=== PATIENT | male | born 1980 | race Asian ===

== ENCOUNTER 2021-11-03 14:36 | Inpatient (IN) | payer BC, SELFPAY ==
[~2021-11-03] VITALS: Ht 180.3 cm; Wt 136.1 kg
[2021-11-03 14:36] VITALS: BP_SYST 103
--- NOTE | 2021-11-03 14:45 | NUR ---
PATIENT BIBA FROM HOME AFTER FAMILY UNABLE TO REACH PATIENT ON PHONE. PATIENT FOUND DOWN WITH CYANOTIC LIPS, PER REPORT FROM FIRE AND ENGINEERING PROJECT DESIGNER. PLACED ON NRB DURING TRANSPORT BY FIRE. NO SIGNIFICANT MEDICAL HX. NO PREVIOUS COVID VACCINATION, BUT PER PATIENT, POSITIVE FOR COVID 2 WEEKS AGO.
--- NOTE | 2021-11-03 14:45 | NUR ---
Patient to ER bed 8 to gown for evaluation. Side rails up. Report given to .
--- NOTE | 2021-11-03 15:00 | NUR ---
ER at bedside examining patient.
[2021-11-03 15:25] LABS: HEMATOCRIT 42.9 % (36-54); HEMOGLOBIN 14.7 g/dL (14.0-18.0); MEAN CORPUSCULAR HEMOGLOBIN 27 pg (27-31); MEAN CORPUSCULAR HGB CONC 34 % (32-36); MEAN CORPUSCULAR VOLUME 79 fL (79.0-98.0); PLATELET COUNT (AUTO) 281 K/uL (130-430); RED CELL DISTRIBUTION WIDTH 14.3 % (9.0-15.0); WHITE BLOOD COUNT (AUTO) 12.8 K/uL (4.8-10.8)
--- NOTE | 2021-11-03 15:30 | NUR ---
88% ON NRB 100%. NOTIFIED MD GRAMAJO. NO NEW ORDERS
[2021-11-03 15:36] LABS: CALCIUM 7.6 mg/dL (8.4-11.0); CREATININE 1.72 mg/dL (0.55-1.30); POTASSIUM 3.1 mmol/L (3.5-5.1)
[2021-11-03 15:41] LABS: ALBUMIN 2.2 g/dL (3.4-4.8); TOTAL BILIRUBIN 0.9 mg/dL (0.0-1.0)
--- NOTE | 2021-11-03 16:30 | NUR ---
REC'D CRITICAL FOR POSITIVE COVID. MD GRAMAJO AWARE.
[2021-11-03] MEDS ORDERED: IOHEXOL 350 mgI/mL, 150 ML INFUS..BTL IV ONE ×2 (17:00→17:53)
[2021-11-03] MEDS ORDERED: AZITHROMYCIN 1,000 MG in NS 250 ML IV ONE (17:15)
[2021-11-03 17:26] LABS: BAND % (MANUAL) 11 % (0-6); BASOPHILS % (MANUAL) 0 % (0-2); EOSINOPHILS % (MANUAL) 0 % (0-7); LYMPHOCYTES % (MANUAL) 9 % (20-46); MONOCYTES % (MANUAL) 2 % (0-11)
[2021-11-03] MEDS ORDERED: DEXAMETHASONE SOD PHOSPHATE 4 MG/ML VIAL IVP ONE (17:30)
[2021-11-03] MEDS ORDERED: cefTRIAXone 1 GM in D5W 50 ML IV ONE (17:45)
[2021-11-03] MEDS ORDERED: AZITHROMYCIN 500 MG in NS 250 ML IV ONE (17:45)
[2021-11-03] MEDS ORDERED: cefTRIAXone 1 GM VIAL ONE (17:48)
--- NOTE | 2021-11-03 18:02 | NUR ---
PATIENT AT CT
[2021-11-03] MEDS ORDERED: MORPHINE 4 MG INJ. 4 MG/ML VIAL ONE (18:09)
[2021-11-03] MEDS ORDERED: AZITHROMYCIN 500 MG/VIAL (ZITHROMAX) IV ONE (18:13)
[2021-11-03] MEDS: MORPHINE 4 MG INJ. 4 MG/ML VIAL IVP PRN (18:39)
--- NOTE | 2021-11-03 19:10 | NUR ---
received report from day shift RN. Pt sitting in bed, on NRB, NAD.
--- NOTE | 2021-11-03 22:50 | NUR ---
s/w Dr. Soliz regarding patient desaturating on NRB. VORB to initiate Hi flow O2 and if no improvment ok to use Hi flow with NRB.
[2021-11-03] MEDS: ENOXAPARIN SODIUM 40 MG/0.4 ML SYRINGE SUBCUT SCH (23:13)
[2021-11-03] MEDS: FAMOTIDINE PF 20 MG/2 ML VIAL IVP SCH (23:13)
--- NOTE | 2021-11-04 03:00 | NUR ---
NRB facemask applied in addition to HFNC, SPO2 increases to 93%.
[2021-11-04 08:01] LABS: BASOPHILS % (AUTO) 0.4 % (0.0-2.0); EOSINOPHILS % (AUTO) 0.2 % (0.0-4.0); HEMATOCRIT 43.2 % (36-54); HEMOGLOBIN 14.6 g/dL (14.0-18.0); LYMPHOCYTES # (AUTO) 0.6 K/uL (1.0-5.5); LYMPHOCYTES % (AUTO) 5.3 % (20.5-51.5); MEAN CORPUSCULAR HEMOGLOBIN 27 pg (27-31); MEAN CORPUSCULAR HGB CONC 34 % (32-36); MEAN CORPUSCULAR VOLUME 81 fL (79.0-98.0); MONOCYTES # (AUTO) 0.7 K/uL (0.0-1.0); MONOCYTES % (AUTO) 5.7 % (1.7-9.3); NEUTROPHILS # (AUTO) 10.6 K/uL (1.8-7.7); NEUTROPHILS % (AUTO) 88.4 % (40.0-70.0); PLATELET COUNT (AUTO) 221 K/uL (130-430); RED BLOOD CELL COUNT(AUTO) 5.32 MIL/uL (4.2-6.2); RED CELL DISTRIBUTION WIDTH 14.4 % (9.0-15.0); WHITE BLOOD COUNT (AUTO) 11.9 K/uL (4.8-10.8)
[2021-11-04 08:11] LABS: CALCIUM 7.9 mg/dL (8.4-11.0); CREATININE 1.24 mg/dL (0.55-1.30); POTASSIUM 3.8 mmol/L (3.5-5.1)
[2021-11-04 08:15] LABS: ALBUMIN 2.2 g/dL (3.4-4.8); TOTAL BILIRUBIN 0.8 mg/dL (0.0-1.0)
[2021-11-04] MEDS ORDERED: cefTRIAXone 1 GM VIAL ONE (08:41)
[2021-11-04] MEDS ORDERED: AZITHROMYCIN 500 MG/VIAL (ZITHROMAX) IV ONE (08:43)
[2021-11-04 08:58] LABS: C-REACTIVE PROTEIN QUANT 26.4 mg/dL (0-0.5)
[2021-11-04] MEDS ORDERED: cefTRIAXone 1 GM in D5W 50 ML IV SCH ×4 (09:00)
[2021-11-04] MEDS ORDERED: AZITHROMYCIN 500 MG in NS 250 ML IV SCH (09:00)
[2021-11-04] MEDS ORDERED: DEXAMETHASONE SOD PHOSPHATE 4 MG/ML VIAL IVP SCH (09:00)
--- NOTE | 2021-11-04 09:06 | NUR ---
REPORT GIVEN TO NIKOLAS RICHARD/ DANY RICHARD
--- NOTE | 2021-11-04 09:10 | NUR ---
POC reviewed, Pt. denies SOB on HIFLO O2 and non rebreather, O2 sat 94%, denies SOB, IV to left arm infiltrated and IV to right arm was out of place
[2021-11-04] MEDS: DEXAMETHASONE SOD PHOSPHATE 4 MG/ML VIAL IVP SCH (09:15)
[2021-11-04] MEDS: ENOXAPARIN SODIUM 40 MG/0.4 ML SYRINGE SUBCUT SCH (09:16)
[2021-11-04] MEDS: FAMOTIDINE PF 20 MG/2 ML VIAL IVP SCH (09:16)
[2021-11-04] MEDS: CHOLECALCIFEROL (VITAMIN D3) 5,000 UNIT TABLET PO SCH (09:26)
[2021-11-04] MEDS: ASCORBIC ACID 500 MG TABLET PO SCH ×2 (09:26→21:00)
--- NOTE | 2021-11-04 10:00 | NUR ---
3 attempts to restart IV unsuccessful at this time
[2021-11-04] MEDS: DOXYCYCLINE HYCLATE 100 MG in D5W 100 ML IV SCH ×3 (13:00)
[2021-11-04] MEDS ORDERED: TOCILIZUMAB 800 MG in NS 100 ML IV ONE (16:00)
--- NOTE | 2021-11-04 19:46 | NUR ---
Assumed care of patient at change of shift. Introduced self to patient, resting comfortably at this time in mild distress but is tolerable per patient. Patient noted to have pox of 80% on high flow o2 but when placed w/ nrb at 15l pox noted to increase to 92%. patient currently receiving iv abx w/o any adverse reaction. iv site to RAC patent and intact. Bed to low position sr up, continue to monitor.
--- NOTE | 2021-11-04 21:30 | NUR ---
patient resting comfortably at this time in no acute distress. delay in administrating medication 2nd to medication not available. patient still saturating at 92% on nrb and high flow oxygen. Continue to monitor. bed to low position sr up.
--- NOTE | 2021-11-04 23:30 | NUR ---
patient still saturating at 92% on nrb and high flow oxygen. to be medicated as ordered, iv site patent and intact. bed to low position sr up, continue to monitor.
[2021-11-05] VITALS (9 sets, daily range): BP systolic 109–146
[2021-11-05] MEDS: IVERMECTIN 3 MG TABLET PO SCH
--- NOTE | 2021-11-05 01:30 | NUR ---
patient resting comfortably at this time in no acute distress. bed to low position sr up.
--- NOTE | 2021-11-05 07:06 | NUR ---
patient resting comfortably at this time. Still in mild/mod distress. Bed to low position sr up, continue to monitor.
[2021-11-05] MEDS: DEXAMETHASONE SOD PHOSPHATE 4 MG/ML VIAL IVP SCH (08:49)
[2021-11-05] MEDS: DOXYCYCLINE HYCLATE 100 MG in D5W 100 ML IV SCH (08:49)
[2021-11-05] MEDS: FAMOTIDINE PF 20 MG/2 ML VIAL IVP SCH ×3 (08:50→21:00)
[2021-11-05] MEDS: ENOXAPARIN SODIUM 40 MG/0.4 ML SYRINGE SUBCUT SCH (08:52)
[2021-11-05] MEDS ORDERED: cefTRIAXone 1 GM in D5W 50 ML IV SCH (09:00)
--- NOTE | 2021-11-05 09:15 | NUR ---
IV IN RIGHT A/C NOT WORKING, SALINE LOCK DISCONTINUED, CATHETER KINKED. NEW IV INSERTED IN RIGHT A/C USING 22 GAUGE CATHETER, AFTER 3 ATTEMPTS.
--- NOTE | 2021-11-05 09:55 | NUR ---
pt's sister Jocy called, updated her on his status.
--- NOTE | 2021-11-05 10:33 | NUR ---
Dietitian Recommendations *Recommend: [facility]. Please see Nutritional Assessment for details. CHAPARRITA VELAZQUEZ
--- NOTE | 2021-11-05 11:20 | NUR ---
IV SITE IN RIGHT INFILTRATED, AND D/CD. DR COLLAZO ATTEMPTED TO INSERT IV INTO RIGHT JUGULAR AND RIGHT FEMORAL AREA WITH NO SUCCESS.
[2021-11-05] MEDS: CHOLECALCIFEROL (VITAMIN D3) 5,000 UNIT TABLET PO SCH (12:04)
[2021-11-05] MEDS: ASCORBIC ACID 500 MG TABLET PO SCH ×2 (12:04→21:00)
--- NOTE | 2021-11-05 15:05 | NUR ---
TRANSFERRED CARE TO JOSE MANUEL IABRRA. ALL PERSONAL BELONGINGS MOVED TO ASSIGNED ROOM.
--- NOTE | 2021-11-05 15:51 | NUR ---
CONSULT ID CONSULTING MD: DR. JOHNSON PERSON NOTIFIED: MINDY DIALED: [phone] ORDERED BY: DR. DIAZ FAXED FACE SHEET
--- NOTE | 2021-11-05 17:14 | NUR ---
Received Patient Received patient in ICU at 1510. Patient is alert and oriented x4 having shortness of breath. Oxygen saturation in the high 80's and low 90's on a combination high flow nasal cannula and facemask. Patient does not have an IV line, PICC line has been consented and ordered. Patient is able to turn and prone self. Addendum: 11/05/21 at 1717 by John Varela RN Received patient at 1510
[2021-11-05 19:26] LABS: INR 1.1 (0.80-1.20); PROTHROMBIN TIME 11.7 SECS (9.5-12.5)
[2021-11-05 19:35] LABS: BILIRUBIN,URINE NEGATIVE (NEGATIVE); BLOOD, URINE NEGATIVE (NEGATIVE); CLARITY/URINE CLEAR (CLEAR); COLOR,URINE YELLOW (YELLOW); GLUCOSE,URINE NEGATIVE (NEGATIVE); KETONES,URINE NEGATIVE (NEGATIVE); LEUKOCYTE ESTERASE ,URINE NEGATIVE (NEGATIVE); NITRITE, URINE NEGATIVE (NEGATIVE); PH,URINE 6.5 (5.0-8.0); PROTEIN URINE TRACE (NEGATIVE)
[2021-11-05 21:01] LABS: BACTERIA,URINE MODERATE /HPF (None Seen)
--- NOTE | 2021-11-05 23:29 | NUR ---
PAGED FOR ORDERS SPOKE TO: ROBYN
--- NOTE | 2021-11-05 23:55 | NUR ---
PAGED FOR ORDERS SECOND ATTEMPT SPOKE TO: AUTOMATED EXCHANGE
[2021-11-06] VITALS (26 sets, daily range): BP systolic 74–164
[2021-11-06] MEDS: DOXYCYCLINE HYCLATE 100 MG in D5W 100 ML IV SCH ×3 (00:21→08:32)
[2021-11-06] MEDS: D5/0.45 NS 1,000 ML IV SCH ×2 (02:00→15:20)
[2021-11-06] MEDS: PIPERACILLIN/TAZO 4.5GM/DEX-IS 100 ML IV SCH ×3 (06:00→23:30)
--- NOTE | 2021-11-06 07:40 | NUR ---
RCV'D PT ON HIGH FLOW AND NRB 15 LITERS. SPO2 88-93% NO DISTRESS NOTED. ABG DONE AND RESULTS GIVEN TO JOSE MANUEL GOOD. WILL CONTINUE TO MONITOR PATIENT.
[2021-11-06 08:37] LABS: BASOPHILS % (AUTO) 0.2 % (0.0-2.0); EOSINOPHILS # (AUTO) 0.1 K/uL (0.0-0.4); EOSINOPHILS % (AUTO) 1.1 % (0.0-4.0); HEMATOCRIT 48.5 % (36-54); HEMOGLOBIN 16.1 g/dL (14.0-18.0); LYMPHOCYTES # (AUTO) 0.5 K/uL (1.0-5.5); LYMPHOCYTES % (AUTO) 4.2 % (20.5-51.5); MEAN CORPUSCULAR HEMOGLOBIN 27 pg (27-31); MEAN CORPUSCULAR HGB CONC 33 % (32-36); MEAN CORPUSCULAR VOLUME 82 fL (79.0-98.0); MONOCYTES # (AUTO) 0.6 K/uL (0.0-1.0); MONOCYTES % (AUTO) 4.8 % (1.7-9.3); NEUTROPHILS # (AUTO) 10.9 K/uL (1.8-7.7); NEUTROPHILS % (AUTO) 89.7 % (40.0-70.0); PLATELET COUNT (AUTO) 126 K/uL (130-430); RED BLOOD CELL COUNT(AUTO) 5.91 MIL/uL (4.2-6.2); RED CELL DISTRIBUTION WIDTH 14.1 % (9.0-15.0)
[2021-11-06] MEDS: CHOLECALCIFEROL (VITAMIN D3) 5,000 UNIT TABLET PO SCH (08:38)
[2021-11-06] MEDS: FAMOTIDINE PF 20 MG/2 ML VIAL IVP SCH ×2 (08:43→21:00)
[2021-11-06] MEDS: ASCORBIC ACID 500 MG TABLET PO SCH ×2 (08:43→21:00)
[2021-11-06] MEDS: ENOXAPARIN SODIUM 40 MG/0.4 ML SYRINGE SUBCUT SCH (08:45)
[2021-11-06 08:46] LABS: ALBUMIN 2.4 g/dL (3.4-4.8); CALCIUM 8.3 mg/dL (8.4-11.0); CREATININE 0.97 mg/dL (0.55-1.30); POTASSIUM 3.3 mmol/L (3.5-5.1)
[2021-11-06] MEDS ORDERED: DEXAMETHASONE SOD PHOSPHATE 4 MG/ML VIAL IVP SCH (09:00)
[2021-11-06 09:54] LABS: WHITE BLOOD COUNT (AUTO) 12.1 K/uL (4.8-10.8)
--- NOTE | 2021-11-06 11:30 | NUR ---
patient keeps taking out his Oxygen non rebreather and hihg flow nasal cannula, jessenia told patient if he keeps taking it out, we wont have a choice but to intubate him...
--- NOTE | 2021-11-06 11:47 | NUR ---
Spoke with jessenia Mari given him abg results for the patient, and also patient is borderline, remaining with hi flow or intubaion.
--- NOTE | 2021-11-06 11:53 | NUR ---
Spoke with Sanket from the nursing office about the PICC line nurse, he said he will follow up.
[2021-11-06] MEDS: DEXAMETHASONE SOD PHOSPHATE 10 MG/ML VIAL IVP SCH (12:15)
[2021-11-06] MEDS ORDERED: DEXAMETHASONE SOD PHOSPHATE 4 MG/ML VIAL ONE (13:39)
[2021-11-06] MEDS ORDERED: DEXAMETHASONE SOD PHOSPHATE 10 MG/ML VIAL ONE (13:42)
--- NOTE | 2021-11-06 14:23 | NUR ---
Spoke with mom isael, she said she will be the decision maker, and if he needs intubateion (patient) , intubate the patient.
[2021-11-06] MEDS ORDERED: MORPHINE 2 MG/ML INJ. SYRINGE IVP PRN ×2 (16:45→20:45)
[2021-11-06] MEDS ORDERED: DEXMEDETOMIDINE HCL 400 MCG in NS 96 ML IV PRN (16:45)
[2021-11-06] MEDS ORDERED: NALOXONE HCL 0.4 MG/ML AMP (NARCAN) IVP PRN (16:45)
--- NOTE | 2021-11-06 17:30 | NUR ---
GOT CALL FROM MD MOISE ABOUT ABG CHANGES. PER MD MOISE TO CHANGE RR TO 22 VT 550 PEEP 12 FIO2 100% WILL FOLLOW WITH ORDERS.
--- NOTE | 2021-11-06 17:40 | NUR ---
VENT CHANGES MADE. PT'S SPO2 REMAINS LOW 80s HR 150. MD MOISE AWARE. WILL CONTINUE TO MONITOR PATIENT.
[2021-11-06] MEDS: LORazepam 2 MG/ML VIAL IVP PRN ×3 (18:09→23:00)
[2021-11-06] MEDS ORDERED: NOREPINEPHRINE BITARTRATE 4 MG in D5W 246 ML IV PRN (19:15)
[2021-11-06] MEDS ORDERED: MIDAZOLAM IN NACL,ISO-OSMOT/PF 100 ML IV PRN (19:15)
[2021-11-06] MEDS ORDERED: NOREPINEPHRINE BITARTRATE 8 MG in D5W 246 ML IV PRN (19:45)
[2021-11-06] MEDS ORDERED: NOREPINEPHRINE 4 MG/4 ML VIAL IV ONE (19:51)
[2021-11-06] MEDS: IVERMECTIN 3 MG TABLET PO SCH (21:00)
[2021-11-06] MEDS: PROPOFOL DRIP 100 ML IV PRN (21:15)
[2021-11-06] MEDS ORDERED: KCL 40 mEq in 100 mL (PREMIX) 100 ML IV ONE (22:00)
[2021-11-07] VITALS (26 sets, daily range): BP systolic 81–155
[2021-11-07] MEDS: PROPOFOL DRIP 100 ML IV PRN ×8 (00:15→23:00)
--- NOTE | 2021-11-07 05:00 | NUR ---
PAGED FOR CONSULT ORDERING PHYSICIAN: REASON FOR CONSULT: ARRYTHMIA DIALED: [phone] SPOKE TO: JIMENA
[2021-11-07] MEDS: D5/0.45 NS 1,000 ML IV SCH ×2 (05:54→09:40)
[2021-11-07] MEDS: PIPERACILLIN/TAZO 4.5GM/DEX-IS 100 ML IV SCH ×3 (06:17→22:00)
--- NOTE | 2021-11-07 06:58 | NUR ---
PT IN BED IN PRONE POSITION, DEPENDENT EAR, EYES, NOSE, FACE FREE FROM PRESSURE. PICC LINE OBTAINED AT START OF SHIFT, POSITION VERIFIED AND OK TO USE BY PICC NURSE. PT SEDATED WITH PROPOFOL AND VERSED THROUGHOUT SHIT. PT RECEIVED TWO DOSES OF 2 MG LORAZEPAM DURING SHIFT. PT IS ADEQUATELY SEDATED, WITH INCREASED WORK OF BREATHING AND DESATURATION WITH ACTIVITY. PT ON LEVOPHED FOR 4 HOURS THROUGHOUT SHIT, CURRENTLY ON HOLD. POTASSIUM REPLACEMENT WITH 40 MEQ. ABX ADMINISTERED ORDERED. PT REMAINS AFEBRILE.
--- NOTE | 2021-11-07 07:15 | NUR ---
RECEIVED REPORT FROM ENDORSING HOSPICE EDUCATOR RN FOR CONTINUITY OF CARE, PATIENT LYING ON BED WITH IVF OF 1/2 NS @ 75, ON DIPRIVAN @ 50 MCG/KG/MIN,VERSED @ 10 ML/HR, ON AC RATE OF 22, TIDAL VOLUME OF 550, FIO2 100% AND pEEP OF 12. PEREZ CATHETER IN PLACE HARESH URINE IN COLOR DRAINING TO GRAVITY, BED LOCKED AT LOWEST POSITION, FALL AND SAFETY PRECAUTION IN PLACE. WILL CONTINUE TO MONITOR.
[2021-11-07 08:15] LABS: BASOPHILS % (AUTO) 0.3 % (0.0-2.0); EOSINOPHILS % (AUTO) 0.2 % (0.0-4.0); HEMATOCRIT 47.6 % (36-54); HEMOGLOBIN 15.8 g/dL (14.0-18.0); LYMPHOCYTES # (AUTO) 0.3 K/uL (1.0-5.5); LYMPHOCYTES % (AUTO) 2.1 % (20.5-51.5); MEAN CORPUSCULAR HEMOGLOBIN 28 pg (27-31); MEAN CORPUSCULAR HGB CONC 33 % (32-36); MEAN CORPUSCULAR VOLUME 84 fL (79.0-98.0); MONOCYTES # (AUTO) 0.4 K/uL (0.0-1.0); MONOCYTES % (AUTO) 2.9 % (1.7-9.3); NEUTROPHILS # (AUTO) 13.2 K/uL (1.8-7.7); NEUTROPHILS % (AUTO) 94.5 % (40.0-70.0); PLATELET COUNT (AUTO) 154 K/uL (130-430); RED BLOOD CELL COUNT(AUTO) 5.66 MIL/uL (4.2-6.2); RED CELL DISTRIBUTION WIDTH 14.8 % (9.0-15.0); WHITE BLOOD COUNT (AUTO) 13.9 K/uL (4.8-10.8)
[2021-11-07 08:55] LABS: ALBUMIN 2.5 g/dL (3.4-4.8); CALCIUM 7.8 mg/dL (8.4-11.0); CREATININE 1.11 mg/dL (0.55-1.30); PHOSPHORUS 7.9 mg/dL (2.7-4.5); POTASSIUM 4.1 mmol/L (3.5-5.1); TOTAL BILIRUBIN 1.2 mg/dL (0.0-1.0)
[2021-11-07] MEDS: ASCORBIC ACID 500 MG TABLET PO SCH ×2 (09:25→22:20)
[2021-11-07] MEDS: CHOLECALCIFEROL (VITAMIN D3) 5,000 UNIT TABLET PO SCH (09:25)
[2021-11-07] MEDS: ENOXAPARIN SODIUM 40 MG/0.4 ML SYRINGE SUBCUT SCH (09:26)
[2021-11-07] MEDS: DEXAMETHASONE SOD PHOSPHATE 10 MG/ML VIAL IVP SCH (09:27)
[2021-11-07] MEDS: FAMOTIDINE PF 20 MG/2 ML VIAL IVP SCH ×2 (09:27→22:20)
[2021-11-07] MEDS: DOXYCYCLINE HYCLATE 100 MG in D5W 100 ML IV SCH ×2 (09:30→22:19)
[2021-11-07] MEDS ORDERED: ETOMIDATE 20 MG/ 10 ML VIAL (AMIDATE) ONE (11:37)
[2021-11-07] MEDS ORDERED: ROCURONIUM BROMIDE 10 MG/ML (ZEMURON) ONE (11:37)
[2021-11-07] MEDS: MIDAZOLAM IN NACL,ISO-OSMOT/PF 100 ML IV PRN (14:21)
[2021-11-07 14:34] LABS: CREATININE 1.03 mg/dL (0.55-1.30); POTASSIUM 4.6 mmol/L (3.5-5.1)
[2021-11-07 14:51] LABS: CALCIUM 6.8 mg/dL (8.4-11.0)
--- NOTE | 2021-11-07 15:15 | NUR ---
rt notes 1515 Unprone pt, assisted RN's from ICU. ETT at 24cm LL. sxn'd ett/oral prior/post unproning. Changed ett olmos. will continue to monitor pt.
--- NOTE | 2021-11-07 15:15 | NUR ---
CHANGED PATIENT TO SUPINE POSITION, OXYGEN SATURATION IS 94%.
[2021-11-07] MEDS ORDERED: CALCIUM GLUCONATE 1 GM/10 ML VIAL IVP ONE (15:30)
[2021-11-08] VITALS (29 sets, daily range): BP systolic 94–138
[2021-11-08] MEDS: PROPOFOL DRIP 100 ML IV PRN ×10 (02:00→21:25)
[2021-11-08 05:59] LABS: BASOPHILS % (AUTO) 0.2 % (0.0-2.0); EOSINOPHILS # (AUTO) 0.1 K/uL (0.0-0.4); EOSINOPHILS % (AUTO) 0.8 % (0.0-4.0); HEMATOCRIT 46.2 % (36-54); HEMOGLOBIN 15.4 g/dL (14.0-18.0); LYMPHOCYTES # (AUTO) 0.7 K/uL (1.0-5.5); LYMPHOCYTES % (AUTO) 4.3 % (20.5-51.5); MEAN CORPUSCULAR HEMOGLOBIN 28 pg (27-31); MEAN CORPUSCULAR HGB CONC 33 % (32-36); MEAN CORPUSCULAR VOLUME 82 fL (79.0-98.0); MONOCYTES # (AUTO) 0.6 K/uL (0.0-1.0); MONOCYTES % (AUTO) 3.6 % (1.7-9.3); NEUTROPHILS % (AUTO) 91.1 % (40.0-70.0); PLATELET COUNT (AUTO) 146 K/uL (130-430); RED BLOOD CELL COUNT(AUTO) 5.61 MIL/uL (4.2-6.2); RED CELL DISTRIBUTION WIDTH 14.4 % (9.0-15.0); WHITE BLOOD COUNT (AUTO) 15.4 K/uL (4.8-10.8)
[2021-11-08] MEDS: PIPERACILLIN/TAZO 4.5GM/DEX-IS 100 ML IV SCH ×3 (07:04→21:38)
[2021-11-08 07:05] LABS: ALBUMIN 2.4 g/dL (3.4-4.8); C-REACTIVE PROTEIN QUANT 0.9 mg/dL (0-0.5); CREATININE 0.95 mg/dL (0.55-1.30); PHOSPHORUS 4.7 mg/dL (2.7-4.5); POTASSIUM 4.1 mmol/L (3.5-5.1); TOTAL BILIRUBIN 1.1 mg/dL (0.0-1.0)
--- NOTE | 2021-11-08 07:20 | NUR ---
Opening notes Received report from endorsing fast food shift supervisor RN for continuity of care. Patient lying in bed in prone position. IVF of D5 1/2 NS @60, Diprivan @ 50 mcg/kg/min, versed @ 10 mL/hr. Vent AC of 22, tidal volume 550, FIO2 100, and peep of 12. Navarrete catheter is in place draining to gravity kaylan in color. Bed locked at lowest position, fall and safety precautions is in place. Will continue to monitor.
--- NOTE | 2021-11-08 07:44 | NUR ---
Dr. Alvarado at bedside, assessed the patient. No new order given.
--- NOTE | 2021-11-08 09:12 | NUR ---
Called Dr. Soliz about the ABG critical value. pCO2 62.9 . No new orders given.
[2021-11-08] MEDS: DOXYCYCLINE HYCLATE 100 MG in D5W 100 ML IV SCH ×2 (09:27→21:38)
[2021-11-08] MEDS: D5/0.45 NS 1,000 ML IV SCH (09:30)
[2021-11-08] MEDS: FAMOTIDINE PF 20 MG/2 ML VIAL IVP SCH ×2 (09:31→21:39)
[2021-11-08] MEDS: DEXAMETHASONE SOD PHOSPHATE 10 MG/ML VIAL IVP SCH (09:31)
[2021-11-08] MEDS: ENOXAPARIN SODIUM 40 MG/0.4 ML SYRINGE SUBCUT SCH (09:32)
[2021-11-08] MEDS: ASCORBIC ACID 500 MG TABLET PO SCH ×2 (09:33→21:39)
[2021-11-08] MEDS: CHOLECALCIFEROL (VITAMIN D3) 5,000 UNIT TABLET PO SCH (09:34)
--- NOTE | 2021-11-08 10:40 | NUR ---
Family Patient family (Jocy) called for updates.
--- NOTE | 2021-11-08 11:25 | NUR ---
RT NOTES Per RN Mayco, per Dr arriaga, leave vent settings as is.
[2021-11-08] MEDS: MIDAZOLAM IN NACL,ISO-OSMOT/PF 100 ML IV PRN ×2 (12:11→21:24)
[2021-11-08 12:12] LABS: ERYTHROCYTE SEDIMENTATION RATE 5 MM/HR (0-15)
--- NOTE | 2021-11-08 16:00 | NUR ---
Reposition the patient to supine position.
--- NOTE | 2021-11-08 16:00 | NUR ---
rt notes 1600 Assisted unproning pt. Found pt ETT to be at 22cm LL. Changed ETT olmos and made sure ETT at 24cm LL. pt saturation on supine 100%. Sxn'd ett/oral prior and post unproning pt. pressure ulcer on forehead/nose noted. will continue to monitor pt.
[2021-11-09] VITALS (30 sets, daily range): BP systolic 98–133
[2021-11-09] MEDS: PROPOFOL DRIP 100 ML IV PRN ×7 (00:31→23:18)
[2021-11-09] MEDS: D5/0.45 NS 1,000 ML IV SCH ×2 (00:45→17:25)
[2021-11-09] MEDS: PIPERACILLIN/TAZO 4.5GM/DEX-IS 100 ML IV SCH ×3 (05:44→21:13)
[2021-11-09] MEDS: LORazepam 2 MG/ML VIAL IVP PRN (05:45)
[2021-11-09 07:22] LABS: HEMATOCRIT 44.5 % (36-54); HEMOGLOBIN 14.8 g/dL (14.0-18.0); MEAN CORPUSCULAR HEMOGLOBIN 28 pg (27-31); MEAN CORPUSCULAR HGB CONC 33 % (32-36); MEAN CORPUSCULAR VOLUME 83 fL (79.0-98.0); PLATELET COUNT (AUTO) 90 K/uL (130-430); RED BLOOD CELL COUNT(AUTO) 5.34 MIL/uL (4.2-6.2); RED CELL DISTRIBUTION WIDTH 14.1 % (9.0-15.0); WHITE BLOOD COUNT (AUTO) 14.9 K/uL (4.8-10.8)
[2021-11-09 08:11] LABS: ALBUMIN 2.6 g/dL (3.4-4.8); CALCIUM 7.9 mg/dL (8.4-11.0); CREATININE 0.75 mg/dL (0.55-1.30); PHOSPHORUS 4.2 mg/dL (2.7-4.5); POTASSIUM 4.3 mmol/L (3.5-5.1)
[2021-11-09] MEDS: MIDAZOLAM IN NACL,ISO-OSMOT/PF 100 ML IV PRN (08:24)
[2021-11-09] MEDS: FAMOTIDINE PF 20 MG/2 ML VIAL IVP SCH ×2 (09:00→21:13)
[2021-11-09] MEDS ORDERED: FAMOTIDINE PF 20 MG/2 ML VIAL ONE (09:15)
[2021-11-09] MEDS: DEXAMETHASONE SOD PHOSPHATE 10 MG/ML VIAL IVP SCH (09:28)
[2021-11-09] MEDS: DOXYCYCLINE HYCLATE 100 MG in D5W 100 ML IV SCH ×2 (09:29→21:08)
[2021-11-09] MEDS: ASCORBIC ACID 500 MG TABLET PO SCH ×2 (09:30→21:12)
[2021-11-09] MEDS: CHOLECALCIFEROL (VITAMIN D3) 5,000 UNIT TABLET PO SCH (09:30)
[2021-11-09] MEDS: ENOXAPARIN SODIUM 40 MG/0.4 ML SYRINGE SUBCUT SCH (09:32)
[2021-11-09 11:47] LABS: BAND % (MANUAL) 10 % (0-6); LYMPHOCYTES % (MANUAL) 6 % (20-46)
[2021-11-09 11:48] LABS: BASOPHILS % (MANUAL) 0 % (0-2); EOSINOPHILS % (MANUAL) 0 % (0-7); MONOCYTES % (MANUAL) 3 % (0-11)
--- NOTE | 2021-11-09 19:14 | NUR ---
PT REMAINS SEDATED WITH DIPRIVAN WHICH WAS DECREASED FROM 50 MCG TO 30 MCG AND ALSO REMAINS ON VERSED DRIP OVERALL APPEARANCES FAIR IS ON VENT SR-ST ON THE MONITOR NO ACUTE DISTRESS NOTED COMFORT AND SAFETY MAINTAINED REPORT GIVEN TO INCOMING NURSE FOR FURTHER EVAL CK NURSING FLOWSHEET
[2021-11-10] VITALS (27 sets, daily range): BP systolic 91–147
[2021-11-10] MEDS: PROPOFOL DRIP 100 ML IV PRN ×4 (02:57→22:42)
[2021-11-10] MEDS: MIDAZOLAM IN NACL,ISO-OSMOT/PF 100 ML IV PRN (04:05)
--- NOTE | 2021-11-10 06:00 | NUR ---
Pt. remains sedated on Propofol titrated to 45 mcg & Versed Drip @ 10 mg w/ RASS=4 & Arroyo=4. VSS. O2Sat 88 to 97% on 60% Fi02. SR to ST on the scope. No Feeding pump available and attempted 1 bolus of Vital 120 ml; pt. vomitted up secretions but not Tube Feeding. Will endorse to start feeding when machine available. COVID precautions enforced. Bloody secretions suctioned from ETT in small amounts. Will cont. to monitor.
[2021-11-10] MEDS: PIPERACILLIN/TAZO 4.5GM/DEX-IS 100 ML IV SCH ×4 (07:00→21:18)
[2021-11-10 07:01] LABS: BASOPHILS % (AUTO) 0.3 % (0.0-2.0); EOSINOPHILS # (AUTO) 0.1 K/uL (0.0-0.4); EOSINOPHILS % (AUTO) 0.5 % (0.0-4.0); HEMATOCRIT 41.8 % (36-54); HEMOGLOBIN 13.6 g/dL (14.0-18.0); LYMPHOCYTES # (AUTO) 0.8 K/uL (1.0-5.5); LYMPHOCYTES % (AUTO) 5.5 % (20.5-51.5); MEAN CORPUSCULAR HEMOGLOBIN 27 pg (27-31); MEAN CORPUSCULAR HGB CONC 33 % (32-36); MEAN CORPUSCULAR VOLUME 83 fL (79.0-98.0); MONOCYTES # (AUTO) 0.7 K/uL (0.0-1.0); MONOCYTES % (AUTO) 4.4 % (1.7-9.3); NEUTROPHILS # (AUTO) 13.7 K/uL (1.8-7.7); NEUTROPHILS % (AUTO) 89.3 % (40.0-70.0); PLATELET COUNT (AUTO) 135 K/uL (130-430); RED BLOOD CELL COUNT(AUTO) 5.02 MIL/uL (4.2-6.2); RED CELL DISTRIBUTION WIDTH 14.5 % (9.0-15.0); WHITE BLOOD COUNT (AUTO) 15.3 K/uL (4.8-10.8)
[2021-11-10 07:21] LABS: ALBUMIN 2.5 g/dL (3.4-4.8); CALCIUM 7.8 mg/dL (8.4-11.0); CREATININE 0.79 mg/dL (0.55-1.30); PHOSPHORUS 4.6 mg/dL (2.7-4.5); POTASSIUM 4.2 mmol/L (3.5-5.1); TOTAL BILIRUBIN 0.9 mg/dL (0.0-1.0)
--- NOTE | 2021-11-10 08:20 | NUR ---
RT NOTES Pt saturation improved after ET sxn. Will cont to monitor pt
[2021-11-10] MEDS: FAMOTIDINE PF 20 MG/2 ML VIAL IVP SCH ×2 (08:45→20:47)
[2021-11-10] MEDS: ENOXAPARIN SODIUM 40 MG/0.4 ML SYRINGE SUBCUT SCH (08:45)
[2021-11-10] MEDS: ASCORBIC ACID 500 MG TABLET PO SCH ×2 (08:46→20:48)
[2021-11-10] MEDS: DEXAMETHASONE SOD PHOSPHATE 10 MG/ML VIAL IVP SCH (08:46)
[2021-11-10] MEDS: CHOLECALCIFEROL (VITAMIN D3) 5,000 UNIT TABLET PO SCH (08:47)
[2021-11-10] MEDS: D5/0.45 NS 1,000 ML IV SCH (08:47)
[2021-11-10] MEDS: DOXYCYCLINE HYCLATE 100 MG in D5W 100 ML IV SCH ×2 (08:52→20:47)
--- NOTE | 2021-11-10 10:06 | NUR ---
rec'd report from offgoing nurse, stated she bolus tubefeeding to pt because she couldn't find tubefeeding pump and stated pt vomit afterward but did not call his physician, which this contract technical writer did inform physician and rec'd order for stat cxr also tubefeeding pump was rec'd also comfort and safety maintained, will continue to monitor pt condition
--- NOTE | 2021-11-10 16:44 | NUR ---
Nutrition F/U Admitting Diagnosis SOB Reviewed Pertinent Medical/Surgical Hx Medical Record Other Medical History Comment: COVID-19, Hypoxic Respiratory Failure, Obesity, unvaccinated status per MD notes. SARS-CoV-2 Ag (Rapid) 1/[address] bedside visit deferred d/t airborne isolation precautions a/w COVID. RD rounded to ICU and spoke w/ pt's primary RN who reported that pt was bolus fed last night d/t lack of TF pumps, and had an episode of emesis, but this morning, was placed on continuous TF via pump that was found later. She also reported that pt had lot of loose stools. RD relayed rec for including protein supplement for pt to better meet nutritional needs; RN acknowledged. Per EMR review, pt has been intubated/ sedated since 11/06; TF Intakes: 100 ml 11/09; abd is soft and non-distended w/ active bowel sounds; Kali scale: 9 w/ wound to upper face; last BM x2 11/09. Pt is not yet meeting nutritional needs. Current Diet Order/Nutrition Support Vital AF 1.2 at 30 ml/hr, Tacos BID, Free Water Flush: 150 q 6h via OGT x0 days Provides (w/ current propofol and D5% IVs): 2259 kcal/day, 59 gm protein/day, and 1184 ml free water/day Meets: 81% of estimated caloric needs and 50% of lower end of estimated protein needs Patient/Significant Other Unable To Verbalize Education Provided Not Indicated Pertinent Medications propofol at 36.741 ml/hr (970 kcal/day), piperacillin/tazobactam IV, decadron, zinc, VIT C, VIT D3, lovenox, D5%NS at 60 ml/hr (245 kcal/day) Pertinent Labs Na 141 WNL, K 4.2 WNL, BG 157 H, BUN 28 H, CRE 0.79 WNL, AST 103 H, ALT 79 H, WBC 15.3 H Height (Feet) 5 feet Height (Inches) 11.00 inches Weight (Pounds) 300 pounds -- stable since 11/05 Weight (Calculated Kilograms) 136.518808 kilograms Patient Weight 136.078 kg Body Mass Index 41.84 kg/m2 %IBW 174 [facility]/Adjusted Body Weight 172#/ 78kg; Adj IBW Obesity: 204#/ 93kg Recent Weight Change Unknown Weight Status Morbidly Obese NEW Estimated Energy Expenditure (kcals/day) 2780 (PSU d/t critical illness, intubated; Ve: 18.5; Tmax: 37.3'C) Estimated Protein Required (g/day) 117-156 (1.5-2 gm/kg IBW for acute illness/obesity) Estimated Fluid Required (l/day) 2.3-2.7 (1ml/calorie for maintenance) Problem/Etiology/Signs/Symptoms Altered nutrition related labs r/t medication interaction AEB elevated BG, on steroid therapy. *seemingly improving Suboptimal EN support R/T metabolic demands AEB current TF prescription meets 81% of estimated caloric needs and 50% of lower end of estimated protein needs. *new Expected Outcomes/Goals - Monitor tolerance to EN support w/ goal of pt meeting >80% of estimated nutritional needs, labs trending WNL, normal GI function, skin integrity/wt maintenance Dietitian Recommendations * Vital AF 1.2 at 30 ml/hr, Tacos BID, Prosource TID, Free Water Flush: 150 q 6h via OGT Provides (w/ current propofol and D5% IVs): 2439 kcal/day, 104 gm protein/day, and 1184 ml free water/day Meets: 88% of estimated caloric needs and 89% of lower end of estimated protein needs Follow Up High Risk: F/U in 2-3 days
--- NOTE | 2021-11-10 16:58 | NUR ---
Dietitian Recommendations * Vital AF 1.2 at 30 ml/hr, Tacos BID, Prosource TID, Free Water Flush: 150 q 6h via OGT Provides (w/ current propofol and D5% IVs): 2439 kcal/day, 104 gm protein/day, and 1184 ml free water/day Meets: 88% of estimated caloric needs and 89% of lower end of estimated protein needs LP, RD Please refer to Nutrition F/U for details.
[2021-11-11] VITALS (26 sets, daily range): BP systolic 111–194
[2021-11-11] MEDS: PROPOFOL DRIP 100 ML IV PRN ×8 (00:53→21:53)
[2021-11-11] MEDS: MIDAZOLAM IN NACL,ISO-OSMOT/PF 100 ML IV PRN ×3 (00:55→23:59)
[2021-11-11] MEDS: D5/0.45 NS 1,000 ML IV SCH ×2 (01:33→14:56)
[2021-11-11] MEDS: PIPERACILLIN/TAZO 4.5GM/DEX-IS 100 ML IV SCH ×3 (05:30→22:03)
[2021-11-11 06:32] LABS: BASOPHILS # (AUTO) 0.1 K/uL (0.0-0.2); BASOPHILS % (AUTO) 0.4 % (0.0-2.0); EOSINOPHILS # (AUTO) 0.1 K/uL (0.0-0.4); EOSINOPHILS % (AUTO) 0.5 % (0.0-4.0); HEMATOCRIT 39.6 % (36-54); HEMOGLOBIN 13.3 g/dL (14.0-18.0); LYMPHOCYTES # (AUTO) 0.9 K/uL (1.0-5.5); LYMPHOCYTES % (AUTO) 5.9 % (20.5-51.5); MEAN CORPUSCULAR HEMOGLOBIN 28 pg (27-31); MEAN CORPUSCULAR HGB CONC 34 % (32-36); MEAN CORPUSCULAR VOLUME 82 fL (79.0-98.0); MONOCYTES # (AUTO) 0.6 K/uL (0.0-1.0); MONOCYTES % (AUTO) 4.4 % (1.7-9.3); NEUTROPHILS # (AUTO) 13.2 K/uL (1.8-7.7); NEUTROPHILS % (AUTO) 88.8 % (40.0-70.0); PLATELET COUNT (AUTO) 147 K/uL (130-430); RED BLOOD CELL COUNT(AUTO) 4.81 MIL/uL (4.2-6.2); RED CELL DISTRIBUTION WIDTH 14.3 % (9.0-15.0); WHITE BLOOD COUNT (AUTO) 14.8 K/uL (4.8-10.8)
[2021-11-11 06:48] LABS: ALBUMIN 2.5 g/dL (3.4-4.8); CALCIUM 7.7 mg/dL (8.4-11.0); CREATININE 0.64 mg/dL (0.55-1.30); PHOSPHORUS 3.9 mg/dL (2.7-4.5); POTASSIUM 4.1 mmol/L (3.5-5.1); TOTAL BILIRUBIN 0.8 mg/dL (0.0-1.0)
[2021-11-11] MEDS: CHOLECALCIFEROL (VITAMIN D3) 5,000 UNIT TABLET PO SCH (08:55)
[2021-11-11] MEDS: ENOXAPARIN SODIUM 40 MG/0.4 ML SYRINGE SUBCUT SCH (09:04)
[2021-11-11] MEDS: ASCORBIC ACID 500 MG TABLET PO SCH ×2 (09:17→21:36)
[2021-11-11] MEDS: DOXYCYCLINE HYCLATE 100 MG in D5W 100 ML IV SCH ×2 (09:17→21:35)
[2021-11-11] MEDS: DEXAMETHASONE SOD PHOSPHATE 10 MG/ML VIAL IVP SCH (09:18)
[2021-11-11] MEDS: FAMOTIDINE PF 20 MG/2 ML VIAL IVP SCH ×2 (09:19→21:36)
[2021-11-11] MEDS: MORPHINE 4 MG INJ. 4 MG/ML VIAL IVP PRN ×2 (09:55→18:33)
--- NOTE | 2021-11-11 10:50 | NUR ---
Notified Dr Soliz about the critical value PH 7.428, PCO2 49, PO2 54.2 on vent settings A/C 22 TV550, FIO2 50% PEEP 8 order received to increase FIO2 80% to keep O2 sat >92% and repeat ABG in 2hrs Jyoti campbell.
--- NOTE | 2021-11-11 11:33 | NUR ---
Received call from Jocy Thompson pt's sister updates on pt's condition, vent settings, O2 sat education on care plan encouraged to ask questions and she verbalized understanding.
--- NOTE | 2021-11-11 16:32 | NUR ---
Notified Dr Soliz latest ABG results PH 7.338, PCO2 60, PO2 88 no new order received to change pt's vent settings still on A/C 22 FIO2 80% TV 550 PEEP 8 O2 sat improve up to 98% and updates MIKI CRUZ RCP no new order.
[2021-11-11] MEDS ORDERED: FUROSEMIDE 40 MG/4 ML VIAL IVP ONE (17:00)
--- NOTE | 2021-11-11 18:45 | NUR ---
Complete CHG bed bath given oral care pt tolerated with mild discomfort tachycardia, tachypnea Morphine 4 mg ivp given in addition to Propofol and Versed drip, will continue to monitor and treat as per care plan.
--- NOTE | 2021-11-11 19:40 | NUR ---
RECEIVED REPORT FROM DAY RN, ASSUMED CARE, AND STARTED ASSESSMENT. 2300- PARTIAL BED BATH AND PARTIAL LINEN CHANGE GIVEN. WILL CONTINUWE TOMONITOR AND ASSESS FOR SAFETY AND COMFORT.
--- NOTE | 2021-11-11 19:40 | NUR ---
Change of shift report to Ace RICHARD for pt's continuity of care updates on IV drips vent settings as at this time no changes in pt's condition and care plan
[2021-11-12] VITALS (26 sets, daily range): BP systolic 88–158
[2021-11-12] MEDS: PROPOFOL DRIP 100 ML IV PRN ×8 (01:01→18:12)
[2021-11-12 06:51] LABS: HEMATOCRIT 43.3 % (36-54); HEMOGLOBIN 14.4 g/dL (14.0-18.0); MEAN CORPUSCULAR HEMOGLOBIN 28 pg (27-31); MEAN CORPUSCULAR HGB CONC 33 % (32-36); MEAN CORPUSCULAR VOLUME 83 fL (79.0-98.0); PLATELET COUNT (AUTO) 196 K/uL (130-430); RED CELL DISTRIBUTION WIDTH 14.9 % (9.0-15.0); WHITE BLOOD COUNT (AUTO) 21.8 K/uL (4.8-10.8)
[2021-11-12] MEDS: PIPERACILLIN/TAZO 4.5GM/DEX-IS 100 ML IV SCH ×3 (07:00→22:49)
[2021-11-12 07:06] LABS: ALANINE AMINOTRANSFERASE 92 U/L (12-78); ALBUMIN 2.8 g/dL (3.4-4.8); ANION GAP 6 (5-15); ASPARTATE AMINOTRANSFERASE 81 U/L (10-37); CALCIUM 8.2 mg/dL (8.4-11.0); CHLORIDE 100 mmol/L (98-107); CREATININE 0.94 mg/dL (0.55-1.30); GLUCOSE 157 mg/dL (70-99); PHOSPHORUS 5.9 mg/dL (2.7-4.5); POTASSIUM 4.4 mmol/L (3.5-5.1); SODIUM SERUM 139 mmol/L (136-145); TOTAL BILIRUBIN 1.1 mg/dL (0.0-1.0); UREA NITROGEN, BLOOD 35 mg/dL (8-21)
[2021-11-12 07:15] LABS: GFR AFRICAN AMERICAN 113 mL/min (>90)
--- NOTE | 2021-11-12 07:15 | NUR ---
OPENING NOTE: REPORT RCVD FROM OUTGOING RN, ALL CARES ASSUMED.
--- NOTE | 2021-11-12 07:30 | NUR ---
PATIENT SINUS TACH ON MONITOR, TACHYPNEIC WITH NOTABLE IRREGULAR RESPIRATORY PATTERN. SEDATION INCREASED PER PROTOCOL.
[2021-11-12 07:46] LABS: C-REACTIVE PROTEIN QUANT < 0.2 mg/dL (0-0.5)
[2021-11-12] MEDS: DOXYCYCLINE HYCLATE 100 MG in D5W 100 ML IV SCH ×2 (08:37→21:21)
[2021-11-12] MEDS: MIDAZOLAM IN NACL,ISO-OSMOT/PF 100 ML IV PRN ×2 (08:37→18:12)
[2021-11-12] MEDS: MORPHINE 4 MG INJ. 4 MG/ML VIAL IVP PRN (08:38)
[2021-11-12 09:28] LABS: BAND % (MANUAL) 10 % (0-6); BASOPHILS % (MANUAL) 0 % (0-2); EOSINOPHILS % (MANUAL) 0 % (0-7); LYMPHOCYTES % (MANUAL) 4 % (20-46); MONOCYTES % (MANUAL) 5 % (0-11)
[2021-11-12] MEDS: DEXAMETHASONE SOD PHOSPHATE 10 MG/ML VIAL IVP SCH (10:25)
[2021-11-12] MEDS: ASCORBIC ACID 500 MG TABLET PO SCH ×2 (10:25→21:21)
[2021-11-12] MEDS: FAMOTIDINE PF 20 MG/2 ML VIAL IVP SCH ×2 (10:25→21:21)
[2021-11-12] MEDS: CHOLECALCIFEROL (VITAMIN D3) 5,000 UNIT TABLET PO SCH (10:25)
[2021-11-12] MEDS: ENOXAPARIN SODIUM 40 MG/0.4 ML SYRINGE SUBCUT SCH (10:27)
--- NOTE | 2021-11-12 10:30 | NUR ---
SPOKE WITH FAMILY OVER PHONE, UPDATES GIVEN AND ALL QUESTIONS ANSWERED AT THIS TIME. FAMILY EXPRESSES NO FURTHER NEEDS AT THIS TIME AND IS GRATEFUL FOR CARE BEING PROVIDED.
[2021-11-12] MEDS ORDERED: NALOXONE HCL 0.4 MG/ML AMP (NARCAN) IVP PRN (11:00)
[2021-11-12] MEDS ORDERED: MORPHINE SULFATE IN 0.9 % NACL 100 ML IV ONE (11:09)
--- NOTE | 2021-11-12 11:45 | NUR ---
Paged Dr. Soliz r/t ABG results, pending return call at this time.
--- NOTE | 2021-11-12 12:00 | NUR ---
SPOKE WITH MD MOISE, NEW ORDERS OBTAINED AND TRANSCRIBED.
[2021-11-12] MEDS: D5/0.45 NS 1,000 ML IV SCH (12:37)
--- NOTE | 2021-11-12 12:37 | NUR ---
Nutrition F/U Admitting Diagnosis SOB Medical History Comment: COVID-19, Hypoxic Respiratory Failure, Obesity, unvaccinated status per MD notes. SARS-CoV-2 Ag (Rapid) 11/03 Positive Subjective Information: RD bedside visit was deferred d/t COVID isolation. Pt was seen through glass door/window in ICU. No EN hanging at time of visit. RN was not available during rounds in ICU. Per EMR review, pt developed facial laceration from proning, remains sedated on vent support, and pt is unable to be weaned off the vent. BM 11/11 x1, Kali scale: 11, wound to upper face noted by RN as well as 2+ pitting edema. EN rate: 30ml (11/12); GRV: 15ml (11/12). W/ the propofol infusion rate adjustment, pt is now meeting <75% of estimated calorie needs. Increase in EN infusion rate is warranted. Current Diet Order/Nutrition Support: Vital AF 1.2 at 30 ml/hr, Tacos BID, Prosource TID, Free Water Flush: 150 q 6h via OGT x2 days Provides (w/ current propofol and D5% IVs): 2557 kcal/day, 104 gm protein/day, and 1273 ml free water/day Meets: 57% of estimated caloric needs and 89% of lower end of estimated protein needs Pertinent Medications propofol at 4.082 ml/hr (108 kcal/day), piperacillin/tazobactam IV, decadron, zinc, VIT C, VIT D3, lovenox, D5%NS at 60 ml/hr (245 kcal/day) Pertinent Labs: reviewed. Height (Feet) 5 feet Height (Inches) 11.00 inches Weight (Pounds) 300 pounds -- stable since 11/05 Weight (Calculated Kilograms) 136.455465 kilograms Patient Weight 136.078 kg Body Mass Index 41.84 kg/m2 %IBW 174 [place]/Adjusted Body Weight 172#/ 78kg; Adj IBW Obesity: 204#/ 93kg Recent Weight Change Unknown Weight Status Morbidly Obese NEW Estimated Energy Expenditure (kcals/day) 2746 (PSU d/t critical illness, intubated; Ve: 17.4; Tmax: 37.3'C) Estimated Protein Required (g/day) 117-156 (1.5-2 gm/kg IBW for acute illness/obesity) Estimated Fluid Required (l/day) 2.3-2.7 (1ml/calorie for maintenance) Problem/Etiology/Signs/Symptoms Altered nutrition related labs r/t medication interaction AEB elevated BG, on steroid therapy. *seemingly improving Suboptimal EN support R/T metabolic demands AEB current TF prescription meets 81% of estimated caloric needs and 50% of lower end of estimated protein needs. *ongoing Inadequate EN intake r/t EN infusion rate AEB current EN order provides <75% of calorie needs. (*new) Expected Outcomes/Goals - Monitor tolerance to EN support w/ goal of pt meeting >80% of estimated nutritional needs, labs trending WNL, normal GI function, skin integrity/wt maintenance Dietitian Recommendations * Recommend: Vital AF 1.2 at 60 ml/hr, Tacos BID, Prosource TID, Free Water Flush: 150 q 6h via OGT Provides (w/ current propofol and D5% IVs): 2421 kcal/day, 158 gm protein/day, and 1184 ml free water/day Meets: 88% of estimated caloric needs and 101% of lower end of estimated protein needs Follow Up High Risk: F/U in 2-3 days
--- NOTE | 2021-11-12 12:41 | NUR ---
Dietitian Recommendations * Recommend: Vital AF 1.2 at 60 ml/hr, Tacos BID, Prosource TID, Free Water Flush: 150 q 6h via OGT Provides (w/ current propofol and D5% IVs): 2421 kcal/day, 158 gm protein/day, and 1184 ml free water/day Meets: 88% of estimated caloric needs and 101% of lower end of estimated protein needs LONGTERM, RD
--- NOTE | 2021-11-12 14:30 | NUR ---
FOREST WORKER MAKING ROUNDS, VERBAL REPORT GIVEN AT BEDSIDE. FOREST WORKER TO PLACE NEW ORDERS.
--- NOTE | 2021-11-12 15:30 | NUR ---
RT AT BEDSIDE CHANGING ETT SECUREMENT DEVICE, SKIN PROTECTION FOAM PLACED UNDER DEVICE.
[2021-11-12] MEDS: MORPHINE SULFATE IN 0.9 % NACL 100 ML IV PRN (17:24)
--- NOTE | 2021-11-12 17:50 | NUR ---
DR. MOISE MAKING ROUNDS, BEDSIDE REPORT GIVEN, ALL UPDATES REVIEWED AND DISCUSSED.
--- NOTE | 2021-11-12 19:04 | NUR ---
CLOSING NOTE: REPORT GIVEN TO NOC RN, ALL CARES ENDORSED. PATIENT IN NO ACUTE DISTRESS AND OR DISCOMFORT.
--- NOTE | 2021-11-12 20:35 | NUR ---
Dayton Thompson, Elder's oldest brother called and was angry about "someone giving HIPPA information to someone who shouldn't get it". Undersigned informed him that the only two people listed for us to give inforation to are Vish and Jocy. Stated he will call in the morning to "find out who gave out health information to my brother".
[2021-11-13] VITALS (31 sets, daily range): BP systolic 83–125
[2021-11-13] MEDS: PIPERACILLIN/TAZO 4.5GM/DEX-IS 100 ML IV SCH ×3 (06:17→21:35)
[2021-11-13 07:14] LABS: CALCIUM 8.1 mg/dL (8.4-11.0); CREATININE 1.01 mg/dL (0.55-1.30); POTASSIUM 4.1 mmol/L (3.5-5.1)
[2021-11-13 07:22] LABS: BASOPHILS % (AUTO) 0.2 % (0.0-2.0); EOSINOPHILS # (AUTO) 0.1 K/uL (0.0-0.4); EOSINOPHILS % (AUTO) 0.6 % (0.0-4.0); HEMOGLOBIN 12.2 g/dL (14.0-18.0); LYMPHOCYTES # (AUTO) 0.8 K/uL (1.0-5.5); LYMPHOCYTES % (AUTO) 5.3 % (20.5-51.5); MEAN CORPUSCULAR HEMOGLOBIN 27 pg (27-31); MEAN CORPUSCULAR HGB CONC 32 % (32-36); MEAN CORPUSCULAR VOLUME 84 fL (79.0-98.0); MONOCYTES # (AUTO) 0.7 K/uL (0.0-1.0); MONOCYTES % (AUTO) 4.6 % (1.7-9.3); NEUTROPHILS % (AUTO) 89.3 % (40.0-70.0); PLATELET COUNT (AUTO) 123 K/uL (130-430); RED BLOOD CELL COUNT(AUTO) 4.55 MIL/uL (4.2-6.2); RED CELL DISTRIBUTION WIDTH 14.8 % (9.0-15.0); WHITE BLOOD COUNT (AUTO) 14.5 K/uL (4.8-10.8)
--- NOTE | 2021-11-13 07:30 | NUR ---
Opening Note Patient is sedated in bed on Propofol running at 50mcg/kg/minute, Versed @ 10, and Morphine @ 5. Patient is intubated and VSS. shift leader informed us that only Vish and Jocy are allowed to receive patient health information. Special password given.
[2021-11-13] MEDS: CHOLECALCIFEROL (VITAMIN D3) 5,000 UNIT TABLET PO SCH (08:50)
[2021-11-13] MEDS: DOXYCYCLINE HYCLATE 100 MG in D5W 100 ML IV SCH ×2 (08:50→21:34)
[2021-11-13] MEDS: ASCORBIC ACID 500 MG TABLET PO SCH ×2 (08:51→21:35)
[2021-11-13] MEDS: ENOXAPARIN SODIUM 40 MG/0.4 ML SYRINGE SUBCUT SCH (08:51)
[2021-11-13] MEDS: FAMOTIDINE PF 20 MG/2 ML VIAL IVP SCH ×2 (08:52→21:34)
[2021-11-13] MEDS: DEXAMETHASONE SOD PHOSPHATE 10 MG/ML VIAL IVP SCH (08:52)
--- NOTE | 2021-11-13 10:10 | NUR ---
Propofol Lowered propofol rate to 45mcg/kg/minute
--- NOTE | 2021-11-13 11:55 | NUR ---
Spoke with Dr. Soliz regarding abg results, he said that current ventilator setting is fine, and just increased vents fio2 to 75% with no titration for now. Notified Erika mckeon to change the vent settings.
--- NOTE | 2021-11-13 11:55 | NUR ---
RT NOTES FIO2 TO 0.[address] arriaga's order.
--- NOTE | 2021-11-13 12:15 | NUR ---
Propofol Lowered rate to 40mcg/kg/minute.
[2021-11-13] MEDS: DEXAMETHASONE SOD PHOSPHATE 4 MG/ML VIAL IVP SCH (12:44)
[2021-11-13] MEDS: PROPOFOL DRIP 100 ML IV PRN ×2 (13:56→17:44)
[2021-11-13] MEDS: MIDAZOLAM IN NACL,ISO-OSMOT/PF 100 ML IV PRN (14:54)
[2021-11-13] MEDS: MORPHINE SULFATE IN 0.9 % NACL 100 ML IV PRN (14:55)
[2021-11-13] MEDS ORDERED: METOCLOPRAMIDE HCL 10 MG/2 ML VIAL IVP ONE ×3 (15:30→21:00)
--- NOTE | 2021-11-13 16:40 | NUR ---
rt notes 1640 Switched pt to Bariatric bed, no incident happened. ETT still 26cm LL. will continue to monitor pt.
--- NOTE | 2021-11-13 16:45 | NUR ---
Patient has been transferred to bariatric bed. No complications in transfer.
[2021-11-13] MEDS ORDERED: METOCLOPRAMIDE HCL 10 MG/2 ML VIAL IVP SCH (18:00)
--- NOTE | 2021-11-13 18:46 | NUR ---
Closing Note Patient is resting in bed, VSS. All care will be endorsed to nightshift nurse. Patient drips:Versed - 10mg, Morphine 5, Propofol 35mcg/kg/minute.
[2021-11-14] VITALS (25 sets, daily range): BP systolic 109–129
[2021-11-14] MEDS: PIPERACILLIN/TAZO 4.5GM/DEX-IS 100 ML IV SCH ×3 (06:14→21:46)
--- NOTE | 2021-11-14 07:00 | NUR ---
Recv reprot fr Mercedes rn, patient is in bed heavily sedated, vitals sign stable, orally intubated, telemetry shows sr, ogtube with feeding at 30 ml/hr , goal 60, f/c to gravity, skin warm to touch, pulses palpable, i will continue nursing care and interventions.
[2021-11-14 07:36] LABS: BASOPHILS # (AUTO) 0.1 K/uL (0.0-0.2); BASOPHILS % (AUTO) 0.6 % (0.0-2.0); EOSINOPHILS # (AUTO) 0.1 K/uL (0.0-0.4); HEMATOCRIT 36.3 % (36-54); HEMOGLOBIN 11.9 g/dL (14.0-18.0); LYMPHOCYTES # (AUTO) 0.8 K/uL (1.0-5.5); LYMPHOCYTES % (AUTO) 5.4 % (20.5-51.5); MEAN CORPUSCULAR HEMOGLOBIN 28 pg (27-31); MEAN CORPUSCULAR HGB CONC 33 % (32-36); MEAN CORPUSCULAR VOLUME 84 fL (79.0-98.0); MONOCYTES # (AUTO) 0.8 K/uL (0.0-1.0); MONOCYTES % (AUTO) 5.3 % (1.7-9.3); NEUTROPHILS # (AUTO) 12.7 K/uL (1.8-7.7); NEUTROPHILS % (AUTO) 87.7 % (40.0-70.0); PLATELET COUNT (AUTO) 136 K/uL (130-430); RED BLOOD CELL COUNT(AUTO) 4.35 MIL/uL (4.2-6.2); RED CELL DISTRIBUTION WIDTH 14.8 % (9.0-15.0); WHITE BLOOD COUNT (AUTO) 14.4 K/uL (4.8-10.8)
[2021-11-14] MEDS: PROPOFOL DRIP 100 ML IV PRN ×3 (07:37→18:28)
[2021-11-14 08:02] LABS: CALCIUM 8.5 mg/dL (8.4-11.0); CREATININE 1.9 mg/dL (0.55-1.30); POTASSIUM 4.3 mmol/L (3.5-5.1)
[2021-11-14] MEDS: CHOLECALCIFEROL (VITAMIN D3) 5,000 UNIT TABLET PO SCH (09:13)
[2021-11-14] MEDS: ASCORBIC ACID 500 MG TABLET PO SCH ×2 (09:13→21:46)
[2021-11-14] MEDS: DEXAMETHASONE SOD PHOSPHATE 4 MG/ML VIAL IVP SCH (09:14)
[2021-11-14] MEDS: FAMOTIDINE PF 20 MG/2 ML VIAL IVP SCH ×2 (09:14→21:46)
[2021-11-14] MEDS: ENOXAPARIN SODIUM 40 MG/0.4 ML SYRINGE SUBCUT SCH (09:17)
[2021-11-14] MEDS: DOXYCYCLINE HYCLATE 100 MG in D5W 100 ML IV SCH ×2 (09:22→21:45)
[2021-11-14] MEDS ORDERED: KCL 40 mEq in 100 mL (PREMIX) 100 ML IV ONE (09:30)
[2021-11-14] MEDS ORDERED: MAGNESIUM SULFATE 50 ML IV ONE (09:30)
--- NOTE | 2021-11-14 10:00 | NUR ---
Patient vent fio2 down to 65%, patient bp and hr stable, given all am meds, held tube feeding due to 400 ml/residuals,
[2021-11-14] MEDS: MORPHINE SULFATE IN 0.9 % NACL 100 ML IV PRN (11:07)
[2021-11-14] MEDS: MIDAZOLAM IN NACL,ISO-OSMOT/PF 100 ML IV PRN (11:13)
--- NOTE | 2021-11-14 15:00 | NUR ---
patient only has 50 ml of urine from his sena catheter, check sena it has some sediments, tried irrigating but with no success, will try to re insert another sena catheter.
--- NOTE | 2021-11-14 17:00 | NUR ---
Unable to find sena catheter the hospital has no supply, removed patient sena catheter, and will re insert a soos supply comes, skin care given.
--- NOTE | 2021-11-14 17:30 | NUR ---
WOUND EVALUATION: Late note for 11/14/2021 at 1730 secondary to patient care. Wound Consult received from Dr. Kitchen. Thank you, Dr. Kitchen, for the consult. Patient received in an [place] Care Bed with a low air-loss mattress, intubated, sedated. Patient is unable to turn in bed independently. Kali Score is a 10. Past Medical History: Obesity, Hx COVID-19 positive 2 weeks ago. Recent Labs: WBC 14.4, RBC 4.35, hemoglobin 11.9, hematocrit 36.3, BUN 77, creatinine 1.90, GFR 41, glucose 128, AST 81, ALT 92, C-reactive protein less than 0.2, serum total protein 6.1, albumin 2.8, PTT 24.7, D-dimer 3100. Microbiology: Blood culture results x2 negative. MRSA screen results negative. Urine culture results negative. Endotracheal sputum culture results negative. Intrinsic factors that delay wound healing: COVID-19, Hyperglycemia, Hypoalbuminemia. Extrinsic factors that delay wound healing: Immobility. Wound Assessment: 1. Anterior Face and Nose, central to left lateral aspect: Vertical linear area of red discoloration with a small black scab. No odor, no drainage. Site measures 17.5 cm x 3.0 cm. Recommend: [place] site with Betadine. Allow to air dry. If any portion of site that is covered by a trach tube olmos, cover that site with a foam dressing for protection. 2. Intergluteal Cleft: Intertrigo with IAD and MASD. Site has small non-intact area of skin with 100% red tissue. No odor, scant sanguineous drainage. Periwound intact. Site measures 4.0 cm x 0.5 cm. Recommend: Cleanse site with normal saline. Apply Calmoseptine cream to site and sahil-wound. Cover with Sacral foam dressing (push dressing into cleft area with fingers, then folded dressing over each buttock. Perform wound care daily, and as needed for dressing soiling or dislodgement. Also recommend: Reposition patient every 2 hours with pillow support and off-load pressure areas with pillows for pressure re-distribution. Offload, elevate and float bilateral heels with pillows. Perform skin care and monitor skin integrity Q shift. Use moisture barrier cream on buttocks and other moisture susceptible areas QID and as needed for soiling. Place patient on a low air-loss mattress.
--- NOTE | 2021-11-14 18:15 | NUR ---
All nursing care and issues all have been addressed, i will endorse care to buckle wire inserter nurse.
[2021-11-15] VITALS (30 sets, daily range): BP systolic 13–167
[2021-11-15] MEDS: PIPERACILLIN/TAZO 4.5GM/DEX-IS 100 ML IV SCH ×3 (06:16→21:13)
[2021-11-15 07:17] LABS: BASOPHILS % (AUTO) 0.3 % (0.0-2.0); EOSINOPHILS # (AUTO) 0.1 K/uL (0.0-0.4); EOSINOPHILS % (AUTO) 0.9 % (0.0-4.0); HEMATOCRIT 37.7 % (36-54); HEMOGLOBIN 12.2 g/dL (14.0-18.0); LYMPHOCYTES # (AUTO) 1.1 K/uL (1.0-5.5); LYMPHOCYTES % (AUTO) 9.3 % (20.5-51.5); MEAN CORPUSCULAR HEMOGLOBIN 27 pg (27-31); MEAN CORPUSCULAR HGB CONC 33 % (32-36); MEAN CORPUSCULAR VOLUME 84 fL (79.0-98.0); MONOCYTES # (AUTO) 1.1 K/uL (0.0-1.0); MONOCYTES % (AUTO) 9.2 % (1.7-9.3); NEUTROPHILS # (AUTO) 9.4 K/uL (1.8-7.7); NEUTROPHILS % (AUTO) 80.3 % (40.0-70.0); PLATELET COUNT (AUTO) 157 K/uL (130-430); RED BLOOD CELL COUNT(AUTO) 4.49 MIL/uL (4.2-6.2); RED CELL DISTRIBUTION WIDTH 15.1 % (9.0-15.0); WHITE BLOOD COUNT (AUTO) 11.7 K/uL (4.8-10.8)
[2021-11-15 08:11] LABS: CALCIUM 8.5 mg/dL (8.4-11.0); CREATININE 2.38 mg/dL (0.55-1.30); POTASSIUM 3.9 mmol/L (3.5-5.1)
[2021-11-15 09:07] LABS: C-REACTIVE PROTEIN QUANT 0.6 mg/dL (0-0.5)
[2021-11-15] MEDS: DEXAMETHASONE SOD PHOSPHATE 4 MG/ML VIAL IVP SCH (09:53)
[2021-11-15] MEDS: CHOLECALCIFEROL (VITAMIN D3) 5,000 UNIT TABLET PO SCH (09:54)
[2021-11-15] MEDS: ENOXAPARIN SODIUM 40 MG/0.4 ML SYRINGE SUBCUT SCH (09:54)
[2021-11-15] MEDS: NACL 0.9% 1,000 ML IV SCH ×2 (09:54→19:15)
[2021-11-15] MEDS: ASCORBIC ACID 500 MG TABLET PO SCH ×2 (09:54→20:40)
[2021-11-15] MEDS: FAMOTIDINE PF 20 MG/2 ML VIAL IVP SCH ×2 (09:54→20:40)
[2021-11-15] MEDS: DOXYCYCLINE HYCLATE 100 MG in D5W 100 ML IV SCH ×2 (10:16→20:40)
[2021-11-15] MEDS: MORPHINE SULFATE IN 0.9 % NACL 100 ML IV PRN (12:27)
[2021-11-15] MEDS: MIDAZOLAM IN NACL,ISO-OSMOT/PF 100 ML IV PRN (12:28)
[2021-11-15] MEDS: PROPOFOL DRIP 100 ML IV PRN ×3 (13:22→22:23)
--- NOTE | 2021-11-15 16:59 | NUR ---
Nutrition F/U Admitting Diagnosis SOB Medical History Comment: COVID-19, Hypoxic Respiratory Failure, Obesity, unvaccinated status per MD notes. SARS-CoV-2 Ag (Rapid) 11/03 Positive Subjective Information: RD bedside visit deferred d/t airborne isolation precautions a/w COVID. RD spoke w/ pt's primary RN outside of pt's room. He stated that pt's TF was re-started this morning at 1000. GRV was checked at time of RD visit around 1600 -- 100 ml GRV noted out of 180 ml infused -- pt is likely not tolerating TF. RN stated he would hold the feedings for 2 hours and check GRV again later. Per EMR review, reglan was provided, however, is no longer part of med list; TF Rate: 30 ml 11/14; GRV: 450 ml 11/15; TF Intakes: 120 ml 11/15; abd is soft and non-distended w/ hypoactive bowel sounds; last BM x1 11/10; Kali scale: 10 w/ wound noted to anterior nose. Pt is not yet meeting nutritional needs. Current Diet Order/Nutrition Support: Vital AF 1.2 at 60 ml/hr, Tacos BID, Prosource TID, Free Water Flush: 150 ml Q6h via OGT x2 days Pertinent Medications: propofol at 28.576 ml/hr (754 kcal/day), piperacillin/tazobactam IV, decadron, pepcid, morphine Pertinent Labs: WBC 11.7 H, BUN 94 H, CRE 2.38 H, BG 115H, CRP 0.6 H Height (Feet) 5 feet Height (Inches) 11.00 inches Weight (Pounds) 300 pounds -- stable since 11/05 Weight (Calculated Kilograms) 136.508989 kilograms Patient Weight 136.078 kg Body Mass Index 41.84 kg/m2 %IBW 174 [place]/Adjusted Body Weight 172#/ 78kg; Adj IBW Obesity: 204#/ 93kg Recent Weight Change Unknown Weight Status Morbidly Obese NEW Estimated Energy Expenditure (kcals/day) 2545 (PSU d/t critical illness, intubated; Ve: 14.7; Tmax: 36.6'C) Estimated Protein Required (g/day) 117-156 (1.5-2 gm/kg IBW for acute illness/obesity) Estimated Fluid Required (l/day) 2.3-2.7 (1ml/calorie for maintenance) Problem/Etiology/Signs/Symptoms Altered nutrition related labs r/t medication interaction AEB elevated BG, on steroid therapy. *seemingly improving Suboptimal EN support R/T metabolic demands AEB current TF prescription meets 81% of estimated caloric needs and 50% of lower end of estimated protein needs. *ongoing Inadequate EN intake r/t EN infusion rate AEB current EN order provides <75% of calorie needs. (*new) Expected Outcomes/Goals - Monitor tolerance to EN support w/ goal of pt meeting >80% of estimated nutritional needs, labs trending WNL, normal GI function, skin integrity/wt maintenance Dietitian Recommendations * Recommend Vital AF 1.2 at 50 ml/hr (new goal rate), Tacos BID, Prosource TID, Free Water Flush: 150 ml Q6h via OGT Provides (w/ supplements and current propofol infusion rate): 2554 kcal/day, 140 gm protein/day, and 1200 ml free water/day Meets: 100% of estimated caloric needs and 90% of upper end of estimated protein needs * Consider prokinetic agent to aid w/ gut motility Follow Up High Risk: F/U in 2-3 days
--- NOTE | 2021-11-15 17:09 | NUR ---
Dietitian Recommendations * Recommend Vital AF 1.2 at 50 ml/hr (new goal rate), Tacos BID, Prosource TID, Free Water Flush: 150 ml Q6h via OGT Provides (w/ supplements and current propofol infusion rate): 2554 kcal/day, 140 gm protein/day, and 1200 ml free water/day Meets: 100% of estimated caloric needs and 90% of upper end of estimated protein needs * Consider prokinetic agent to aid w/ gut motility LP, RD Please refer to Nutrition F/U for details.
[2021-11-15] MEDS ORDERED: MENTHOL/ZINC OXIDE 113 GM OINT. TP PRN (19:00)
--- NOTE | 2021-11-15 19:15 | NUR ---
change of shift.pt.presents isolation status;droplet;covid19+status.pt.presents ett/ogt tube.ett;#8 lip-line;26cm.vent settings;tv;550,fio2:%:50%,a/c;26/p:10.02-sat%=99%.pt.presents picc line inatct. location:rt.bicept intact.iv fluids;ns,drips;diprivan;conc;34.9 mcq/kg/min,rate;28ml/hr,ms;conc;10mg/ml rate:10ml/hr.versed;conc;5mg/ml. rate;5ml/hr.per protocol;diprivan nsg note pt's loc. per flacc pain mgx pt.absent facial grimaces/body posturing.ogt tube feed;vital;1.2 hold 2/t elevated residuals. to assess.lindsey light w/in access of the pt.
--- NOTE | 2021-11-15 20:00 | NUR ---
pt.assessed.v/s assessed values wnl.02-sat%=100%.ett/ogt intact.i have attended to the oral,ett/ogt care/suction.per.flacc pain mgx pt.absent facial grimaces/body posturing.pt.assessed for cleanliness pt.repositioned.call light placed w/in access of the pt.
--- NOTE | 2021-11-15 21:00 | NUR ---
2100p medications administered via ogt.ogt residuals assessed>100ml.to hold og-t feed.feed residuals to re-assess.o2-sat%= 100%.call light w/in access of the pt.
--- NOTE | 2021-11-15 22:00 | NUR ---
pt.assessed.v/s assessed values wnl.o2-sat%=100%.ett/ogt intact.i have attended to ogt/ett care/suction.picc line intact iv fluids/drips;diprivan:note pt's loc.ms,versed infusing.note loc.per flacc pain mgx pt.absent facial grimaces/body posturing. pt.assessed for cleanliness.pt.repositioned.call light placed w/in access of the pt.
[2021-11-16] VITALS (29 sets, daily range): BP systolic 100–157
--- NOTE | 2021-11-16 | NUR ---
pt.assessed.v/s assessed values wnl.o2-sat%=98%.ett/ogt intact i have attended to the oral,ett/ogt care/suction.picc line intact iv fluids/drips;diprivan:note pt's loc,ms,versed infusing.per flacc pain mgx pt.absent facial grimaces/body posturing. pt.assessed for cleanliness pt.repositioned.call light placed w/in access of the pt.
--- NOTE | 2021-11-16 02:00 | NUR ---
pt.assessed.v/s assessed values wnl.o2-sat%=98%.ett/ogt intact i have attended to the oral/ett care/suction. per flacc pain mgx pt.absent facial grimaces/body posturing.pt.assessed for cleanliness.pt.repositioned.picc line intact iv fluids/drips;ms jon,versed infusing.call light placed w/in access of the pt.
[2021-11-16] MEDS: PROPOFOL DRIP 100 ML IV PRN ×6 (02:15→19:27)
--- NOTE | 2021-11-16 04:00 | NUR ---
pt.assessed.v/s assessed values wnl.o2-sat%=98%.fio2%decreased:40%.per .picc line intact iv fluids/drips: ms jon,versed infusing.per flacc pain mgx pt.absent facial grimaces/body posturing.pt.assessed for cleanliness. pt.repositioned.call light placed w/in access of the pt.
[2021-11-16] MEDS: NACL 0.9% 1,000 ML IV SCH ×2 (05:53→19:09)
[2021-11-16] MEDS: PIPERACILLIN/TAZO 4.5GM/DEX-IS 100 ML IV SCH ×3 (05:53→22:30)
[2021-11-16] MEDS: MIDAZOLAM IN NACL,ISO-OSMOT/PF 100 ML IV PRN (06:05)
[2021-11-16] MEDS: MORPHINE SULFATE IN 0.9 % NACL 100 ML IV PRN (06:07)
--- NOTE | 2021-11-16 06:30 | NUR ---
pt.assessed.v/s assessed.02-sat%=98%.oral,ett/ogt care suction.attended to.pt.repositioned.iv fluids,drips infusing.diprivan drip.note loc.call light plaeced w/in access of the pt.
[2021-11-16 07:36] LABS: BASOPHILS # (AUTO) 0.2 K/uL (0.0-0.2); BASOPHILS % (AUTO) 1.6 % (0.0-2.0); EOSINOPHILS # (AUTO) 0.2 K/uL (0.0-0.4); EOSINOPHILS % (AUTO) 2.2 % (0.0-4.0); HEMATOCRIT 36.5 % (36-54); HEMOGLOBIN 12.7 g/dL (14.0-18.0); LYMPHOCYTES # (AUTO) 0.8 K/uL (1.0-5.5); MEAN CORPUSCULAR HEMOGLOBIN 29 pg (27-31); MEAN CORPUSCULAR HGB CONC 35 % (32-36); MEAN CORPUSCULAR VOLUME 83 fL (79.0-98.0); MONOCYTES # (AUTO) 0.9 K/uL (0.0-1.0); MONOCYTES % (AUTO) 8.8 % (1.7-9.3); NEUTROPHILS # (AUTO) 8.3 K/uL (1.8-7.7); NEUTROPHILS % (AUTO) 79.4 % (40.0-70.0); PLATELET COUNT (AUTO) 260 K/uL (130-430); RED BLOOD CELL COUNT(AUTO) 4.42 MIL/uL (4.2-6.2); RED CELL DISTRIBUTION WIDTH 15.4 % (9.0-15.0); WHITE BLOOD COUNT (AUTO) 10.5 K/uL (4.8-10.8)
--- NOTE | 2021-11-16 07:48 | NUR ---
rt notes 0748 titrated peep to 8. will continue to monitor pt.
[2021-11-16 08:12] LABS: CALCIUM 8.9 mg/dL (8.4-11.0); CREATININE 1.95 mg/dL (0.55-1.30); POTASSIUM 3.7 mmol/L (3.5-5.1)
[2021-11-16] MEDS ORDERED: MILK OF MAGNESIA 30 ML UDC PO PRN (08:45)
[2021-11-16] MEDS ORDERED: DOCUSATE SODIUM 100 MG/10 ML UDC PO PRN (08:45)
[2021-11-16] MEDS: DOXYCYCLINE HYCLATE 100 MG in D5W 100 ML IV SCH (09:21)
[2021-11-16] MEDS: ENOXAPARIN SODIUM 40 MG/0.4 ML SYRINGE SUBCUT SCH (10:15)
[2021-11-16] MEDS: FAMOTIDINE PF 20 MG/2 ML VIAL IVP SCH (10:16)
[2021-11-16] MEDS: DEXAMETHASONE SOD PHOSPHATE 4 MG/ML VIAL IVP SCH (10:16)
[2021-11-16] MEDS: CHOLECALCIFEROL (VITAMIN D3) 5,000 UNIT TABLET PO SCH (10:17)
--- NOTE | 2021-11-16 10:34 | NUR ---
Nutrition Note RD received Nutrition Consult for wounds 11/15/21 939. Pt was seen for Nutrition F/U yesterday, 11/15. Please refer to note for details. RD to continue to follow as per nutrition care standards.
[2021-11-16] MEDS: ASCORBIC ACID 500 MG TABLET PO SCH (11:58)
--- NOTE | 2021-11-16 17:37 | NUR ---
End of Shift Summary: Slowly weaning down on sedation: Versed now at 4mg/hr, Morphine at 4mg/hr. Pt tolerating PEEP of 8 with FiO2 at 45%. He desats slightly on his L side. Suctionig small amounts of brown, blood-tinged, thick sputum from ETT. 18Fr [place] Catheter placed and draining yellow urine with scant sediment. No BM x 5 days. Started Milk of Magnesia PRN. Attempted to resume TF, but pt had 175 residual, so now on hold again. Will recheck residual at 1800. Pt's brother called and was given update on pt's status.
--- NOTE | 2021-11-16 18:38 | NUR ---
Pt's residual 225ml. Paged Dr. Kitchen to hold TF and possibly get KUB to check for ileus.
--- NOTE | 2021-11-16 21:00 | NUR ---
PATIENT WAS ACCEPTED AND ASSESS DONE , PATIENT IS TESTED COVID19 , ON VENT AND DRIP TO KEEP SEDATED AND STABLE HAS AN PEREZ WITH LARGE AMOUNT OF HARESH URINE CLEAR , NO BM WAS NOTICE HAS AN NGT NO TUBE FEEDING AT THIS TIME DUE TO THE LARGE RESIDUAL , PATIENT IS OBESITY AND ON AN SPECIAL BED CAN THAT CAN TURN ,PATIENT WILL RESPOND TO DEEP PAIN, STABLE TRIED TO OPEN HIS EYES SKIN VERY WARM HAS AN TEMP 99.4 ON MEDICATION STABLE
[2021-11-17] VITALS (26 sets, daily range): BP systolic 102–162
--- NOTE | 2021-11-17 | NUR ---
REMOVED 112 ML RESIDUAL TUBE FEEDING HOLD MAY TRY IN THE AM STABLE NOTICE THE PATIENT HAS DESAT TO 88 % SUCTION AND OBTAIN THICK [place] SECRETION WITH SOME FLAKE OF BLOOD , STABLE CONDITION IMPROVED STABLE
--- NOTE | 2021-11-17 05:30 | NUR ---
SANDRA HANLEY HAS VERSED CARROLL AND MNOSE HODGES ALL PATIENT AND IVF OF NS STABLE WILL CONTINUED WITH PLAN OF CARE
[2021-11-17 06:51] LABS: BASOPHILS % (AUTO) 0.3 % (0.0-2.0); EOSINOPHILS # (AUTO) 0.2 K/uL (0.0-0.4); EOSINOPHILS % (AUTO) 1.9 % (0.0-4.0); HEMATOCRIT 37.7 % (36-54); HEMOGLOBIN 12.3 g/dL (14.0-18.0); LYMPHOCYTES # (AUTO) 0.9 K/uL (1.0-5.5); MEAN CORPUSCULAR HEMOGLOBIN 27 pg (27-31); MEAN CORPUSCULAR HGB CONC 33 % (32-36); MEAN CORPUSCULAR VOLUME 84 fL (79.0-98.0); MONOCYTES % (AUTO) 10.2 % (1.7-9.3); NEUTROPHILS # (AUTO) 7.7 K/uL (1.8-7.7); NEUTROPHILS % (AUTO) 78.6 % (40.0-70.0); PLATELET COUNT (AUTO) 182 K/uL (130-430); RED CELL DISTRIBUTION WIDTH 15.7 % (9.0-15.0); WHITE BLOOD COUNT (AUTO) 9.8 K/uL (4.8-10.8)
[2021-11-17] MEDS: PIPERACILLIN/TAZO 4.5GM/DEX-IS 100 ML IV SCH ×3 (07:00→21:46)
[2021-11-17] MEDS: PROPOFOL DRIP 100 ML IV PRN ×4 (07:16→23:04)
[2021-11-17 07:17] LABS: ALBUMIN 2.6 g/dL (3.4-4.8); CALCIUM 8.6 mg/dL (8.4-11.0); CREATININE 1.53 mg/dL (0.55-1.30); TOTAL BILIRUBIN 0.9 mg/dL (0.0-1.0)
[2021-11-17] MEDS: DOXYCYCLINE HYCLATE 100 MG in D5W 100 ML IV SCH ×3 (09:30→20:10)
[2021-11-17] MEDS: ENOXAPARIN SODIUM 40 MG/0.4 ML SYRINGE SUBCUT SCH (09:42)
[2021-11-17] MEDS: DEXAMETHASONE SOD PHOSPHATE 4 MG/ML VIAL IVP SCH (09:43)
[2021-11-17] MEDS: CHOLECALCIFEROL (VITAMIN D3) 5,000 UNIT TABLET PO SCH (09:48)
[2021-11-17] MEDS: NACL 0.9% 1,000 ML IV SCH ×3 (11:00→20:11)
[2021-11-17] MEDS: ASCORBIC ACID 500 MG TABLET PO SCH ×3 (11:00→20:11)
[2021-11-17] MEDS: FAMOTIDINE PF 20 MG/2 ML VIAL IVP SCH ×2 (11:00→20:11)
[2021-11-17] MEDS: MORPHINE SULFATE IN 0.9 % NACL 100 ML IV PRN (12:07)
[2021-11-17] MEDS: ACETAMINOPHEN 650 MG/20.3 ML UDC GT PRN (14:11)
[2021-11-17] MEDS ORDERED: DEXMEDETOMIDINE HCL 200 MCG in NS 48 ML IV PRN (15:30)
--- NOTE | 2021-11-17 16:41 | NUR ---
rt notes 1641 Increased fio2 to 50%, per ABG results. will monitor pt.
[2021-11-17] MEDS: DEXMEDETOMIDINE HCL 200 MCG in NS 48 ML IV PRN ×2 (17:20→22:09)
[2021-11-17] MEDS: VANCOMYCIN HCL 1,000 MG in NS 250 ML IV SCH (18:10)
[2021-11-17] MEDS: CLOTRIMAZOLE/BETAMETHASONE 45 GM TOPICAL CREAM TP SCH (21:00)
[2021-11-17 21:43] LABS: BILIRUBIN,URINE NEGATIVE (NEGATIVE); BLOOD, URINE NEGATIVE (NEGATIVE); COLOR,URINE YELLOW (YELLOW); GLUCOSE,URINE NEGATIVE (NEGATIVE); KETONES,URINE NEGATIVE (NEGATIVE); LEUKOCYTE ESTERASE ,URINE NEGATIVE (NEGATIVE); NITRITE, URINE NEGATIVE (NEGATIVE); PH,URINE 5.5 (5.0-8.0); PROTEIN URINE TRACE (NEGATIVE); UROBILINOGEN,URINE 0.2 (0.2-1.0)
[2021-11-17 21:48] LABS: CLARITY/URINE HAZY (CLEAR)
[2021-11-17 23:07] LABS: BACTERIA,URINE MODERATE /HPF (None Seen)
[2021-11-17 23:08] LABS: MUCUS,URINE None Seen /LPF (None Seen); URINE AMORPHOUS URATE 1+ /HPF (None Seen)
[2021-11-18] VITALS (28 sets, daily range): BP systolic 103–167
[2021-11-18] MEDS: DEXMEDETOMIDINE HCL 200 MCG in NS 48 ML IV PRN ×6 (00:26→19:59)
[2021-11-18] MEDS: PROPOFOL DRIP 100 ML IV PRN ×6 (02:44→22:52)
[2021-11-18] MEDS: PIPERACILLIN/TAZO 4.5GM/DEX-IS 100 ML IV SCH ×3 (05:56→21:21)
[2021-11-18] MEDS: NACL 0.9% 1,000 ML IV SCH ×3 (05:57→20:10)
[2021-11-18] MEDS: VANCOMYCIN HCL 1,000 MG in NS 250 ML IV SCH ×2 (05:57→18:01)
[2021-11-18] MEDS: MORPHINE SULFATE IN 0.9 % NACL 100 ML IV PRN ×2 (06:00→22:54)
[2021-11-18 06:47] LABS: BASOPHILS # (AUTO) 0.2 K/uL (0.0-0.2); BASOPHILS % (AUTO) 1.2 % (0.0-2.0); EOSINOPHILS # (AUTO) 0.4 K/uL (0.0-0.4); EOSINOPHILS % (AUTO) 3.5 % (0.0-4.0); HEMOGLOBIN 12.6 g/dL (14.0-18.0); LYMPHOCYTES # (AUTO) 1.3 K/uL (1.0-5.5); LYMPHOCYTES % (AUTO) 10.7 % (20.5-51.5); MEAN CORPUSCULAR HEMOGLOBIN 28 pg (27-31); MEAN CORPUSCULAR HGB CONC 32 % (32-36); MEAN CORPUSCULAR VOLUME 85 fL (79.0-98.0); MONOCYTES # (AUTO) 1.2 K/uL (0.0-1.0); MONOCYTES % (AUTO) 9.8 % (1.7-9.3); NEUTROPHILS # (AUTO) 9.2 K/uL (1.8-7.7); NEUTROPHILS % (AUTO) 74.8 % (40.0-70.0); PLATELET COUNT (AUTO) 195 K/uL (130-430); RED BLOOD CELL COUNT(AUTO) 4.57 MIL/uL (4.2-6.2); RED CELL DISTRIBUTION WIDTH 16.1 % (9.0-15.0)
--- NOTE | 2021-11-18 07:01 | NUR ---
ALL CARES DONE, VSS AFEBRILE, REMAINS SEDATED AND TOLERATING VENT SETINGS. 0330 WEANED FI02-40% GOOD OUTPUT
[2021-11-18 07:32] LABS: ALBUMIN 2.6 g/dL (3.4-4.8); CALCIUM 8.8 mg/dL (8.4-11.0); CREATININE 1.27 mg/dL (0.55-1.30); PHOSPHORUS 4.1 mg/dL (2.7-4.5); POTASSIUM 4.3 mmol/L (3.5-5.1)
[2021-11-18 08:14] LABS: WHITE BLOOD COUNT (AUTO) 12.3 K/uL (4.8-10.8)
[2021-11-18] MEDS: CLOTRIMAZOLE/BETAMETHASONE 45 GM TOPICAL CREAM TP SCH ×2 (09:00→21:00)
[2021-11-18] MEDS: ASCORBIC ACID 500 MG TABLET PO SCH ×2 (09:16→21:20)
[2021-11-18] MEDS: DOXYCYCLINE HYCLATE 100 MG in D5W 100 ML IV SCH (09:16)
[2021-11-18] MEDS: FAMOTIDINE PF 20 MG/2 ML VIAL IVP SCH ×2 (09:17→21:20)
[2021-11-18] MEDS: DEXAMETHASONE SOD PHOSPHATE 4 MG/ML VIAL IVP SCH (09:17)
[2021-11-18] MEDS: CHOLECALCIFEROL (VITAMIN D3) 5,000 UNIT TABLET PO SCH (09:17)
[2021-11-18] MEDS: ENOXAPARIN SODIUM 40 MG/0.4 ML SYRINGE SUBCUT SCH (09:22)
[2021-11-18] MEDS: ACETAMINOPHEN 650 MG/20.3 ML UDC GT PRN (12:41)
[2021-11-19] VITALS (30 sets, daily range): BP systolic 105–152
[2021-11-19] MEDS: DEXMEDETOMIDINE HCL 200 MCG in NS 48 ML IV PRN ×2 (00:31→07:33)
[2021-11-19] MEDS: VANCOMYCIN HCL 1,000 MG in NS 250 ML IV SCH (05:49)
[2021-11-19] MEDS: PIPERACILLIN/TAZO 4.5GM/DEX-IS 100 ML IV SCH ×3 (05:49→21:11)
[2021-11-19 07:00] LABS: ALBUMIN 2.5 g/dL (3.4-4.8); CALCIUM 8.8 mg/dL (8.4-11.0); CREATININE 1.1 mg/dL (0.55-1.30); POTASSIUM 4.1 mmol/L (3.5-5.1); TOTAL BILIRUBIN 0.8 mg/dL (0.0-1.0)
[2021-11-19] MEDS: PROPOFOL DRIP 100 ML IV PRN ×5 (07:35→22:56)
[2021-11-19] MEDS: FAMOTIDINE PF 20 MG/2 ML VIAL IVP SCH ×2 (08:29→20:48)
[2021-11-19] MEDS: CHOLECALCIFEROL (VITAMIN D3) 5,000 UNIT TABLET PO SCH (08:29)
[2021-11-19] MEDS: DEXAMETHASONE SOD PHOSPHATE 4 MG/ML VIAL IVP SCH (08:29)
[2021-11-19] MEDS: ASCORBIC ACID 500 MG TABLET PO SCH ×2 (08:30→20:49)
[2021-11-19] MEDS: ENOXAPARIN SODIUM 40 MG/0.4 ML SYRINGE SUBCUT SCH (08:31)
[2021-11-19] MEDS: CLOTRIMAZOLE/BETAMETHASONE 45 GM TOPICAL CREAM TP SCH ×2 (09:00→20:49)
[2021-11-19] MEDS ORDERED: DEXMEDETOMIDINE HCL 400 MCG in NS 96 ML IV PRN (10:54)
--- NOTE | 2021-11-19 11:04 | NUR ---
Nutrition F/U Admitting Diagnosis: SOB Medical History Comment: COVID-19, Hypoxic Respiratory Failure, Obesity, unvaccinated status per MD notes. SARS-CoV-2 Ag (Rapid) 11/03 Positive Subjective Information: Pt remains in ICU, on vent. Pt was seen through glass door/window in ICU. EN observed to be infusing at 20ml/hr, Diprivan at 35mcg/kg/min. RN was occupied, providing care to pt's in another room. Per EMR review, BM 11/19 x1, pt was seen by hydrotechnical specialist on 11/14 and noted: 1. Anterior Face and Nose, central to left lateral aspect: Vertical linear area of red discoloration with a small black scab. 2. Intergluteal Cleft: Intertrigo with IAD and MASD. Kali scale 12, non-pitting bilateral generalized edema and 1+ non-pitting edema to BLE per director of vendor management. EN rate: 35ml (11/19); GRV: 100ml (11/19). Current EN plus propofol is meeting >80% of estimated calorie and protein needs. Current EN infusion rate is adequate. Current Diet Order/Nutrition Support: Vital AF 1.2 at 60 ml/hr, Tacos BID, Prosource TID, Free Water Flush: 150 ml Q6h via OGT x6 days Pertinent Medications: propofol at 28.576 ml/hr (754 kcal/day), piperacillin/tazobactam IV, decadron, colace liquid, zinc, VIT C, VIT D, lovenox. Pertinent Labs: 11/18 Na 151H, K 4.3WNL, BUN 48 H, CRE 1.27 H, BG 148H Height (Feet) 5 feet Height (Inches) 11.00 inches Weight (Pounds) 300 pounds -- stable since 11/05 Weight (Calculated Kilograms) 136.776909 kilograms Patient Weight 136.078 kg Body Mass Index 41.84 kg/m2 %IBW 174 [place]/Adjusted Body Weight 172#/ 78kg; Adj IBW Obesity: 204#/ 93kg Recent Weight Change Unknown Weight Status Morbidly Obese Estimated Energy Expenditure (kcals/day) 2545 (PSU d/t critical illness, intubated; Ve: 14.7; Tmax: 36.6'C) Estimated Protein Required (g/day) 117-156 (1.5-2 gm/kg IBW for acute illness/obesity) Estimated Fluid Required (l/day) 2.3-2.7 (1ml/calorie for maintenance) Problem/Etiology/Signs/Symptoms Altered nutrition related labs r/t medication interaction AEB elevated BG, on steroid therapy. *seemingly improving Suboptimal EN support R/T metabolic demands AEB current TF prescription meets 81% of estimated caloric needs and 50% of lower end of estimated protein needs. *ongoing Inadequate EN intake r/t EN infusion rate AEB current EN order provides <75% of calorie needs. (*new) Expected Outcomes/Goals - Monitor tolerance to EN support w/ goal of pt meeting >80% of estimated nutritional needs, labs trending WNL, normal GI function, skin integrity/wt maintenance Dietitian Recommendations * Recommend Vital AF 1.2 at 50 ml/hr (new goal rate), Tacos BID, Prosource TID, Free Water Flush: 150 ml Q6h via OGT Provides (w/ supplements and current propofol infusion rate): 2534 kcal/day, 140 gm protein/day, and 1200 ml free water/day Meets: 99.5% of estimated caloric needs and 90% of upper end of estimated protein needs Follow Up High Risk: F/U in 2-3 days
[2021-11-19] MEDS: MORPHINE SULFATE IN 0.9 % NACL 100 ML IV PRN ×2 (12:08→22:18)
[2021-11-19] MEDS: NACL 0.9% 1,000 ML IV SCH ×2 (13:15→22:54)
[2021-11-19] MEDS: VANCOMYCIN HCL 750 MG/NS 250 ML IV SCH (19:53)
[2021-11-19] MEDS: DEXMEDETOMIDINE HCL 400 MCG in NS 96 ML IV PRN (23:26)
[2021-11-20] VITALS (30 sets, daily range): BP systolic 107–138
[2021-11-20] MEDS: DEXMEDETOMIDINE HCL 400 MCG in NS 96 ML IV PRN ×4 (02:48→22:50)
[2021-11-20] MEDS: PROPOFOL DRIP 100 ML IV PRN ×3 (04:35→21:44)
[2021-11-20] MEDS: PIPERACILLIN/TAZO 4.5GM/DEX-IS 100 ML IV SCH ×3 (05:54→21:41)
--- NOTE | 2021-11-20 05:59 | NUR ---
ALL CARES DONE, WEANED SEDATION PER TOLERANCE TOLERATING CURRENT VENT SETTINGS. FIO2-40% HAD DESATURATION AROUND MIDNIGHT TO HIGH 80'S VSS, AFEBRILE. NO BM TOLERATES TUBE FEEDING. CONTINUE CARE.
[2021-11-20 06:51] LABS: BASOPHILS # (AUTO) 0.1 K/uL (0.0-0.2); BASOPHILS % (AUTO) 0.6 % (0.0-2.0); EOSINOPHILS # (AUTO) 0.5 K/uL (0.0-0.4); EOSINOPHILS % (AUTO) 5.6 % (0.0-4.0); HEMATOCRIT 37.6 % (36-54); LYMPHOCYTES # (AUTO) 0.7 K/uL (1.0-5.5); LYMPHOCYTES % (AUTO) 7.9 % (20.5-51.5); MEAN CORPUSCULAR HEMOGLOBIN 28 pg (27-31); MEAN CORPUSCULAR HGB CONC 32 % (32-36); MEAN CORPUSCULAR VOLUME 86 fL (79.0-98.0); MONOCYTES # (AUTO) 0.6 K/uL (0.0-1.0); MONOCYTES % (AUTO) 6.7 % (1.7-9.3); NEUTROPHILS # (AUTO) 7.2 K/uL (1.8-7.7); NEUTROPHILS % (AUTO) 79.2 % (40.0-70.0); PLATELET COUNT (AUTO) 163 K/uL (130-430); RED BLOOD CELL COUNT(AUTO) 4.35 MIL/uL (4.2-6.2); RED CELL DISTRIBUTION WIDTH 16.5 % (9.0-15.0); WHITE BLOOD COUNT (AUTO) 9.1 K/uL (4.8-10.8)
[2021-11-20] MEDS: VANCOMYCIN HCL 750 MG/NS 250 ML IV SCH ×2 (08:00→19:39)
[2021-11-20 08:08] LABS: ALBUMIN 2.4 g/dL (3.4-4.8); CALCIUM 8.7 mg/dL (8.4-11.0); CREATININE 1.04 mg/dL (0.55-1.30); PHOSPHORUS 4.2 mg/dL (2.7-4.5); TOTAL BILIRUBIN 0.7 mg/dL (0.0-1.0)
--- NOTE | 2021-11-20 08:55 | NUR ---
RCV'D PT INTUBATED WITH 8.[address] AND SECURED WITH ANCHOR-FAST. VENT CONNECTED TO RED OUTLET.ALARMS AUDIBLE. AMBU BAG AT BEDSIDE. ABG DONE. RESULTS GIVEN TO RN. NEW ORDER GIVEN FROM MD TO RN TO CHANGE PEEP TO 5. PEEP CHANGED TO 5. PT TOLERATING WELL. WILL CONTINUE TO MONITOR.
[2021-11-20] MEDS: CLOTRIMAZOLE/BETAMETHASONE 45 GM TOPICAL CREAM TP SCH ×2 (09:00→21:42)
[2021-11-20] MEDS: DEXAMETHASONE SOD PHOSPHATE 4 MG/ML VIAL IVP SCH (09:00)
[2021-11-20] MEDS ORDERED: NYSTATIN 30 GM TOPICAL CREAM TP SCH (09:00)
[2021-11-20] MEDS: FAMOTIDINE PF 20 MG/2 ML VIAL IVP SCH ×2 (09:00→21:41)
[2021-11-20] MEDS: ENOXAPARIN SODIUM 40 MG/0.4 ML SYRINGE SUBCUT SCH (09:00)
[2021-11-20] MEDS: CHOLECALCIFEROL (VITAMIN D3) 5,000 UNIT TABLET PO SCH (09:00)
[2021-11-20] MEDS: ASCORBIC ACID 500 MG TABLET PO SCH ×2 (09:00→21:41)
[2021-11-20] MEDS: NACL 0.9% 1,000 ML IV SCH ×2 (09:15→19:38)
[2021-11-20] MEDS: ALBUTEROL MDI INHALATION 8 GM INH INH PRN (11:55)
--- NOTE | 2021-11-20 12:50 | NUR ---
0900: PT RECEIVED INTUBATED SEDATED. SEDATION VACATION INITIATED WITH MORPHINE CONTINUING TO INFUSE. HE IS FOLLOWING COMMANDS, BECOMES TACHYPNEIC (28-42 BPM) AND TACHYCARDIAC (99-120 BPM). PT FOLLOWING COMMANDS. ORIENTED PATIENT TO HIS ENVIRONMENT, ABLE TO LOCK ASSEMBLER HIM TO RELAX AND SLOW BREATHING. VITALS DECREASED TO RR 26 AND HR 111. PT NEEDS LOTS OF COACHING TO MAINTAIN vs WITHIN NORMAL VALUES. PT RESEDATED. JAN CLEMENT RN
--- NOTE | 2021-11-20 18:55 | NUR ---
1600 PT FEBRILE THIS AFTERNOON. TYLENOL ADMINISTERED.
[2021-11-20] MEDS: 0.45% NACL 1,000 ML IV SCH (23:44)
[2021-11-21] VITALS (29 sets, daily range): BP systolic 103–160
[2021-11-21] MEDS: DEXMEDETOMIDINE HCL 400 MCG in NS 96 ML IV PRN ×4 (02:35→20:02)
[2021-11-21] MEDS: MORPHINE SULFATE IN 0.9 % NACL 100 ML IV PRN (05:47)
[2021-11-21] MEDS: PIPERACILLIN/TAZO 4.5GM/DEX-IS 100 ML IV SCH ×3 (05:49→22:22)
--- NOTE | 2021-11-21 06:31 | NUR ---
ALL CARES DONE VSS,AFEBRILE, REMAINS SEDATED WITH PROPOFOL 20 MCG, PRECEDEX AT 1 MCG AND MORPINE AT 4 MG., HAD 1 BM CHG BATH DONE GOOD OUTPUT. CONTINUE CARE
--- NOTE | 2021-11-21 06:34 | NUR ---
S/B DR MOISE LAST NIGHT WITH ORDER FOR WEANING TRIAL IN AM SIMV MODE, PS-12, PEEP-5 AND FIO2-35% RT NIGHT STAFF AWARE
[2021-11-21 06:58] LABS: HEMATOCRIT 37.1 % (36-54); MEAN CORPUSCULAR HEMOGLOBIN 28 pg (27-31); MEAN CORPUSCULAR HGB CONC 32 % (32-36); MEAN CORPUSCULAR VOLUME 87 fL (79.0-98.0); PLATELET COUNT (AUTO) 181 K/uL (130-430); RED BLOOD CELL COUNT(AUTO) 4.27 MIL/uL (4.2-6.2); RED CELL DISTRIBUTION WIDTH 16.2 % (9.0-15.0); WHITE BLOOD COUNT (AUTO) 11.6 K/uL (4.8-10.8)
--- NOTE | 2021-11-21 07:15 | NUR ---
OPENING NOTE: REPORT RC'VD FROM OUT GOING RN, ALL CARES ASSUMED. BED LOW AND LOCKED FOR SAFETY. PATIENT IN NO APPARENT DISTRESS OR DISCOMFORT. RESP THERAPIST AT BEDSIDE.
[2021-11-21 07:25] LABS: ALBUMIN 2.4 g/dL (3.4-4.8); CALCIUM 8.6 mg/dL (8.4-11.0); CREATININE 1.16 mg/dL (0.55-1.30); POTASSIUM 3.6 mmol/L (3.5-5.1); TOTAL BILIRUBIN 0.8 mg/dL (0.0-1.0)
--- NOTE | 2021-11-21 08:05 | NUR ---
RCV'D PT INTUBATED WITH 8.[address] AND SECURED WITH ANCHOR-FAST. VENT CONNECTED TO RED OUTLET.ALARMS AUDIBLE. AMBU BAG AT BEDSIDE. GOT AN ORDER TO CHANGE PT'S SETTINGS TO SIMV PER MD MOISE'S ORDERS. SETTINGS CHANGED. PT IS AWAKE AND MILDLY ANXIOUS. ABG DONE. RESULTS GIVEN TO RN. WILL CONTINUE TO MONITOR PATIENT.
[2021-11-21] MEDS: DEXAMETHASONE SOD PHOSPHATE 4 MG/ML VIAL IVP SCH (08:21)
[2021-11-21] MEDS: FAMOTIDINE PF 20 MG/2 ML VIAL IVP SCH ×2 (08:21→21:35)
[2021-11-21] MEDS: VANCOMYCIN HCL 750 MG/NS 250 ML IV SCH ×2 (08:21→20:38)
[2021-11-21] MEDS: 0.45% NACL 1,000 ML IV SCH ×2 (08:21→19:00)
[2021-11-21] MEDS: ASCORBIC ACID 500 MG TABLET PO SCH ×2 (08:22→21:35)
[2021-11-21] MEDS: CLOTRIMAZOLE/BETAMETHASONE 45 GM TOPICAL CREAM TP SCH ×2 (08:22→21:39)
[2021-11-21] MEDS: CHOLECALCIFEROL (VITAMIN D3) 5,000 UNIT TABLET PO SCH (08:22)
[2021-11-21] MEDS: ENOXAPARIN SODIUM 40 MG/0.4 ML SYRINGE SUBCUT SCH (08:23)
--- NOTE | 2021-11-21 09:24 | NUR ---
DR. TAYLOR MAKING ROUNDS, BEDSIDE REPORT GIVEN, NO NEW ORDERS AT THIS TIME.
--- NOTE | 2021-11-21 10:16 | NUR ---
SPOKE TO BROTHER OVER PHONE, UPDATES GIVEN AND ALL QUESTIONS ANSWERED.
[2021-11-21] MEDS: PROPOFOL DRIP 100 ML IV PRN ×3 (11:29→18:49)
--- NOTE | 2021-11-21 12:07 | NUR ---
SPOKE WITH DR. SUMA MD AWARE OF ABG RESULTS, NO NEW ORDERS AT THIS TIME. MD TO COME SEE PATIENT.
--- NOTE | 2021-11-21 13:20 | NUR ---
PT VERY AGITATED. SWITCHED BACK TO AC WITH CHARTED SETTINGS. RN JANNY AND PICC NURSE NURSE MIKI AGREES. WILL CONTINUE TO MONITOR PATIENT.
[2021-11-21 13:43] LABS: BAND % (MANUAL) 5 % (0-6); LYMPHOCYTES % (MANUAL) 7 % (20-46)
[2021-11-21 13:44] LABS: BASOPHILS % (MANUAL) 0 % (0-2); EOSINOPHILS % (MANUAL) 2 % (0-7); MONOCYTES % (MANUAL) 9 % (0-11)
--- NOTE | 2021-11-21 15:30 | NUR ---
PT CALM AND NOT IN DISTRESS. PLACED PT BACK ON SIMV. RN JANNY AWARE. WILL CONTINUE TO MONITOR PATIENT.
--- NOTE | 2021-11-21 16:50 | NUR ---
RN ROUNDS, PATIENT REPOSITIONED, LINENS CHANGED, NEW GOWN APPLIED. BED LOW AND LOCKED FOR SAFETY.
--- NOTE | 2021-11-21 18:51 | NUR ---
CLOSING NOTE: REPORT GIVEN TO INCOMING NOC RN, ALL CARES ENDORSED.
[2021-11-22] VITALS (29 sets, daily range): BP systolic 107–156
[2021-11-22] MEDS: 0.45% NACL 1,000 ML IV SCH ×2 (04:14→17:05)
[2021-11-22] MEDS: PIPERACILLIN/TAZO 4.5GM/DEX-IS 100 ML IV SCH ×3 (05:04→21:57)
[2021-11-22 06:10] LABS: BASOPHILS % (AUTO) 0.2 % (0.0-2.0); EOSINOPHILS # (AUTO) 0.6 K/uL (0.0-0.4); EOSINOPHILS % (AUTO) 5.9 % (0.0-4.0); HEMOGLOBIN 11.6 g/dL (14.0-18.0); LYMPHOCYTES # (AUTO) 0.6 K/uL (1.0-5.5); LYMPHOCYTES % (AUTO) 6.2 % (20.5-51.5); MEAN CORPUSCULAR HEMOGLOBIN 28 pg (27-31); MEAN CORPUSCULAR HGB CONC 32 % (32-36); MEAN CORPUSCULAR VOLUME 86 fL (79.0-98.0); MONOCYTES # (AUTO) 0.6 K/uL (0.0-1.0); MONOCYTES % (AUTO) 6.2 % (1.7-9.3); NEUTROPHILS # (AUTO) 8.5 K/uL (1.8-7.7); NEUTROPHILS % (AUTO) 81.5 % (40.0-70.0); PLATELET COUNT (AUTO) 142 K/uL (130-430); RED BLOOD CELL COUNT(AUTO) 4.18 MIL/uL (4.2-6.2); RED CELL DISTRIBUTION WIDTH 16.1 % (9.0-15.0); WHITE BLOOD COUNT (AUTO) 10.5 K/uL (4.8-10.8)
[2021-11-22 07:01] LABS: ALBUMIN 2.3 g/dL (3.4-4.8); CALCIUM 8.5 mg/dL (8.4-11.0); CREATININE 0.95 mg/dL (0.55-1.30); POTASSIUM 3.8 mmol/L (3.5-5.1); TOTAL BILIRUBIN 0.7 mg/dL (0.0-1.0)
[2021-11-22] MEDS: VANCOMYCIN HCL 750 MG/NS 250 ML IV SCH ×2 (07:48→20:36)
--- NOTE | 2021-11-22 08:55 | NUR ---
RN NOTES ABG RESULTS RELAYED TO DR. MOISE, WITH ORDERS CARRIED OUT.
[2021-11-22] MEDS: CLOTRIMAZOLE/BETAMETHASONE 45 GM TOPICAL CREAM TP SCH ×2 (09:00→21:15)
[2021-11-22] MEDS: CHOLECALCIFEROL (VITAMIN D3) 5,000 UNIT TABLET PO SCH (09:07)
[2021-11-22] MEDS: DEXAMETHASONE SOD PHOSPHATE 4 MG/ML VIAL IVP SCH (09:08)
[2021-11-22] MEDS: FAMOTIDINE PF 20 MG/2 ML VIAL IVP SCH ×2 (09:08→21:15)
[2021-11-22] MEDS: ENOXAPARIN SODIUM 40 MG/0.4 ML SYRINGE SUBCUT SCH (09:09)
[2021-11-22] MEDS: ASCORBIC ACID 500 MG TABLET PO SCH ×2 (09:12→21:15)
[2021-11-22] MEDS: DEXMEDETOMIDINE HCL 400 MCG in NS 96 ML IV PRN ×3 (09:16→17:04)
[2021-11-22] MEDS: PROPOFOL DRIP 100 ML IV PRN ×2 (10:42→17:40)
[2021-11-23] VITALS (30 sets, daily range): BP systolic 109–163
[2021-11-23] MEDS: 0.45% NACL 1,000 ML IV SCH ×3 (00:04→21:33)
[2021-11-23] MEDS: PIPERACILLIN/TAZO 4.5GM/DEX-IS 100 ML IV SCH ×3 (05:30→23:12)
[2021-11-23 07:27] LABS: BASOPHILS % (AUTO) 0.4 % (0.0-2.0); EOSINOPHILS # (AUTO) 0.7 K/uL (0.0-0.4); EOSINOPHILS % (AUTO) 8.6 % (0.0-4.0); HEMATOCRIT 35.9 % (36-54); HEMOGLOBIN 11.8 g/dL (14.0-18.0); LYMPHOCYTES # (AUTO) 0.9 K/uL (1.0-5.5); LYMPHOCYTES % (AUTO) 10.2 % (20.5-51.5); MEAN CORPUSCULAR HEMOGLOBIN 28 pg (27-31); MEAN CORPUSCULAR HGB CONC 33 % (32-36); MEAN CORPUSCULAR VOLUME 85 fL (79.0-98.0); MONOCYTES # (AUTO) 0.5 K/uL (0.0-1.0); MONOCYTES % (AUTO) 5.6 % (1.7-9.3); NEUTROPHILS # (AUTO) 6.4 K/uL (1.8-7.7); NEUTROPHILS % (AUTO) 75.2 % (40.0-70.0); PLATELET COUNT (AUTO) 144 K/uL (130-430); RED BLOOD CELL COUNT(AUTO) 4.23 MIL/uL (4.2-6.2); RED CELL DISTRIBUTION WIDTH 15.7 % (9.0-15.0); WHITE BLOOD COUNT (AUTO) 8.5 K/uL (4.8-10.8)
[2021-11-23 07:52] LABS: CALCIUM 8.5 mg/dL (8.4-11.0); CREATININE 0.83 mg/dL (0.55-1.30); POTASSIUM 3.3 mmol/L (3.5-5.1)
[2021-11-23] MEDS: VANCOMYCIN HCL 750 MG/NS 250 ML IV SCH ×2 (08:52→20:00)
[2021-11-23] MEDS: CLOTRIMAZOLE/BETAMETHASONE 45 GM TOPICAL CREAM TP SCH ×2 (09:02→21:00)
[2021-11-23] MEDS: ASCORBIC ACID 500 MG TABLET PO SCH ×2 (09:03→21:37)
[2021-11-23] MEDS: CHOLECALCIFEROL (VITAMIN D3) 5,000 UNIT TABLET PO SCH (09:03)
[2021-11-23] MEDS: DEXAMETHASONE SOD PHOSPHATE 4 MG/ML VIAL IVP SCH (09:04)
[2021-11-23] MEDS: FAMOTIDINE PF 20 MG/2 ML VIAL IVP SCH ×2 (09:04→21:33)
[2021-11-23] MEDS: ENOXAPARIN SODIUM 40 MG/0.4 ML SYRINGE SUBCUT SCH (09:05)
[2021-11-23] MEDS: DEXMEDETOMIDINE HCL 400 MCG in NS 96 ML IV PRN ×6 (09:36→23:04)
[2021-11-23] MEDS: PROPOFOL DRIP 100 ML IV PRN ×5 (09:39→22:08)
[2021-11-23] MEDS ORDERED: POTASSIUM CHLORIDE 20 MEQ/PKT PACKET PO ONE (11:00)
--- NOTE | 2021-11-23 14:15 | NUR ---
Nutrition F/U Admitting Diagnosis: SOB Medical History Comment: COVID-19, Hypoxic Respiratory Failure, Obesity, unvaccinated status per MD notes. SARS-CoV-2 Ag (Rapid) 1/2 Positive Subjective Information: RD rounded to pt's room -- primary RN reported that pt has been having diarrhea today and plan is to re-insert rectal tube. She reported loose BM x2 today. She also stated that pt is tolerating TF well, but may benefit from banana flakes to help bulk stool. Pt may benefit more from Banatrol BID versus Tacos BID at this time. Per EMR review, TF Rate: 60 ml 11/23' GRV: 240 ml 11/23; TF Intakes: 900 ml 11/23; abd is soft and non-distended w/ active bowel sounds; last BM x2 11/23; Kali scale: 14 -- anterior nose w/ dry scab noted. Current Diet Order/Nutrition Support: Vital AF 1.2 at 60 ml/hr, Tacos BID, Prosource TID, Free Water Flush: 150 ml Q6h via OGT x10 days Pertinent Medications: propofol at 32.659 ml/hr (862 kcal/day), piperacillin/tazobactam IV, decadron, colace liquid, zinc, VIT C, VIT D, lovenox. Pertinent Labs: K 3.3 L, BUN 22 H, CRE 0.83 WNL, BG 142 H Height (Feet) 5 feet Height (Inches) 11.00 inches Weight (Pounds) 300 pounds -- stable since 11/05 Weight (Calculated Kilograms) 136.091347 kilograms Patient Weight 136.078 kg Body Mass Index 41.84 kg/m2 %IBW 174 [place]/Adjusted Body Weight 172#/ 78kg; Adj IBW Obesity: 204#/ 93kg Recent Weight Change Unknown Weight Status Morbidly Obese NEW Estimated Energy Expenditure (kcals/day) 2701 (PSU d/t critical illness, intubated; Ve: 18.1; Tmax: 36.9'C) Estimated Protein Required (g/day) 117-156 (1.5-2 gm/kg IBW for acute illness/obesity) Estimated Fluid Required (l/day) 2.3-2.7 (1ml/calorie for maintenance) Problem/Etiology/Signs/Symptoms Altered nutrition related labs r/t medication interaction AEB elevated BG, on steroid therapy. *seemingly improving Suboptimal EN support R/T metabolic demands AEB current TF prescription meets 81% of estimated caloric needs and 50% of lower end of estimated protein needs. *ongoing Inadequate EN intake r/t EN infusion rate AEB current EN order provides <75% of calorie needs. (*ongoing) Expected Outcomes/Goals - Monitor tolerance to EN support w/ goal of pt meeting >80% of estimated nutritional needs, labs trending WNL, normal GI function, skin integrity/wt maintenance Dietitian Recommendations * Vital AF 1.2 at 50 ml/hr (new goal rate), Prosource TID, Free Water Flush: 150 ml Q6h via OGT Provides (w/ supplements and current propofol infusion rate): 2482 kcal/day, 135 gm protein/day, and 1573 ml free water/day Meets: 92% of estimated caloric needs and 87% of upper end of estimated protein needs Follow Up High Risk: F/U in 2-3 days Addendum: 11/23/21 at [address] CORRECTION: Dietitian Recommendations * Vital AF 1.2 at 50 ml/hr (new goal rate), Prosource TID, Banatrol BID, Free Water Flush: 150 ml Q6h via OGT Provides (w/ supplements and current propofol infusion rate): 2482 kcal/day, 135 gm protein/day, and 1573 ml free water/day Meets: 92% of estimated caloric needs and 87% of upper end of estimated protein needs LP, RD
--- NOTE | 2021-11-23 14:20 | NUR ---
Dietitian Recommendations * Vital AF 1.2 at 50 ml/hr (new goal rate), Prosource TID, Banatrol BID, Free Water Flush: 150 ml Q6h via OGT Provides (w/ supplements and current propofol infusion rate): 2482 kcal/day, 135 gm protein/day, and 1573 ml free water/day Meets: 92% of estimated caloric needs and 87% of upper end of estimated protein needs LP, RD Please refer to Nutrition F/U for details.
--- NOTE | 2021-11-23 19:02 | NUR ---
Flexi seal was placed and is patent and intact.
--- NOTE | 2021-11-23 23:05 | NUR ---
pt brothermorgan, updated on pt vital signs, code word confirmed.
[2021-11-24] VITALS (29 sets, daily range): BP systolic 109–156
[2021-11-24] MEDS: PROPOFOL DRIP 100 ML IV PRN ×10 (01:00→22:44)
[2021-11-24] MEDS: DEXMEDETOMIDINE HCL 400 MCG in NS 96 ML IV PRN ×9 (01:12→23:24)
[2021-11-24] MEDS: 0.45% NACL 1,000 ML IV SCH ×3 (01:54→22:40)
[2021-11-24] MEDS: PIPERACILLIN/TAZO 4.5GM/DEX-IS 100 ML IV SCH ×2 (05:30→14:00)
--- NOTE | 2021-11-24 07:10 | NUR ---
Received report from director distribution, RN and assumed patient care.
--- NOTE | 2021-11-24 08:00 | NUR ---
Checked placement of flexiseal, no complications noted during checking the placement of the flexiseal, no other complications noted during this time. Will reinforce if needed throughout the shift.
--- NOTE | 2021-11-24 08:20 | NUR ---
RT NOTES Pt is noted to be tachypneic with abnormal breathing pattern, not a good candidate for cpap trial at this time. RN at bedside.
[2021-11-24] MEDS: ASCORBIC ACID 500 MG TABLET PO SCH ×2 (08:42→21:55)
[2021-11-24] MEDS: FAMOTIDINE PF 20 MG/2 ML VIAL IVP SCH ×2 (08:43→21:55)
[2021-11-24] MEDS: CHOLECALCIFEROL (VITAMIN D3) 5,000 UNIT TABLET PO SCH (08:43)
[2021-11-24] MEDS: DEXAMETHASONE SOD PHOSPHATE 4 MG/ML VIAL IVP SCH (08:43)
[2021-11-24] MEDS: ENOXAPARIN SODIUM 40 MG/0.4 ML SYRINGE SUBCUT SCH (08:44)
[2021-11-24] MEDS: CLOTRIMAZOLE/BETAMETHASONE 45 GM TOPICAL CREAM TP SCH ×2 (08:44→21:55)
[2021-11-24] MEDS: VANCOMYCIN HCL 750 MG/NS 250 ML IV SCH ×2 (08:45→21:03)
[2021-11-24 08:52] LABS: BASOPHILS % (AUTO) 0.5 % (0.0-2.0); EOSINOPHILS # (AUTO) 0.7 K/uL (0.0-0.4); EOSINOPHILS % (AUTO) 8.8 % (0.0-4.0); HEMATOCRIT 36.5 % (36-54); HEMOGLOBIN 11.7 g/dL (14.0-18.0); LYMPHOCYTES # (AUTO) 0.9 K/uL (1.0-5.5); LYMPHOCYTES % (AUTO) 10.5 % (20.5-51.5); MEAN CORPUSCULAR HEMOGLOBIN 28 pg (27-31); MEAN CORPUSCULAR HGB CONC 32 % (32-36); MEAN CORPUSCULAR VOLUME 86 fL (79.0-98.0); MONOCYTES # (AUTO) 0.6 K/uL (0.0-1.0); MONOCYTES % (AUTO) 6.8 % (1.7-9.3); NEUTROPHILS # (AUTO) 6.2 K/uL (1.8-7.7); NEUTROPHILS % (AUTO) 73.4 % (40.0-70.0); PLATELET COUNT (AUTO) 149 K/uL (130-430); RED BLOOD CELL COUNT(AUTO) 4.26 MIL/uL (4.2-6.2); RED CELL DISTRIBUTION WIDTH 16.5 % (9.0-15.0); WHITE BLOOD COUNT (AUTO) 8.4 K/uL (4.8-10.8)
--- NOTE | 2021-11-24 09:45 | NUR ---
Patient's older brother is at bedside, no new questions noted at the moment, will reinforce if needed throughout the shift.
[2021-11-24 11:37] LABS: CALCIUM 8.7 mg/dL (8.4-11.0); CREATININE 0.9 mg/dL (0.55-1.30); POTASSIUM 3.3 mmol/L (3.5-5.1)
--- NOTE | 2021-11-24 14:00 | NUR ---
Patient's brother is at bedside, patient was waking up with sedation gtt Max on propofol at 50mcg/kg/min, and Precedex 1.5 mcg/kg/hr. Patient does not seem to be pulling on any lines, or going straight towards ET tube. Patient's family was able to calm patient down, and relax the patient and refrain from pulling on lines. No other complications noted at the moment, patient does not seem to be anxious and vital signs are within patient's range. Will reinforce if needed throughout the shift.
[2021-11-24] MEDS: ALBUTEROL MDI INHALATION 8 GM INH INH PRN (16:20)
--- NOTE | 2021-11-24 18:45 | NUR ---
Dr. Soliz is at bedside, is aware patient is opening eyes, and slight following commands, with current sedation gtt. No complications noted at the moment, will reinforce if needed throughout the shift.
--- NOTE | 2021-11-24 21:54 | NUR ---
PAGED DR. TAYLOR [phone] CRITICAL LAB RESULTS SPOKE WITH RICHAR
[2021-11-24] MEDS ORDERED: POTASSIUM CHLORIDE 20 MEQ TAB.PRT.SR PO ONE (22:15)
[2021-11-25] VITALS (31 sets, daily range): BP systolic 98–155
[2021-11-25] MEDS: PROPOFOL DRIP 100 ML IV PRN ×8 (00:48→20:39)
[2021-11-25] MEDS: DEXMEDETOMIDINE HCL 400 MCG in NS 96 ML IV PRN ×7 (02:13→18:09)
[2021-11-25 06:40] LABS: BASOPHILS % (AUTO) 0.3 % (0.0-2.0); EOSINOPHILS # (AUTO) 0.7 K/uL (0.0-0.4); EOSINOPHILS % (AUTO) 7.9 % (0.0-4.0); HEMATOCRIT 35.1 % (36-54); HEMOGLOBIN 11.3 g/dL (14.0-18.0); LYMPHOCYTES # (AUTO) 1.2 K/uL (1.0-5.5); LYMPHOCYTES % (AUTO) 12.7 % (20.5-51.5); MEAN CORPUSCULAR HEMOGLOBIN 27 pg (27-31); MEAN CORPUSCULAR HGB CONC 32 % (32-36); MEAN CORPUSCULAR VOLUME 84 fL (79.0-98.0); MONOCYTES # (AUTO) 0.6 K/uL (0.0-1.0); MONOCYTES % (AUTO) 6.5 % (1.7-9.3); NEUTROPHILS # (AUTO) 6.8 K/uL (1.8-7.7); NEUTROPHILS % (AUTO) 72.6 % (40.0-70.0); PLATELET COUNT (AUTO) 171 K/uL (130-430); RED BLOOD CELL COUNT(AUTO) 4.16 MIL/uL (4.2-6.2); RED CELL DISTRIBUTION WIDTH 16.2 % (9.0-15.0); WHITE BLOOD COUNT (AUTO) 9.3 K/uL (4.8-10.8)
[2021-11-25 07:00] LABS: ALBUMIN 2.1 g/dL (3.4-4.8); CALCIUM 8.8 mg/dL (8.4-11.0); CREATININE 0.82 mg/dL (0.55-1.30); PHOSPHORUS 3.9 mg/dL (2.7-4.5); POTASSIUM 3.2 mmol/L (3.5-5.1); TOTAL BILIRUBIN 0.5 mg/dL (0.0-1.0)
[2021-11-25] MEDS: CHOLECALCIFEROL (VITAMIN D3) 5,000 UNIT TABLET PO SCH (09:11)
[2021-11-25] MEDS: FAMOTIDINE PF 20 MG/2 ML VIAL IVP SCH ×2 (09:11→20:57)
[2021-11-25] MEDS: ENOXAPARIN SODIUM 40 MG/0.4 ML SYRINGE SUBCUT SCH (09:13)
[2021-11-25] MEDS: DEXAMETHASONE SOD PHOSPHATE 4 MG/ML VIAL IVP SCH (09:14)
[2021-11-25] MEDS: CLOTRIMAZOLE/BETAMETHASONE 45 GM TOPICAL CREAM TP SCH ×2 (09:15→20:51)
[2021-11-25] MEDS: VANCOMYCIN HCL 750 MG/NS 250 ML IV SCH (09:27)
[2021-11-25] MEDS: ASCORBIC ACID 500 MG TABLET PO SCH ×2 (11:32→20:57)
[2021-11-25] MEDS: 0.45% NACL 1,000 ML IV SCH ×2 (11:59→23:00)
[2021-11-25] MEDS: PIPERACILLIN/TAZO 4.5GM/DEX-IS 100 ML IV SCH ×2 (13:01→22:00)
[2021-11-25] MEDS ORDERED: POTASSIUM CHLORIDE 20 MEQ/PKT PACKET NG ONE (14:30)
[2021-11-25] MEDS: VANCOMYCIN HCL 1,000 MG in NS 250 ML IV SCH (20:42)
[2021-11-26] VITALS (29 sets, daily range): BP systolic 93–148
[2021-11-26] MEDS: PROPOFOL DRIP 100 ML IV PRN ×5 (02:24→19:14)
[2021-11-26] MEDS: 0.45% NACL 1,000 ML IV SCH ×2 (03:15→17:56)
[2021-11-26] MEDS: PIPERACILLIN/TAZO 4.5GM/DEX-IS 100 ML IV SCH ×3 (06:05→22:00)
[2021-11-26 06:53] LABS: ALBUMIN 2.1 g/dL (3.4-4.8); CALCIUM 8.6 mg/dL (8.4-11.0); CREATININE 0.82 mg/dL (0.55-1.30); POTASSIUM 3.6 mmol/L (3.5-5.1); TOTAL BILIRUBIN 0.7 mg/dL (0.0-1.0)
--- NOTE | 2021-11-26 07:12 | NUR ---
Opening Received report from campus recruiter RN using SBAR format. Pt resting comfortably, no signs of immediate distress. Bed locked in lowest position. All safety checks have been completed.
--- NOTE | 2021-11-26 08:40 | NUR ---
Large gastric residual (230ml) so turned off the tube feeding for now. Will recheck in an hour
[2021-11-26] MEDS: ASCORBIC ACID 500 MG TABLET PO SCH ×2 (09:27→21:29)
[2021-11-26] MEDS: FAMOTIDINE PF 20 MG/2 ML VIAL IVP SCH ×2 (09:27→21:29)
[2021-11-26] MEDS: DEXAMETHASONE SOD PHOSPHATE 4 MG/ML VIAL IVP SCH (09:27)
[2021-11-26] MEDS: CHOLECALCIFEROL (VITAMIN D3) 5,000 UNIT TABLET PO SCH (09:28)
[2021-11-26] MEDS: CLOTRIMAZOLE/BETAMETHASONE 45 GM TOPICAL CREAM TP SCH ×2 (09:29→21:29)
[2021-11-26] MEDS: VANCOMYCIN HCL 1,000 MG in NS 250 ML IV SCH ×2 (09:31→20:22)
[2021-11-26] MEDS: ENOXAPARIN SODIUM 40 MG/0.4 ML SYRINGE SUBCUT SCH (09:39)
--- NOTE | 2021-11-26 10:00 | NUR ---
Resumed tube feeding at a rate of 30ml/hr at this time because residual was 100ml. Will continue to monitor residuals.
--- NOTE | 2021-11-26 11:27 | NUR ---
rt notes 1127 Titrated fio2 to 50% and PS to 10. pt saturating 99%, will continue to monitor pt.
[2021-11-26] MEDS: DEXMEDETOMIDINE HCL 400 MCG in NS 96 ML IV PRN ×5 (11:57→22:17)
[2021-11-26] MEDS: ACETAMINOPHEN 650 MG/20.3 ML UDC GT PRN (12:22)
[2021-11-26] MEDS ORDERED: PIPERACILLIN/TAZOBACTAM 4.5 GM/VIAL (ZOSYN) IV ONE (22:24)
[2021-11-27] VITALS (28 sets, daily range): BP systolic 109–162
[2021-11-27] MEDS ORDERED: PIPERACILLIN/TAZOBACTAM 4.5 GM/VIAL (ZOSYN) IV ONE (00:35)
[2021-11-27] MEDS: 0.45% NACL 1,000 ML IV SCH ×2 (05:47→15:00)
[2021-11-27] MEDS: PIPERACILLIN/TAZO 4.5GM/DEX-IS 100 ML IV SCH (06:09)
[2021-11-27 07:19] LABS: BASOPHILS % (AUTO) 0.3 % (0.0-2.0); EOSINOPHILS # (AUTO) 0.7 K/uL (0.0-0.4); EOSINOPHILS % (AUTO) 10.5 % (0.0-4.0); HEMATOCRIT 32.4 % (36-54); HEMOGLOBIN 10.7 g/dL (14.0-18.0); LYMPHOCYTES # (AUTO) 0.8 K/uL (1.0-5.5); LYMPHOCYTES % (AUTO) 11.4 % (20.5-51.5); MEAN CORPUSCULAR HEMOGLOBIN 28 pg (27-31); MEAN CORPUSCULAR HGB CONC 33 % (32-36); MEAN CORPUSCULAR VOLUME 85 fL (79.0-98.0); MONOCYTES # (AUTO) 0.5 K/uL (0.0-1.0); MONOCYTES % (AUTO) 6.8 % (1.7-9.3); NEUTROPHILS # (AUTO) 4.9 K/uL (1.8-7.7); PLATELET COUNT (AUTO) 162 K/uL (130-430); RED BLOOD CELL COUNT(AUTO) 3.83 MIL/uL (4.2-6.2); RED CELL DISTRIBUTION WIDTH 15.7 % (9.0-15.0); WHITE BLOOD COUNT (AUTO) 6.9 K/uL (4.8-10.8)
[2021-11-27 07:50] LABS: CALCIUM 8.6 mg/dL (8.4-11.0); CREATININE 0.78 mg/dL (0.55-1.30); POTASSIUM 3.8 mmol/L (3.5-5.1)
[2021-11-27] MEDS: DEXMEDETOMIDINE HCL 400 MCG in NS 96 ML IV PRN ×4 (07:56→17:21)
--- NOTE | 2021-11-27 08:50 | NUR ---
RT NOTES Pt appears to follow simple commands, was educated on CPAP trial. Per order, vent to cpap 5 ps 10. No adverse reactions noted. Will monitor pt. Rn notified.
--- NOTE | 2021-11-27 09:09 | NUR ---
pt following commands well, stopped propofol, continue precedex, at 0815 decreased the fio2 to 40% and at 0850, placed pt on cpap 5, psv 10///pt does c/o pain and has nothing but tylenol on board so gave it and paged md arriaga for more meds for pain///mw
[2021-11-27] MEDS: CLOTRIMAZOLE/BETAMETHASONE 45 GM TOPICAL CREAM TP SCH ×2 (09:13→21:33)
[2021-11-27] MEDS: CHOLECALCIFEROL (VITAMIN D3) 5,000 UNIT TABLET PO SCH (09:13)
[2021-11-27] MEDS: FAMOTIDINE PF 20 MG/2 ML VIAL IVP SCH ×2 (09:14→21:33)
[2021-11-27] MEDS: ASCORBIC ACID 500 MG TABLET PO SCH ×2 (09:14→21:33)
[2021-11-27] MEDS: DEXAMETHASONE SOD PHOSPHATE 4 MG/ML VIAL IVP SCH (09:14)
[2021-11-27] MEDS: ENOXAPARIN SODIUM 40 MG/0.4 ML SYRINGE SUBCUT SCH (09:15)
[2021-11-27] MEDS: VANCOMYCIN HCL 1,000 MG in NS 250 ML IV SCH ×2 (09:16→20:00)
--- NOTE | 2021-11-27 09:25 | NUR ---
RT NOTES Pt. cont. to tolerate cpap. NO distress noted.
--- NOTE | 2021-11-27 15:54 | NUR ---
pt still tolerating cpap but got agitated, reapplied precedex, otherwise pt folllows commands appropriately, and still doing well on cpap mode/continue to suction pt and oral care//mw
--- NOTE | 2021-11-27 19:06 | NUR ---
pt still on cpap, tolerated cpap throughout cleaning/resting quietly in bed//mw
[2021-11-27] MEDS ORDERED: MORPHINE 2 MG/ML INJ. SYRINGE IVP PRN (19:30)
[2021-11-28] VITALS (26 sets, daily range): BP systolic 110–153
[2021-11-28] MEDS: 0.45% NACL 1,000 ML IV SCH ×3 (01:00→11:55)
--- NOTE | 2021-11-28 07:05 | NUR ---
received report from endorsing timber girdler RN for continuity of care, patient lying on bed with an IVF of 0.45 Ns @ 100 cc/hr, Diprivan is off and on Precedex @ 1mcg/kg/hr. Tube feeding in place Vital A.F 1.2 @ [address], 450 cc of kaylan urine in color, rectal tube in place 100 cc,bed lock at lowest position, fall and safety precaution in place, will continue to monitor.
--- NOTE | 2021-11-28 07:27 | NUR ---
Dr. Alvarado is at bedside assessing the patient.
[2021-11-28 07:47] LABS: CALCIUM 8.6 mg/dL (8.4-11.0); CREATININE 0.76 mg/dL (0.55-1.30); POTASSIUM 3.1 mmol/L (3.5-5.1); TOTAL BILIRUBIN 0.4 mg/dL (0.0-1.0)
--- NOTE | 2021-11-28 07:50 | NUR ---
RT NOTES Vent to cpap 5 ps 10
--- NOTE | 2021-11-28 07:50 | NUR ---
CPAP, trial started, patient heart rate 91, blood pressure 139/74 oxygen saturation 94 and respiratory rate 30.
[2021-11-28] MEDS: VANCOMYCIN HCL 1,000 MG in NS 250 ML IV SCH ×2 (08:07→20:00)
[2021-11-28] MEDS: DEXMEDETOMIDINE HCL 400 MCG in NS 96 ML IV PRN ×3 (08:15→18:37)
[2021-11-28] MEDS: ASCORBIC ACID 500 MG TABLET PO SCH ×2 (08:17→21:41)
[2021-11-28] MEDS: CHOLECALCIFEROL (VITAMIN D3) 5,000 UNIT TABLET PO SCH (08:19)
[2021-11-28] MEDS: FAMOTIDINE PF 20 MG/2 ML VIAL IVP SCH ×2 (08:20→21:41)
[2021-11-28] MEDS: DEXAMETHASONE SOD PHOSPHATE 4 MG/ML VIAL IVP SCH (08:26)
[2021-11-28] MEDS: ENOXAPARIN SODIUM 40 MG/0.4 ML SYRINGE SUBCUT SCH (08:30)
[2021-11-28] MEDS: CLOTRIMAZOLE/BETAMETHASONE 45 GM TOPICAL CREAM TP SCH ×2 (11:09→21:41)
[2021-11-28] MEDS: PROPOFOL DRIP 100 ML IV PRN ×2 (11:18→16:18)
--- NOTE | 2021-11-28 11:20 | NUR ---
patient is back to SIMV 8 pressure support of 10, 550, Peep 5 and 40% patient heart rate 80, blood pressure 149/84 spo2 91 and respiratory rate 32.
--- NOTE | 2021-11-28 11:20 | NUR ---
RT NOTES Vent back to SIMV 8 due to elevated H.R.
[2021-11-28] MEDS: ALBUTEROL MDI INHALATION 8 GM INH INH PRN (11:25)
[2021-11-28] MEDS ORDERED: POTASSIUM CHLORIDE 20 MEQ/PKT PACKET NG ONE (11:45)
--- NOTE | 2021-11-28 17:38 | NUR ---
Nutrition F/U Admitting Diagnosis: SOB Medical History Comment: COVID-19, Hypoxic Respiratory Failure, Obesity, unvaccinated status per MD notes. SARS-CoV-2 Ag (Rapid) 1 Positive Subjective Information: RD rounded to ICU and spoke w/ pt's primary RN who reported that pt has been tolerating TF well, and that rectal tube bag was recently changed -- pt had 500 ml of stool/tamika output per RN report. He also stated that pt tolerated CPAP trial [id number] today. Per EMR review, TF Rate: 50 ml 11/28; GRV: 80 ml 11/28; TF Intakes: 600 ml 11/28; abd is soft w/ active bowel sounds; Kali scale: 9 -- pt has dry scabs to anterior nose and upper face; bilat generalized and BLE 1+ pitting edema noted. Current TF prescription provides 2051 kcal/day, 135 gm protein/day, and 1573 ml free water/day, which meets 79% of estimated caloric needs and 87% of upper end of estimated protein needs. Pt may benefit from increase in TF rate to better meet nutritional needs and prevent unintentional wt loss during critical state. Current Diet Order/Nutrition Support: Vital AF 1.2 at 50 ml/hr, Prosource TID, Banatrol BID, Free Water Flush: 150 ml Q6h via OGT x4 days Pertinent Medications: propofol at 16.329 ml/hr (431 kcal/day), decadron, colace liquid, zinc, VIT C, VIT D, lovenox. Pertinent Labs: K 3.1 L, BG 141 H Height (Feet) 5 feet Height (Inches) 11.00 inches Weight (Pounds) 300 pounds -- stable since 11/05 Weight (Calculated Kilograms) 136.014781 kilograms Patient Weight 136.078 kg Body Mass Index 41.84 kg/m2 %IBW 174 [place]/Adjusted Body Weight 172#/ 78kg; Adj IBW Obesity: 204#/ 93kg Recent Weight Change Unknown Weight Status Morbidly Obese NEW Estimated Energy Expenditure (kcals/day) 2596 (PSU d/t critical illness, intubated; Ve: 15.8; Tmax: 36.7'C) Estimated Protein Required (g/day) 117-156 (1.5-2 gm/kg IBW for acute illness/obesity) Estimated Fluid Required (l/day) 2.5 (1 ml/kcal/day for maintenance) Problem/Etiology/Signs/Symptoms Altered nutrition related labs r/t medication interaction AEB elevated BG, on steroid therapy. *seemingly improving Suboptimal EN support R/T metabolic demands AEB current TF prescription meets 81% of estimated caloric needs and 50% of lower end of estimated protein needs. *ongoing Inadequate EN intake r/t EN infusion rate AEB current EN order provides <75% of calorie needs. (*ongoing) Expected Outcomes/Goals - Monitor tolerance to EN support w/ goal of pt meeting >80% of estimated nutritional needs, labs trending WNL, normal GI function, skin integrity/wt maintenance Dietitian Recommendations * Vital AF 1.2 at 60 ml/hr (new goal rate), Prosource TID, Banatrol BID, Free Water Flush: 150 ml Q6h via OGT Provides (w/ supplements and current propofol infusion rate): 2339 kcal/day, 153 gm protein/day, and 1768 ml free water/day Meets: 90% of estimated caloric needs and 98% of upper end of estimated protein needs Follow Up High Risk: F/U in 2-3 days
--- NOTE | 2021-11-28 17:44 | NUR ---
Dietitian Recommendations * Vital AF 1.2 at 60 ml/hr (new goal rate), Prosource TID, Banatrol BID, Free Water Flush: 150 ml Q6h via OGT Provides (w/ supplements and current propofol infusion rate): 2339 kcal/day, 153 gm protein/day, and 1768 ml free water/day Meets: 90% of estimated caloric needs and 98% of upper end of estimated protein needs LP, RD Please refer to Nutrition F/U for details.
[2021-11-29] VITALS (27 sets, daily range): BP systolic 111–171
[2021-11-29 06:38] LABS: BASOPHILS # (AUTO) 0.1 K/uL (0.0-0.2); BASOPHILS % (AUTO) 0.9 % (0.0-2.0); EOSINOPHILS # (AUTO) 0.9 K/uL (0.0-0.4); EOSINOPHILS % (AUTO) 12.2 % (0.0-4.0); HEMATOCRIT 31.2 % (36-54); HEMOGLOBIN 10.5 g/dL (14.0-18.0); LYMPHOCYTES # (AUTO) 0.7 K/uL (1.0-5.5); LYMPHOCYTES % (AUTO) 9.2 % (20.5-51.5); MEAN CORPUSCULAR HEMOGLOBIN 28 pg (27-31); MEAN CORPUSCULAR HGB CONC 34 % (32-36); MEAN CORPUSCULAR VOLUME 84 fL (79.0-98.0); MONOCYTES # (AUTO) 0.4 K/uL (0.0-1.0); MONOCYTES % (AUTO) 6.1 % (1.7-9.3); NEUTROPHILS # (AUTO) 5.2 K/uL (1.8-7.7); NEUTROPHILS % (AUTO) 71.6 % (40.0-70.0); PLATELET COUNT (AUTO) 265 K/uL (130-430); RED BLOOD CELL COUNT(AUTO) 3.71 MIL/uL (4.2-6.2); RED CELL DISTRIBUTION WIDTH 16.3 % (9.0-15.0); WHITE BLOOD COUNT (AUTO) 7.3 K/uL (4.8-10.8)
[2021-11-29] MEDS: VANCOMYCIN HCL 1,000 MG in NS 250 ML IV SCH ×2 (08:01→22:18)
[2021-11-29 08:20] LABS: ALBUMIN 2.1 g/dL (3.4-4.8); CALCIUM 8.6 mg/dL (8.4-11.0); CREATININE 0.72 mg/dL (0.55-1.30); TOTAL BILIRUBIN 0.5 mg/dL (0.0-1.0)
[2021-11-29 08:22] LABS: POTASSIUM 2.8 mmol/L (3.5-5.1)
[2021-11-29] MEDS ORDERED: KCL 20 mEq in NS 1000 mL 1,000 ML IV SCH (09:15)
[2021-11-29] MEDS: DEXAMETHASONE SOD PHOSPHATE 4 MG/ML VIAL IVP SCH (10:09)
[2021-11-29] MEDS: CHOLECALCIFEROL (VITAMIN D3) 5,000 UNIT TABLET PO SCH (10:09)
[2021-11-29] MEDS: FAMOTIDINE PF 20 MG/2 ML VIAL IVP SCH ×2 (10:09→22:18)
[2021-11-29] MEDS: ASCORBIC ACID 500 MG TABLET PO SCH ×2 (10:09→22:18)
[2021-11-29] MEDS: ENOXAPARIN SODIUM 40 MG/0.4 ML SYRINGE SUBCUT SCH (10:10)
[2021-11-29] MEDS: CLOTRIMAZOLE/BETAMETHASONE 45 GM TOPICAL CREAM TP SCH ×2 (10:10→22:19)
[2021-11-29] MEDS ORDERED: POTASSIUM CHLORIDE IV ONE (10:30)
[2021-11-29] MEDS ORDERED: D5W IV ONE (10:30)
[2021-11-29] MEDS: 0.45% NACL 1,000 ML IV SCH ×2 (17:00→22:17)
--- NOTE | 2021-11-29 19:30 | NUR ---
Opening note Patient is resting in bed and on a ventilator. Patient is on mild sedation and still wakes to light stimuli. He is able to follow commands when awake.
--- NOTE | 2021-11-29 22:30 | NUR ---
NG Tube Patient's NG tube noticed further out than normal. tube was reinserted and verified with another nurse.
[2021-11-30] VITALS (22 sets, daily range): BP systolic 116–157
[2021-11-30] MEDS: PROPOFOL DRIP 100 ML IV PRN (00:51)
[2021-11-30] MEDS: 0.45% NACL 1,000 ML IV SCH ×2 (03:00→08:00)
[2021-11-30] MEDS: VANCOMYCIN HCL 1,000 MG in NS 250 ML IV SCH ×2 (08:00→20:36)
[2021-11-30] MEDS: ASCORBIC ACID 500 MG TABLET PO SCH ×2 (09:00→21:00)
[2021-11-30] MEDS: ENOXAPARIN SODIUM 40 MG/0.4 ML SYRINGE SUBCUT SCH (09:00)
[2021-11-30] MEDS: FAMOTIDINE PF 20 MG/2 ML VIAL IVP SCH ×2 (09:00→21:00)
[2021-11-30] MEDS: CLOTRIMAZOLE/BETAMETHASONE 45 GM TOPICAL CREAM TP SCH ×2 (09:00→21:00)
[2021-11-30] MEDS: CHOLECALCIFEROL (VITAMIN D3) 5,000 UNIT TABLET PO SCH (09:00)
--- NOTE | 2021-11-30 14:21 | NUR ---
0950 PLACED PT ON T-BAR 40% FOR 30MIN. PER DR. MOISE. EXTUBATED PT @ 1035, PLACED ON 40% COOL AEROSOL. SAT 96%. WILL CONT TO MONITOR. Addendum: 11/30/21 at 1426 by Josie Neely RT Amended: Links added.
--- NOTE | 2021-11-30 16:07 | NUR ---
PT SEEMED TO ASPITATE A BIT WITH ICE CHIPS, MADE PT NPO TIL SEEN BY SWALLOW THERAPY//MW
[2021-12-01] VITALS (18 sets, daily range): BP systolic 124–179
[2021-12-01 07:33] LABS: BASOPHILS % (AUTO) 0.2 % (0.0-2.0); EOSINOPHILS # (AUTO) 0.8 K/uL (0.0-0.4); EOSINOPHILS % (AUTO) 10.6 % (0.0-4.0); HEMATOCRIT 32.4 % (36-54); HEMOGLOBIN 10.8 g/dL (14.0-18.0); LYMPHOCYTES # (AUTO) 0.5 K/uL (1.0-5.5); LYMPHOCYTES % (AUTO) 7.1 % (20.5-51.5); MEAN CORPUSCULAR HEMOGLOBIN 28 pg (27-31); MEAN CORPUSCULAR HGB CONC 33 % (32-36); MEAN CORPUSCULAR VOLUME 83 fL (79.0-98.0); MONOCYTES # (AUTO) 0.5 K/uL (0.0-1.0); NEUTROPHILS # (AUTO) 5.8 K/uL (1.8-7.7); NEUTROPHILS % (AUTO) 75.1 % (40.0-70.0); PLATELET COUNT (AUTO) 258 K/uL (130-430); RED BLOOD CELL COUNT(AUTO) 3.91 MIL/uL (4.2-6.2); RED CELL DISTRIBUTION WIDTH 16.4 % (9.0-15.0); WHITE BLOOD COUNT (AUTO) 7.7 K/uL (4.8-10.8)
[2021-12-01] MEDS: VANCOMYCIN HCL 1,000 MG in NS 250 ML IV SCH ×2 (08:01→20:00)
[2021-12-01] MEDS: ACETAMINOPHEN 650 MG/20.3 ML UDC GT PRN ×5 (08:06→17:13)
[2021-12-01 08:09] LABS: ALBUMIN 2.2 g/dL (3.4-4.8); CALCIUM 8.9 mg/dL (8.4-11.0); CREATININE 0.84 mg/dL (0.55-1.30); PHOSPHORUS 2.2 mg/dL (2.7-4.5); TOTAL BILIRUBIN 0.7 mg/dL (0.0-1.0)
[2021-12-01] MEDS: 0.45% NACL 1,000 ML IV SCH ×2 (08:29→19:00)
[2021-12-01] MEDS: FAMOTIDINE PF 20 MG/2 ML VIAL IVP SCH ×2 (09:17→21:00)
[2021-12-01] MEDS: CHOLECALCIFEROL (VITAMIN D3) 5,000 UNIT TABLET PO SCH (09:17)
[2021-12-01] MEDS: ASCORBIC ACID 500 MG TABLET PO SCH ×2 (09:17→21:00)
[2021-12-01] MEDS: CLOTRIMAZOLE/BETAMETHASONE 45 GM TOPICAL CREAM TP SCH ×2 (09:18→21:00)
[2021-12-01] MEDS: ENOXAPARIN SODIUM 40 MG/0.4 ML SYRINGE SUBCUT SCH (09:19)
[2021-12-01 09:58] LABS: POTASSIUM 2.6 mmol/L (3.5-5.1)
[2021-12-01] MEDS ORDERED: POTASSIUM CHLORIDE 20 MEQ/PKT PACKET PO ONE (10:45)
[2021-12-01] MEDS ORDERED: KCL 40 mEq in 100 mL (PREMIX) 100 ML IV ONE (11:00)
[2021-12-01] MEDS: hydrALAZINE HCL 20 MG/ML VIAL IVP PRN (17:09)
[2021-12-01] MEDS ORDERED: LABETALOL 100 MG/ 20ML VIAL IVP ONE (17:45)
[2021-12-02] VITALS (20 sets, daily range): BP systolic 131–169
[2021-12-02] MEDS: 0.45% NACL 1,000 ML IV SCH ×2 (05:00→07:30)
[2021-12-02] MEDS: CLOTRIMAZOLE/BETAMETHASONE 45 GM TOPICAL CREAM TP SCH ×2 (09:00→21:00)
[2021-12-02] MEDS: FAMOTIDINE PF 20 MG/2 ML VIAL IVP SCH ×2 (09:39→21:21)
[2021-12-02] MEDS: ENOXAPARIN SODIUM 40 MG/0.4 ML SYRINGE SUBCUT SCH (09:41)
--- NOTE | 2021-12-02 15:34 | NUR ---
PT NOTIFIED OF SWALLOW EVAL SPOKE TO RYAN ABOUT SWALLOW EVAL FOR PATIENT
--- NOTE | 2021-12-02 17:11 | NUR ---
ST EVALUATION COMPLETED. ST TX NOT INDICATED AT THIS TIME. RECOMMEND PO DIET OF PUREE AND THIN LIQUID WITH 1:1 ASSISTANCE AND FULL ASPIRATION PRECAUTIONS.
[2021-12-02] MEDS: CHOLECALCIFEROL (VITAMIN D3) 5,000 UNIT TABLET PO SCH (17:35)
[2021-12-02] MEDS: ASCORBIC ACID 500 MG TABLET PO SCH ×2 (17:36→20:38)
[2021-12-03] MEDS: 0.45% NACL 1,000 ML IV SCH ×2 (02:00→11:28)
[2021-12-03 07:17] LABS: BASOPHILS % (AUTO) 0.4 % (0.0-2.0); EOSINOPHILS # (AUTO) 0.8 K/uL (0.0-0.4); EOSINOPHILS % (AUTO) 9.9 % (0.0-4.0); HEMATOCRIT 33.7 % (36-54); LYMPHOCYTES # (AUTO) 0.6 K/uL (1.0-5.5); LYMPHOCYTES % (AUTO) 8.5 % (20.5-51.5); MEAN CORPUSCULAR HEMOGLOBIN 27 pg (27-31); MEAN CORPUSCULAR HGB CONC 33 % (32-36); MEAN CORPUSCULAR VOLUME 84 fL (79.0-98.0); MONOCYTES # (AUTO) 0.5 K/uL (0.0-1.0); MONOCYTES % (AUTO) 6.6 % (1.7-9.3); NEUTROPHILS # (AUTO) 5.7 K/uL (1.8-7.7); NEUTROPHILS % (AUTO) 74.6 % (40.0-70.0); PLATELET COUNT (AUTO) 256 K/uL (130-430); RED BLOOD CELL COUNT(AUTO) 4.02 MIL/uL (4.2-6.2); RED CELL DISTRIBUTION WIDTH 16.3 % (9.0-15.0); WHITE BLOOD COUNT (AUTO) 7.6 K/uL (4.8-10.8)
[2021-12-03 08:06] LABS: ALBUMIN 2.1 g/dL (3.4-4.8); CALCIUM 8.6 mg/dL (8.4-11.0); CREATININE 0.84 mg/dL (0.55-1.30); TOTAL BILIRUBIN 0.6 mg/dL (0.0-1.0)
[2021-12-03] MEDS: ASCORBIC ACID 500 MG TABLET PO SCH ×2 (08:32→23:32)
[2021-12-03] MEDS: FAMOTIDINE PF 20 MG/2 ML VIAL IVP SCH ×2 (08:32→23:32)
[2021-12-03 08:33] LABS: POTASSIUM 2.8 mmol/L (3.5-5.1)
[2021-12-03] MEDS: CHOLECALCIFEROL (VITAMIN D3) 5,000 UNIT TABLET PO SCH (08:33)
[2021-12-03] MEDS: ENOXAPARIN SODIUM 40 MG/0.4 ML SYRINGE SUBCUT SCH (08:34)
[2021-12-03] MEDS: CLOTRIMAZOLE/BETAMETHASONE 45 GM TOPICAL CREAM TP SCH ×2 (09:00→23:52)
[2021-12-03] MEDS ORDERED: POTASSIUM CHLORIDE 20 MEQ TAB.PRT.SR PO ONE (11:00)
[2021-12-03 11:31] VITALS: BP_SYST 135
--- NOTE | 2021-12-03 11:35 | NUR ---
alert, oriented, still awaiting swallow eval. , for now on pureed diet, did not eat but one bite of scrambled eggs, took all pills with apple sauce. pulled face mask out, and threw it on the floor, enlightened him he desats easily without oxygen, appeared to to heed advice. K+ today 2.8, got replete with 80 meq po K now.
[2021-12-03 15:27] VITALS: BP_SYST 141
[2021-12-03] MEDS: methylPREDNISolone SOD SUCC/PF 62.5 MG/ML VIAL IVP SCH ×2 (18:56→23:31)
--- NOTE | 2021-12-03 20:55 | NUR ---
Paged Jt Munoz s/w Shanelle
[2021-12-03 21:22] VITALS: BP_SYST 129
[2021-12-04 02:11] VITALS: BP_SYST 163
[2021-12-04] MEDS: 0.45% NACL 1,000 ML IV SCH ×3 (05:13→17:00)
[2021-12-04] MEDS: methylPREDNISolone SOD SUCC/PF 62.5 MG/ML VIAL IVP SCH ×3 (05:59→22:58)
[2021-12-04 07:53] LABS: BASOPHILS # (AUTO) 0.3 K/uL (0.0-0.2); BASOPHILS % (AUTO) 2.1 % (0.0-2.0); EOSINOPHILS # (AUTO) 0.2 K/uL (0.0-0.4); EOSINOPHILS % (AUTO) 1.3 % (0.0-4.0); HEMATOCRIT 32.3 % (36-54); HEMOGLOBIN 11.2 g/dL (14.0-18.0); LYMPHOCYTES # (AUTO) 1.1 K/uL (1.0-5.5); LYMPHOCYTES % (AUTO) 6.8 % (20.5-51.5); MEAN CORPUSCULAR HEMOGLOBIN 29 pg (27-31); MEAN CORPUSCULAR HGB CONC 35 % (32-36); MEAN CORPUSCULAR VOLUME 83 fL (79.0-98.0); MONOCYTES # (AUTO) 0.5 K/uL (0.0-1.0); MONOCYTES % (AUTO) 2.9 % (1.7-9.3); NEUTROPHILS # (AUTO) 13.5 K/uL (1.8-7.7); NEUTROPHILS % (AUTO) 86.9 % (40.0-70.0); PLATELET COUNT (AUTO) 353 K/uL (130-430); RED BLOOD CELL COUNT(AUTO) 3.89 MIL/uL (4.2-6.2); RED CELL DISTRIBUTION WIDTH 15.9 % (9.0-15.0); WHITE BLOOD COUNT (AUTO) 15.6 K/uL (4.8-10.8)
[2021-12-04 08:00] VITALS: BP_SYST 178
[2021-12-04 08:11] LABS: ALBUMIN 2.3 g/dL (3.4-4.8); CALCIUM 8.6 mg/dL (8.4-11.0); CREATININE 0.81 mg/dL (0.55-1.30); TOTAL BILIRUBIN 0.8 mg/dL (0.0-1.0)
[2021-12-04] MEDS: hydrALAZINE HCL 20 MG/ML VIAL IVP PRN (09:07)
[2021-12-04] MEDS: ASCORBIC ACID 500 MG TABLET PO SCH ×2 (09:07→22:59)
[2021-12-04] MEDS: FAMOTIDINE PF 20 MG/2 ML VIAL IVP SCH ×2 (09:07→22:58)
[2021-12-04] MEDS: CHOLECALCIFEROL (VITAMIN D3) 5,000 UNIT TABLET PO SCH (09:08)
[2021-12-04] MEDS: ENOXAPARIN SODIUM 40 MG/0.4 ML SYRINGE SUBCUT SCH (09:09)
[2021-12-04] MEDS: CLOTRIMAZOLE/BETAMETHASONE 45 GM TOPICAL CREAM TP SCH ×2 (09:13→23:00)
[2021-12-04 11:41] VITALS: BP_SYST 153
[2021-12-04] MEDS: ACETAMINOPHEN 650 MG/20.3 ML UDC GT PRN (12:35)
--- NOTE | 2021-12-04 13:22 | NUR ---
appeared very weak, did not talk much, did not eat much, ( on pureed, feeder, albumin still low). both PT worked with him at bedside, can hardly sit more than 10minutes. temp at noon, 99.9, face all red, sweaty, tylenol liquid given continues to get ivf 1/2NS at 100cc per hour. Rapid test is to get repeated today, last one PCR 11/03 (+). left message to attending concerning his condition today, on his cell.
--- NOTE | 2021-12-04 14:02 | NUR ---
Nutrition F/U Admitting Diagnosis: SOB Medical History Comment: COVID-19, Hypoxic Respiratory Failure, Obesity, unvaccinated status per MD notes. SARS-CoV-2 Ag (Rapid) 11/03 Positive Subjective Information: Per EMR reviewed, pt was extubated 11/30. Per MD noted, pt is progressive improving on pulmonary status. ST swallow evaluation was done 12/02 and recommended oral diet of pureed and thin liquids with 1:1 assistance and full aspiration precautions. Pt is still weak and not able to ambulate much, remain poor po intake. IVF NS in place running at 100 ml/hr. BM x 1 today, Abdomen is soft, non-distended. Skin risk score of 16 noted, with no PI. Current PO intake is not meeting estimated needs and EN was tapered off s/p extubating, may warrant from ONS. Current Diet Order/Nutrition Support: Pureed, thin liquids x 3 days. Pertinent Medications: propofol at 16.329 ml/hr (431 kcal/day), decadron, colace liquid, zinc, VIT C, VIT D, lovenox, solumedrol, Pepcid. Pertinent Labs: (12/04) WBC: 15.6H, H/H: 11.2L/32.3L, BUN: 22H, BG 170 H, Alb: 2.3L Height (Feet) 5 feet Height (Inches) 11.00 inches Weight (Pounds) 300 pounds -- stable since 11/05 Weight (Calculated Kilograms) 136.388946 kilograms Patient Weight 136.078 kg Body Mass Index 41.84 kg/m2 %IBW 174 [place]/Adjusted Body Weight 172#/ 78kg; Adj IBW Obesity: 204#/ 93kg Recent Weight Change Unknown Weight Status Morbidly Obese NEW Estimated Energy Expenditure (kcals/day) 2596 (PSU d/t critical illness, intubated; Ve: 15.8; Tmax: 36.7'C) Estimated Protein Required (g/day) 117-156 (1.5-2 gm/kg IBW for acute illness/obesity) Estimated Fluid Required (l/day) 2.5 (1 ml/kcal/day for maintenance) Problem/Etiology/Signs/Symptoms Altered nutrition related labs r/t medication interaction AEB elevated BG, on steroid therapy. *seemingly improving Inadequate PO intake r/t oxygen desaturation AEB current PO intake <75% of calorie needs. (*ongoing) Expected Outcomes/Goals - Monitor PO intake and tolerance w/ goal of pt meeting >80% of estimated nutritional needs, labs trending WNL, normal GI function, skin integrity/wt maintenance Dietitian Recommendations * Pureed diet, Glucerna 1 can TID w/ meals. (Provide additional of 660 kcal, 30g protein) Follow Up High Risk: F/U in 2-3 days
--- NOTE | 2021-12-04 14:12 | NUR ---
PHYSICAL THERAPY CO-SIGN The Physical Therapy Progress Notes documented by Packing House Laborer have been reviewed. Reviewed/Co-Signed by: Sascha Randhawa Documentation Done by: UMESH GREENE PTA Addendum: 12/04/21 at 1412 by Sascha Randhawa PT Amended: Links added.
[2021-12-04 15:28] VITALS: BP_SYST 147
--- NOTE | 2021-12-04 16:06 | NUR ---
No return phone call, nor any of attending's delinquent tax collection assistant comes to see the patient. Still asleep soundly , arousable, though. per RT, gradually weaned him off oxygen, now on 4liter NC, sat good, 98% Rapid test just completed.
--- NOTE | 2021-12-04 17:17 | NUR ---
1715 wide awake, now starts talking, " i felt so weak, just want to sleep, did not want anything else".
[2021-12-04 20:51] VITALS: BP_SYST 125
[2021-12-05 00:15] VITALS: BP_SYST 128
[2021-12-05] MEDS: 0.45% NACL 1,000 ML IV SCH ×2 (05:34→23:00)
[2021-12-05] MEDS: methylPREDNISolone SOD SUCC/PF 62.5 MG/ML VIAL IVP SCH ×2 (05:35→14:31)
[2021-12-05] MEDS: CLOTRIMAZOLE/BETAMETHASONE 45 GM TOPICAL CREAM TP SCH ×2 (08:40→20:55)
[2021-12-05] MEDS: FAMOTIDINE PF 20 MG/2 ML VIAL IVP SCH ×2 (08:40→20:52)
[2021-12-05 10:11] VITALS: BP_SYST 128
[2021-12-05 11:46] VITALS: BP_SYST 155
[2021-12-05] MEDS ORDERED: DIPHENHYDRAMINE INJ 50 MG/ML VIAL IVP PRN (12:00)
[2021-12-05] MEDS ORDERED: DIPHENHYDRAMINE INJ 50 MG/ML VIAL IVP ONE (13:00)
--- NOTE | 2021-12-05 14:52 | NUR ---
PHYSICAL THERAPY CO-SIGN The Physical Therapy Progress Notes documented by Tile Sorter have been reviewed. Reviewed/Co-Signed by: Sascha Randhawa Documentation Done by: UMESH GREENE PTA Addendum: 12/05/21 at 1453 by Sascha Randhawa PT Amended: Links added.
[2021-12-05 16:20] VITALS: BP_SYST 140
--- NOTE | 2021-12-05 19:31 | NUR ---
0800: PATIENT IS ASLEEP AROUSABLE WITH VERBAL STIMULI, ORIENTED X 3 TO NAME, PERSON, AND PLACE. ABLE TO VERBALIZE NEEDS NO C/O ANY PAIN OR DISCOMFORT NOTED. ABDOMEN SOFT AND NON-DISTENDED, POSITIVE BOWEL SOUND X 4 NO N/V OR DIARRHEA NOTED. SKIN WARM AND DRY, WITH STAGE II DECUB. COCCYX AREA WITH ONGOING TREATMENT, FACIAL WOUND FROM BEING PRONE WHILE INTUBATED IN ICU. RECTAL TUBE WITH YELLOW LIQUID FECAL MATTER. LEFT SIDED WEAKNESS. WILL CONTINUE TO REASSESS PRN. 1900: VS STABLE, NO CHANGE IN LOC. NO ADVERSE REACTION FROM MEDICATION NOTED. ENDORSED PATIENT TO PM SHIFT NURSE.
[2021-12-05 20:00] VITALS: BP_SYST 144
[2021-12-05] MEDS: ASCORBIC ACID 500 MG TABLET PO SCH (20:52)
[2021-12-06] MEDS: methylPREDNISolone SOD SUCC/PF 62.5 MG/ML VIAL IVP SCH ×2 (00:28→06:16)
[2021-12-06 00:55] VITALS: BP_SYST 148
[2021-12-06 08:00] VITALS: BP_SYST 139
[2021-12-06 08:11] LABS: BASOPHILS # (AUTO) 0.1 K/uL (0.0-0.2); BASOPHILS % (AUTO) 0.7 % (0.0-2.0); EOSINOPHILS # (AUTO) 0.1 K/uL (0.0-0.4); HEMATOCRIT 33.3 % (36-54); HEMOGLOBIN 10.9 g/dL (14.0-18.0); LYMPHOCYTES # (AUTO) 0.9 K/uL (1.0-5.5); LYMPHOCYTES % (AUTO) 8.3 % (20.5-51.5); MEAN CORPUSCULAR HEMOGLOBIN 27 pg (27-31); MEAN CORPUSCULAR HGB CONC 33 % (32-36); MEAN CORPUSCULAR VOLUME 84 fL (79.0-98.0); MONOCYTES # (AUTO) 0.4 K/uL (0.0-1.0); MONOCYTES % (AUTO) 3.3 % (1.7-9.3); NEUTROPHILS # (AUTO) 9.7 K/uL (1.8-7.7); NEUTROPHILS % (AUTO) 86.7 % (40.0-70.0); PLATELET COUNT (AUTO) 252 K/uL (130-430); RED BLOOD CELL COUNT(AUTO) 3.98 MIL/uL (4.2-6.2); RED CELL DISTRIBUTION WIDTH 15.9 % (9.0-15.0); WHITE BLOOD COUNT (AUTO) 11.2 K/uL (4.8-10.8)
[2021-12-06 08:16] LABS: ALBUMIN 2.4 g/dL (3.4-4.8); CALCIUM 8.7 mg/dL (8.4-11.0); CREATININE 0.92 mg/dL (0.55-1.30); TOTAL BILIRUBIN 0.4 mg/dL (0.0-1.0)
[2021-12-06] MEDS: ENOXAPARIN SODIUM 40 MG/0.4 ML SYRINGE SUBCUT SCH (08:47)
[2021-12-06] MEDS: ASCORBIC ACID 500 MG TABLET PO SCH ×2 (08:48→21:43)
[2021-12-06] MEDS: CLOTRIMAZOLE/BETAMETHASONE 45 GM TOPICAL CREAM TP SCH ×2 (08:49→21:43)
[2021-12-06] MEDS: FAMOTIDINE PF 20 MG/2 ML VIAL IVP SCH (08:53)
[2021-12-06] MEDS: CHOLECALCIFEROL (VITAMIN D3) 5,000 UNIT TABLET PO SCH ×2 (08:53→09:00)
[2021-12-06 12:05] VITALS: BP_SYST 130
--- NOTE | 2021-12-06 12:42 | NUR ---
PHYSICAL THERAPY CO-SIGN The Physical Therapy Progress Notes documented by Supervisor Parking Lot have been reviewed. Reviewed/Co-Signed by: Sascha Randhawa Documentation Done by: UMESH GREENE PTA Addendum: 12/06/21 at 1243 by Sascha Randhawa PT Amended: Links added.
--- NOTE | 2021-12-06 14:28 | NUR ---
0800: PATIENT IS ASLEEP AROUSABLE WITH VERBAL STIMULI, ORIENTED X 3 TO NAME, PERSON, AND PLACE. RESPIRATION EVEN AND UNLABORED NO S/S OF ANY ACUTE DISTRESS NOTED. ABLE TO VERBALIZE NEEDS, NO C/O ANY PAIN OR DISCOMFORT NOTED. ABDOMEN SOFT AND NON-DISTENDED, POSITIVE BOWEL SOUND X 4 NO N/V, LOOSE YELLOW BOWEL MOVEMENT THRU RECTAL TUBE. SKIN WARM AND DRY WITH STAGE II COCCYX AREA WITH DRESSING INTACT NO BLEEDING OR DISCHARGE NOTED. LEFT SIDED WEAKNESS. WILL CONTINUE TO REASSESS PATIENT PRN.
--- NOTE | 2021-12-06 15:26 | NUR ---
Patient referred to [facility]-Pt does not meet criteria-needs PT only
[2021-12-06 16:25] VITALS: BP_SYST 149
--- NOTE | 2021-12-06 16:59 | NUR ---
Patient was seen for OT evluation, alert and coopertive. Noted severe wekness on left UE. Pt is able to follow simple command and able to participate with simple ADL task using one hand technique. Pt will be doing OT tx, QD 5x./wk. Nursing notified.
[2021-12-06] MEDS: predniSONE 20 MG TABLET PO SCH (17:53)
--- NOTE | 2021-12-06 18:42 | NUR ---
PATIENT REMAINED STABLE, NEW OT EVAL AND TX DONE ORDERED, NO CHANGE IN LOC OR S/S OF ANY DISTRESS NOTED. WILL ENDORSE PATIENT TO PM SHIFT NURSE.
[2021-12-06] MEDS: 0.45% NACL 1,000 ML IV SCH (19:00)
[2021-12-07] MEDS: traMADol HCL HCL 50 MG TABLET (ULTRAM) PO PRN ×2 (00:25→06:37)
[2021-12-07 00:46] VITALS: BP_SYST 141
[2021-12-07 04:00] VITALS: BP_SYST 133
[2021-12-07] MEDS: 0.45% NACL 1,000 ML IV SCH ×2 (05:00→16:08)
[2021-12-07 08:00] VITALS: BP_SYST 142
[2021-12-07] MEDS ORDERED: predniSONE 20 MG TABLET PO SCH (08:00)
[2021-12-07] MEDS: ASCORBIC ACID 500 MG TABLET PO SCH ×2 (08:51→20:30)
[2021-12-07] MEDS: predniSONE 20 MG TABLET PO SCH ×2 (08:51→17:39)
[2021-12-07] MEDS: ENOXAPARIN SODIUM 40 MG/0.4 ML SYRINGE SUBCUT SCH ×2 (08:53→09:00)
[2021-12-07] MEDS: CLOTRIMAZOLE/BETAMETHASONE 45 GM TOPICAL CREAM TP SCH ×2 (09:00→20:33)
[2021-12-07] MEDS: CHOLECALCIFEROL (VITAMIN D3) 5,000 UNIT TABLET PO SCH (09:00)
[2021-12-07 09:48] LABS: CALCIUM 8.5 mg/dL (8.4-11.0); CREATININE 0.88 mg/dL (0.55-1.30); POTASSIUM 3.1 mmol/L (3.5-5.1)
[2021-12-07 12:39] VITALS: BP_SYST 153
[2021-12-07 13:15] LABS: BASOPHILS % (AUTO) 0.3 % (0.0-2.0); EOSINOPHILS # (AUTO) 0.8 K/uL (0.0-0.4); EOSINOPHILS % (AUTO) 7.5 % (0.0-4.0); HEMATOCRIT 33.2 % (36-54); HEMOGLOBIN 10.7 g/dL (14.0-18.0); LYMPHOCYTES # (AUTO) 1.1 K/uL (1.0-5.5); LYMPHOCYTES % (AUTO) 9.5 % (20.5-51.5); MEAN CORPUSCULAR HEMOGLOBIN 27 pg (27-31); MEAN CORPUSCULAR HGB CONC 32 % (32-36); MEAN CORPUSCULAR VOLUME 84 fL (79.0-98.0); MONOCYTES # (AUTO) 0.8 K/uL (0.0-1.0); MONOCYTES % (AUTO) 6.8 % (1.7-9.3); NEUTROPHILS # (AUTO) 8.5 K/uL (1.8-7.7); NEUTROPHILS % (AUTO) 75.9 % (40.0-70.0); PLATELET COUNT (AUTO) 259 K/uL (130-430); RED BLOOD CELL COUNT(AUTO) 3.96 MIL/uL (4.2-6.2); RED CELL DISTRIBUTION WIDTH 16.1 % (9.0-15.0); WHITE BLOOD COUNT (AUTO) 11.1 K/uL (4.8-10.8)
[2021-12-07] MEDS: hydrALAZINE HCL 20 MG/ML VIAL IVP PRN (16:03)
[2021-12-07 16:08] VITALS: BP_SYST 167
--- NOTE | 2021-12-07 19:25 | NUR ---
OPENING NOTES ENDORSED CARE FROM DAY SHIFT. PT IS SEMI FOWLERS WATCHING TV. NO APPARENT DISTRESS NOTED AT THIS TIME. FALL AND SAFETY PRECAUTIONS IN PLACE. CALL LIGHT IS WITHIN REACH, BED IN LOWEST POSITION. PEREZ CATHETER DRAINING TO GRAVITY.
[2021-12-07 20:00] VITALS: BP_SYST 128
[2021-12-08 00:51] VITALS: BP_SYST 140
[2021-12-08] MEDS: 0.45% NACL 1,000 ML IV SCH ×3 (04:53→21:40)
--- NOTE | 2021-12-08 05:27 | NUR ---
Per JOY OPERATOR Noria, at this time, patient was asked if they needed any repositioning or cleaning. Per JOY OPERATOR Noria, patient states they are fine the way they are - no need for any changing. Patient sena emptied.
--- NOTE | 2021-12-08 06:58 | NUR ---
CLOSING NOTES CARE ENDORSED TO DAY SHIFT. PT WAS REPOSITIONED. PT IS RESTING WITH EYES CLOSED. NO APPARENT DISTRESS NOTED AT THIS TIME. FALL AND SAFETY PRECAUTIONS IN PLACE. CALL LIGHT WITHIN REACH WITH BED IN LOWEST POSITION. PEREZ CATHETER AND FLEXISEAL DRAINING TO GRAVITY.
[2021-12-08 08:05] VITALS: BP_SYST 134
[2021-12-08] MEDS ORDERED: IPRATROPIUM/ALBUTEROL SULFATE 3 ML AMPUL.NEB (DUONEB) ONE (08:58)
[2021-12-08] MEDS: ASCORBIC ACID 500 MG TABLET PO SCH ×2 (09:21→21:40)
[2021-12-08] MEDS: CHOLECALCIFEROL (VITAMIN D3) 5,000 UNIT TABLET PO SCH (09:21)
[2021-12-08] MEDS: predniSONE 20 MG TABLET PO SCH ×2 (09:22→18:32)
[2021-12-08] MEDS: ENOXAPARIN SODIUM 40 MG/0.4 ML SYRINGE SUBCUT SCH (09:25)
[2021-12-08] MEDS: CLOTRIMAZOLE/BETAMETHASONE 45 GM TOPICAL CREAM TP SCH ×2 (09:30→21:00)
[2021-12-08 10:44] VITALS: BP_SYST 134
[2021-12-08 11:43] VITALS: BP_SYST 144
[2021-12-08 12:52] LABS: BASOPHILS # (AUTO) 0.1 K/uL (0.0-0.2); EOSINOPHILS % (AUTO) 7.7 % (0.0-4.0); HEMATOCRIT 34.2 % (36-54); HEMOGLOBIN 11.3 g/dL (14.0-18.0); LYMPHOCYTES # (AUTO) 0.8 K/uL (1.0-5.5); LYMPHOCYTES % (AUTO) 6.6 % (20.5-51.5); MEAN CORPUSCULAR HEMOGLOBIN 27 pg (27-31); MEAN CORPUSCULAR HGB CONC 33 % (32-36); MEAN CORPUSCULAR VOLUME 83 fL (79.0-98.0); MONOCYTES # (AUTO) 0.5 K/uL (0.0-1.0); MONOCYTES % (AUTO) 4.2 % (1.7-9.3); NEUTROPHILS # (AUTO) 10.1 K/uL (1.8-7.7); NEUTROPHILS % (AUTO) 80.5 % (40.0-70.0); PLATELET COUNT (AUTO) 188 K/uL (130-430); RED BLOOD CELL COUNT(AUTO) 4.14 MIL/uL (4.2-6.2); RED CELL DISTRIBUTION WIDTH 16.5 % (9.0-15.0); WHITE BLOOD COUNT (AUTO) 12.6 K/uL (4.8-10.8)
[2021-12-08 13:21] LABS: CALCIUM 8.5 mg/dL (8.4-11.0); CREATININE 0.82 mg/dL (0.55-1.30); POTASSIUM 3.3 mmol/L (3.5-5.1)
--- NOTE | 2021-12-08 14:49 | NUR ---
CM: faxed snf referral to [facility] fax # [phone] attjasson Brown. She will forward to nurse reviewer in am, no admitting staff today.
[2021-12-08 17:00] VITALS: BP_SYST 140
[2021-12-08 21:12] VITALS: BP_SYST 143
[2021-12-09 00:32] VITALS: BP_SYST 135
[2021-12-09] MEDS: 0.45% NACL 1,000 ML IV SCH ×2 (06:35→16:02)
[2021-12-09] MEDS: ASCORBIC ACID 500 MG TABLET PO SCH ×2 (08:58→21:01)
[2021-12-09] MEDS: CHOLECALCIFEROL (VITAMIN D3) 5,000 UNIT TABLET PO SCH (09:00)
[2021-12-09] MEDS: ENOXAPARIN SODIUM 40 MG/0.4 ML SYRINGE SUBCUT SCH (09:04)
[2021-12-09] MEDS: predniSONE 20 MG TABLET PO SCH ×2 (09:09→17:56)
[2021-12-09] MEDS: CLOTRIMAZOLE/BETAMETHASONE 45 GM TOPICAL CREAM TP SCH ×2 (09:10→21:06)
[2021-12-09 10:21] LABS: CALCIUM 8.3 mg/dL (8.4-11.0); CREATININE 0.74 mg/dL (0.55-1.30)
[2021-12-09] MEDS ORDERED: POTASSIUM CHLORIDE 20 MEQ/PKT PACKET PO ONE ×2 (10:45→11:15)
[2021-12-09 10:49] LABS: POTASSIUM 2.9 mmol/L (3.5-5.1)
[2021-12-09] MEDS ORDERED: KCL 40 mEq in 100 mL (PREMIX) 100 ML IV ONE (11:15)
[2021-12-09 11:37] VITALS: BP_SYST 150
[2021-12-09 12:00] VITALS: BP_SYST 155
--- NOTE | 2021-12-09 12:10 | NUR ---
PHYSICAL THERAPY CO-SIGN The Physical Therapy Progress Notes documented by Gold Frame Assembler have been reviewed. Reviewed/Co-Signed by: Sascha Randhawa Documentation Done by: ELISSA DIAZ PTA Addendum: 12/09/21 at 1210 by Sascha Randhawa PT Amended: Links added.
[2021-12-09 12:15] LABS: BASOPHILS % (AUTO) 0.3 % (0.0-2.0); EOSINOPHILS # (AUTO) 0.9 K/uL (0.0-0.4); EOSINOPHILS % (AUTO) 7.3 % (0.0-4.0); HEMATOCRIT 35.2 % (36-54); HEMOGLOBIN 11.3 g/dL (14.0-18.0); LYMPHOCYTES # (AUTO) 0.9 K/uL (1.0-5.5); LYMPHOCYTES % (AUTO) 7.5 % (20.5-51.5); MEAN CORPUSCULAR HEMOGLOBIN 27 pg (27-31); MEAN CORPUSCULAR HGB CONC 32 % (32-36); MEAN CORPUSCULAR VOLUME 84 fL (79.0-98.0); MONOCYTES # (AUTO) 0.6 K/uL (0.0-1.0); MONOCYTES % (AUTO) 5.3 % (1.7-9.3); NEUTROPHILS # (AUTO) 9.6 K/uL (1.8-7.7); NEUTROPHILS % (AUTO) 79.6 % (40.0-70.0); PLATELET COUNT (AUTO) 194 K/uL (130-430); RED BLOOD CELL COUNT(AUTO) 4.22 MIL/uL (4.2-6.2); RED CELL DISTRIBUTION WIDTH 16.4 % (9.0-15.0); WHITE BLOOD COUNT (AUTO) 12.1 K/uL (4.8-10.8)
--- NOTE | 2021-12-09 14:16 | NUR ---
Discharge Planning: DCP faxed pt referral to [facility] [phone] DCP to follow up. Addendum: 12/09/21 at 1633 by Gege Sagastume DP [facility] [phone] declined pt. DCP spoke to Avelina at Dr Kitchen's office [phone] she is not aware of facilities in [facility] closer to [facility], Dr Kitchen to call case management.
--- NOTE | 2021-12-09 15:02 | NUR ---
DISCHARGE PLANNING Spoke with pt at bedside & discussed dc planning. Would prefer [facility] if accepted, if not would be agreeable with SNF. States was thinking [place] where his mother lives but now thinking maybe in [place]. Christel is going to discuss with his brother. States that brother Vish is his primary contact & can contact him to discuss dc planning. Earlier today called & spoke with Leslie at [facility] , ph [phone], states does not see him listed under her, does not find him in her system. Can call Customer Service, ph [phone]. I called & spoke with our insurance producer to verify which BX & if had auth.
--- NOTE | 2021-12-09 15:24 | NUR ---
Patient was seen for OT treatment, alert and cooperative. Tolerated tx with rest in between task and breathing exercises. Denies any pain during and after tx. O2Sat= 93-95% with 4Lof O2 via nasal canula. Pt was able to tolerate bed mobility task training. static/ dynamic balance act. in sitting and ROM ex on btoh UE to increase strength. Pt was able to participate with ADL task while in high fowlers position in bed, using one hand ADL technique. Nursing notified about pt's condition.
[2021-12-09 15:31] VITALS: BP_SYST 133
--- NOTE | 2021-12-09 19:41 | NUR ---
Endorsement End of shift report given to night RN for continuation of care. VSs are wnr. No S&S of distress noted. Call light is within reach
[2021-12-09 20:27] VITALS: BP_SYST 142
[2021-12-10 00:24] VITALS: BP_SYST 139
[2021-12-10] MEDS: 0.45% NACL 1,000 ML IV SCH ×2 (02:15→15:54)
[2021-12-10 08:00] VITALS: BP_SYST 162
[2021-12-10] MEDS: ASCORBIC ACID 500 MG TABLET PO SCH ×2 (09:06→20:55)
[2021-12-10] MEDS: CHOLECALCIFEROL (VITAMIN D3) 5,000 UNIT TABLET PO SCH (09:06)
[2021-12-10] MEDS: hydrALAZINE HCL 20 MG/ML VIAL IVP PRN (09:07)
[2021-12-10] MEDS: predniSONE 20 MG TABLET PO SCH ×2 (09:07→18:15)
[2021-12-10] MEDS: ENOXAPARIN SODIUM 40 MG/0.4 ML SYRINGE SUBCUT SCH (09:08)
[2021-12-10] MEDS: CLOTRIMAZOLE/BETAMETHASONE 45 GM TOPICAL CREAM TP SCH ×2 (09:09→21:02)
[2021-12-10 12:17] VITALS: BP_SYST 152
[2021-12-10] MEDS ORDERED: METOPROLOL TARTRATE 25 MG TABLET PO ONE (15:00)
--- NOTE | 2021-12-10 15:25 | NUR ---
Patient was seen for OT treatment. Alert and cooperative. Pt. tolerated tx with rest in between task. Able to to tolerate strengthening exercises to both UE and ADl task while in high fowlers position in bed. O2Sat 92-95% with O2 via nasal canula. BP 127/70. Denies any pain during and after tx. pls see OT tx notes in chart for more detail.
[2021-12-10 16:50] VITALS: BP_SYST 134
--- NOTE | 2021-12-10 20:08 | NUR ---
DR MOISE CALLED AND ORDERED THE FOLLOWING FOR THE PATIENT TITRATE 02 VIA NC TO 3LPM SWALLOW EVALUATION IN THE MORNING PLACE PATIENT ON BIPAP / AT NIGHT TO RESOLVE SLEEP APNEA
[2021-12-11] MEDS: 0.45% NACL 1,000 ML IV SCH ×3 (00:38→22:28)
[2021-12-11 01:00] VITALS: BP_SYST 141
[2021-12-11 01:28] VITALS: BP_SYST 135
--- NOTE | 2021-12-11 06:59 | NUR ---
ENDORSING CONTINUITY OF CARE TO INCOMING MORNING SHIFT. PATIENT IS RESTING WELL WITHOUT ANY SIGNS OF DISTRESS.BED ALARMED ARMED AND POSTIONED PER POLICY
[2021-12-11 07:35] LABS: ALBUMIN 2.8 g/dL (3.4-4.8); CALCIUM 8.6 mg/dL (8.4-11.0); CREATININE 0.76 mg/dL (0.55-1.30); POTASSIUM 3.1 mmol/L (3.5-5.1); TOTAL BILIRUBIN 0.8 mg/dL (0.0-1.0)
--- NOTE | 2021-12-11 07:35 | NUR ---
OPENING NOTE Patient awake, AxO x4 in bed. Denies pain, denies shortness of breath. Oxygen saturation originally 86% until nasal cannula was adjusted, oxygen saturation increased to 92%. Patient states that he did not feel short of breath or dizzy even with the nasal cannula off which is why he didn't notice. Navarrete catheter and flexiseal in place, draining to gravity. IV site is clean, dry, intact and patent. All needs met, safety checks made and call light left within reach.
[2021-12-11 08:00] VITALS: BP_SYST 147
[2021-12-11 08:17] LABS: BASOPHILS % (AUTO) 0.1 % (0.0-2.0); EOSINOPHILS # (AUTO) 0.7 K/uL (0.0-0.4); EOSINOPHILS % (AUTO) 5.1 % (0.0-4.0); HEMATOCRIT 36.1 % (36-54); HEMOGLOBIN 11.7 g/dL (14.0-18.0); MEAN CORPUSCULAR HEMOGLOBIN 27 pg (27-31); MEAN CORPUSCULAR HGB CONC 33 % (32-36); MEAN CORPUSCULAR VOLUME 83 fL (79.0-98.0); MONOCYTES % (AUTO) 7.1 % (1.7-9.3); NEUTROPHILS # (AUTO) 11.3 K/uL (1.8-7.7); NEUTROPHILS % (AUTO) 80.7 % (40.0-70.0); PLATELET COUNT (AUTO) 179 K/uL (130-430); RED BLOOD CELL COUNT(AUTO) 4.33 MIL/uL (4.2-6.2); RED CELL DISTRIBUTION WIDTH 16.5 % (9.0-15.0)
[2021-12-11] MEDS: predniSONE 20 MG TABLET PO SCH ×2 (08:45→18:00)
[2021-12-11] MEDS: CHOLECALCIFEROL (VITAMIN D3) 5,000 UNIT TABLET PO SCH (08:45)
[2021-12-11] MEDS: ASCORBIC ACID 500 MG TABLET PO SCH ×2 (08:45→22:02)
[2021-12-11] MEDS: ENOXAPARIN SODIUM 40 MG/0.4 ML SYRINGE SUBCUT SCH (08:47)
[2021-12-11] MEDS: CLOTRIMAZOLE/BETAMETHASONE 45 GM TOPICAL CREAM TP SCH ×2 (08:48→22:04)
--- NOTE | 2021-12-11 09:20 | NUR ---
Physical Therapy PT in to see patient. Patient was able to stand, completely off bed, for a brief period. Tolerated well and stated that it lifted his spirits to know he was making progress.
--- NOTE | 2021-12-11 10:26 | NUR ---
Patient was seen for OT treatment, Tolerated tx well with rest in between task and breathing ex. Pls. see OT tx notes in chart for more details.
[2021-12-11 13:05] VITALS: BP_SYST 120
--- NOTE | 2021-12-11 13:12 | NUR ---
Discharge Planning; DCP faxed pt referral to [facility] [phone], [facility] [phone], [facility] [phone] DCP to follow up
[2021-12-11 16:32] VITALS: BP_SYST 146
--- NOTE | 2021-12-11 16:32 | NUR ---
ST EVALUATION COMPLETED. ST TX NOT INDICATED. RECOMMEND REGULAR/THIN LIQUID DIET. DISTANT SUPERVISION FOR ASPIRATION PRECAUTIONS. PT REQUESTS SIDE OF GRAVY AND ICED TEA WITH EVERY MEAL.
--- NOTE | 2021-12-11 18:10 | NUR ---
Nutrition F/U: Admitting Diagnosis: SOB Medical History Comment: COVID-19, Hypoxic Respiratory Failure, Obesity, unvaccinated status per MD notes. Pt also w/ renal failure which has improved. SARS-CoV-2 Ag (Rapid) 1/2 Positive, 2/2 Negative Subjective Information: RD bedside visit deferred d/t covid isolation. Per EMR reviewed, pt was extubated 11/30. Per MD noted, pt is progressive improving on pulmonary status. ST swallow evaluation was done 12/02 and recommended oral diet of pureed and thin liquids with 1:1 assistance and full aspiration precautions. Per EMR review, Pt requested diet change and is now on mechanical soft, finely chopped w/ Glucerna TID x0 days. Current PO intake plus Glucerna TID is likely meeting estimated nutritional needs. Pt is still weak and not able to ambulate much, remain poor PO intake of 50% x5 days. BM x 1 12/10, Abdomen is soft, non-distended w/ active BS. Skin risk score of 14 noted, 1+ non-pitting edema bilateral lower extremities and bilateral generalized noted. Pt on 3 L NC x0 days, down from 4 L. Noted that pt has rectal tube inserted. Current Diet Order/Nutrition Support: Mechanical soft, finely chopped x0 days. Pertinent Medications: propofol at 16.329 ml/hr (431 kcal/day), decadron, colace liquid, zinc, VIT C, VIT D, lovenox, solumedrol, Pepcid. Pertinent Labs: (12/11) WBC: 14H, Na 137 WNL, K 3.1 L, CO2 35 H, Glu 116 H, Alb 2.8 L Height (Feet) 5 feet Height (Inches) 11.00 inches Weight (Pounds) 300 pounds -- stable since 11/05 Weight (Calculated Kilograms) 136.630708 kilograms Patient Weight 136.078 kg Body Mass Index 41.84 kg/m2 %IBW 174 [place]/Adjusted Body Weight 172#/ 78kg; Adj IBW Obesity: 204#/ 93kg Recent Weight Change Unknown Weight Status Morbidly Obese NEW Estimated Energy Expenditure (kcals/day) 6213-1796 kcals/day (30-35 g/kg IBW d/t critical illness, on vent) Estimated Protein Required (g/day) 117-156 (1.5-2 gm/kg IBW for acute illness/obesity) Estimated Fluid Required (l/day) 2.5 (1 ml/kcal/day for maintenance) Problem/Etiology/Signs/Symptoms Altered nutrition related labs r/t medication interaction AEB elevated BG, on steroid therapy. (*seemingly improving, ongoing) Inadequate PO intake r/t oxygen desaturation AEB current PO intake <75% of calorie needs. (*ongoing) Expected Outcomes/Goals - Monitor PO intake and tolerance w/ goal of pt meeting >80% of estimated nutritional needs, labs trending WNL, normal GI function, skin integrity/wt maintenance Dietitian Recommendations * Continue with mechanical soft, finely chopped diet w/ Glucerna shake TID. (Provide additional of 660 kcal, 30g protein) Follow Up High Risk: F/U in 2-3 days
--- NOTE | 2021-12-11 18:29 | NUR ---
CLOSING NOTE Patient in bed eating dinner, visitor at bedside. Patient's spirits seem to be up, he has been very optimistic throughout the shift. Denies any pain or discomfort at this time. No signs of respiratory distress, nasal cannula in place on 3L. Patient is tolerating his new regular diet well. Navarrete catheter and flexiseal in place, draining to gravity. All needs met, safety checks made and call light within reach.
--- NOTE | 2021-12-11 19:35 | NUR ---
Opening note Late entry d/t patient care. Received patient awake, AOx4, resting in bed, no distress. Nonlabored breathing on 2.5 L NC. He has visitior at bedside. Navarrete catheter drainage bag to gravity and Flexiseal in place. IVF infusing via POP PICC. Updated board.
[2021-12-11 20:10] VITALS: BP_SYST 144
--- NOTE | 2021-12-11 20:54 | NUR ---
Dr. Soliz Received call from Dr. Soliz and received medication order for Potassium 40 MEQ X2 Q6hr (prior lab result K 3.1). Also he said patient reports did not use BiPap at night d/t it makes him cough and he gave orders to decrease settings I:E changed to 10:5, TORB.
[2021-12-11] MEDS ORDERED: POTASSIUM CHLORIDE 20 MEQ TAB.PRT.SR PO ONE (21:00)
--- NOTE | 2021-12-11 22:23 | NUR ---
CENTRAL LINE DRESSING CHANGE Dressing changed per hospital policy. Explained procedure to patient, verbalized understanding. Procedure well tolerated. Sterile technique maintained.
--- NOTE | 2021-12-11 23:00 | NUR ---
PT HAS NOC BI-PAP ORDER. PT DID NOT TOLERATE BI-PAP EVEN WITH SETTING CHANGES. PT MADE AWARE OF THE DR, AND RT RECOMMENDATION TO WEAR THE NOC BI-PAP. PT STILL REFUSED, THE BI-PAP, AND IS ON A NASAL CANNULA AT 2L, AND SATURATING 94% RN MADE AWARE.
[2021-12-12 01:20] VITALS: BP_SYST 142
[2021-12-12] MEDS ORDERED: POTASSIUM CHLORIDE 20 MEQ TAB.PRT.SR PO ONE (03:00)
[2021-12-12] MEDS ORDERED: POTASSIUM CHLORIDE 20 MEQ TAB.PRT.SR ONE (03:44)
--- NOTE | 2021-12-12 03:50 | NUR ---
REPOSITION/MED Turned and repositioned. Scheduled med given. Needs attended to.
--- NOTE | 2021-12-12 04:57 | NUR ---
bed not working - called [facility] [phone], s/w Nataliya. Informed bed (Bariatric XL) is not holding inflation and patient is uncomfortable. Patient reports he feels bars and sinks. She said work order will be sent to [facility] and [facility] will contact us for time/date of service.
--- NOTE | 2021-12-12 06:00 | NUR ---
Reposition Patient is uncomfortable, and was once again reposition and turned, Pillow support placed for "floating support". He was offered pain med for discomfort and he declined, stating he doesn't like to take too many meds.
--- NOTE | 2021-12-12 06:50 | NUR ---
CLOSING NOTE Patient resting in bed, stable, no distress noted. O2 sat 90-93% on 3L NC. Patient fatigued and short of breath but able to assist with repositioning. Left arm with limited range of motion. Patient stated he was uncomfortable in the bed multiple times throughout the night, [facility] was called to request service. Placing pillows below both sides of patient brought some relief. Navarrete catheter and flexiseal in place, draining to gravity. IV fluids infusing per order to POP midline. Midline dressing changed. Safety, fall, and aspiration precautions maintained.
--- NOTE | 2021-12-12 07:30 | NUR ---
OPENING NOTE Patient awake and alert in bed, short of breath and complaining of pain in his low back from the air mattress bed. Encouraged patient to take deep breaths and confirmed proper nasal cannula placement. Oxygen saturation 91% on 3L. RT came in to see patient on their rounds at that time and evaluated the patient. No changes made. Adjusted patient in bed and offset weight with pillows, patient stated that it felt better. All needs met at this time, safety checks made and call light within reach.
[2021-12-12 08:00] VITALS: BP_SYST 140
--- NOTE | 2021-12-12 09:15 | NUR ---
Patient was seen for OT treatment, able to tolerate tx with rest and breathing ex in between task. Denies any pain during and after tx. Pls. see OT tx notes in chart for more details. nursing notified about pt's performance with tx.
[2021-12-12] MEDS: CHOLECALCIFEROL (VITAMIN D3) 5,000 UNIT TABLET PO SCH (09:50)
[2021-12-12] MEDS: predniSONE 20 MG TABLET PO SCH ×2 (09:51→21:47)
[2021-12-12] MEDS: ASCORBIC ACID 500 MG TABLET PO SCH ×2 (09:51→21:47)
[2021-12-12] MEDS: CLOTRIMAZOLE/BETAMETHASONE 45 GM TOPICAL CREAM TP SCH ×2 (09:53→21:49)
[2021-12-12] MEDS: ENOXAPARIN SODIUM 40 MG/0.4 ML SYRINGE SUBCUT SCH (09:54)
[2021-12-12 12:10] VITALS: BP_SYST 147
[2021-12-12] MEDS: 0.45% NACL 1,000 ML IV SCH (12:28)
--- NOTE | 2021-12-12 14:39 | NUR ---
CM: Per Millicent Bella, admission coordinator from [facility] in [place]: the patient is accepted. The transfer is pending auth from insurance, new bed order to facility and patient's clinical readiness. The pt has elevated temp , and wbc today. In addition, prior to the transfer Millicent requests if the rectal tube can be discontinued and documentation from ID that the pt does not need to be in isolation for Covid infection. CM will discuss with MDs. Addendum: 12/12/21 at 1537 by Vicente Mittal RN Per dr Chan: may dc rectal tube today and he will write " No need of Covid isolation" in his progress note. The MD will write the order during his round tonight.
--- NOTE | 2021-12-12 15:13 | NUR ---
PHYSICAL THERAPY CO-SIGN The Physical Therapy Progress Notes documented by [facility]ist [facility] have been reviewed. Reviewed/Co-Signed by: Sascha Randhawa Documentation Done by: UMESH GREENE PTA Addendum: 12/12/21 at 1514 by Sascha Randhawa PT Amended: Links added.
--- NOTE | 2021-12-12 15:14 | NUR ---
PHYSICAL THERAPY CO-SIGN The Physical Therapy Progress Notes documented by Route Sales Representative have been reviewed. Reviewed/Co-Signed by: Sascha Randhawa Documentation Done by: UMESH GREENE PTA Addendum: 12/12/21 at 1514 by Sascha Randhawa PT Amended: Links added.
[2021-12-12 18:02] VITALS: BP_SYST 142
--- NOTE | 2021-12-12 19:40 | NUR ---
pening note Late entry d/t patient care. Received patient awake, AOx4, resting in bed, no distress. Nonlabored breathing on 2.5 L NC.; oxygen saturation was 89% and increased to 3L and saturation increased to 91% Navarrete catheter drainage bag to gravity and Flexiseal in place. IVF infusing via POP PICC. Updated board.
[2021-12-12 20:00] VITALS: BP_SYST 147
--- NOTE | 2021-12-12 21:50 | NUR ---
meds Scheduled meds given; reviewed indication/side effects and he verbalized understanding.
[2021-12-13 00:44] VITALS: BP_SYST 127
[2021-12-13] MEDS: 0.45% NACL 1,000 ML IV SCH ×4 (02:58→22:33)
--- NOTE | 2021-12-13 03:47 | NUR ---
Dr Chan rounds Dr. Chan here making rounds; entered new orders, will carry out.
[2021-12-13 07:16] LABS: BASOPHILS % (AUTO) 0.3 % (0.0-2.0); EOSINOPHILS # (AUTO) 0.3 K/uL (0.0-0.4); EOSINOPHILS % (AUTO) 2.2 % (0.0-4.0); HEMATOCRIT 33.9 % (36-54); HEMOGLOBIN 10.9 g/dL (14.0-18.0); LYMPHOCYTES # (AUTO) 0.8 K/uL (1.0-5.5); LYMPHOCYTES % (AUTO) 5.8 % (20.5-51.5); MEAN CORPUSCULAR HEMOGLOBIN 27 pg (27-31); MEAN CORPUSCULAR HGB CONC 32 % (32-36); MEAN CORPUSCULAR VOLUME 83 fL (79.0-98.0); MONOCYTES # (AUTO) 0.8 K/uL (0.0-1.0); MONOCYTES % (AUTO) 5.7 % (1.7-9.3); NEUTROPHILS # (AUTO) 12.5 K/uL (1.8-7.7); PLATELET COUNT (AUTO) 156 K/uL (130-430); RED BLOOD CELL COUNT(AUTO) 4.08 MIL/uL (4.2-6.2); RED CELL DISTRIBUTION WIDTH 16.5 % (9.0-15.0); WHITE BLOOD COUNT (AUTO) 14.6 K/uL (4.8-10.8)
[2021-12-13 07:35] LABS: CALCIUM 8.7 mg/dL (8.4-11.0); CREATININE 0.71 mg/dL (0.55-1.30); POTASSIUM 3.6 mmol/L (3.5-5.1)
[2021-12-13 07:46] VITALS: BP_SYST 148
--- NOTE | 2021-12-13 08:27 | NUR ---
CM: Faxed ID updated progress notes to [facility] fax @ [phone], tel [phone].
[2021-12-13] MEDS ORDERED: FUROSEMIDE 20 MG/2 ML VIAL ONE (08:37)
[2021-12-13] MEDS: CHOLECALCIFEROL (VITAMIN D3) 5,000 UNIT TABLET PO SCH (08:52)
[2021-12-13] MEDS: predniSONE 20 MG TABLET PO SCH ×2 (08:52→17:28)
[2021-12-13] MEDS: ASCORBIC ACID 500 MG TABLET PO SCH ×2 (08:52→22:32)
[2021-12-13] MEDS: FUROSEMIDE 20 MG/2 ML VIAL IVP SCH ×2 (08:52→21:00)
[2021-12-13] MEDS: ENOXAPARIN SODIUM 40 MG/0.4 ML SYRINGE SUBCUT SCH (08:54)
[2021-12-13] MEDS: CLOTRIMAZOLE/BETAMETHASONE 45 GM TOPICAL CREAM TP SCH ×2 (09:01→21:00)
--- NOTE | 2021-12-13 09:17 | NUR ---
Patient was seen for OT treatment, tolerated tx withoit complian of pain, O2Sat 92-94% with 3L of O2 via nasal canula. denies any pain during and after treatment. Pls see OT tx notes in chart for more details.
[2021-12-13 09:26] LABS: BILIRUBIN,URINE NEGATIVE (NEGATIVE); COLOR,URINE YELLOW (YELLOW); GLUCOSE,URINE NEGATIVE (NEGATIVE); KETONES,URINE NEGATIVE (NEGATIVE); LEUKOCYTE ESTERASE ,URINE 3+ (NEGATIVE); NITRITE, URINE POSITIVE (NEGATIVE); PROTEIN URINE NEGATIVE (NEGATIVE); UROBILINOGEN,URINE 0.2 (0.2-1.0)
[2021-12-13 10:05] LABS: BLOOD, URINE TRACE (NEGATIVE); CLARITY/URINE SLIGHTLY HAZY (CLEAR)
[2021-12-13 10:10] LABS: BACTERIA,URINE MODERATE /HPF (None Seen); YEAST,URINE Few /HPF (None Seen)
[2021-12-13 11:41] VITALS: BP_SYST 140
--- NOTE | 2021-12-13 12:50 | NUR ---
Discharge Planning: DCP faxed pt covid results to Millicent [phone] [facility], patient accept.
[2021-12-13 15:21] VITALS: BP_SYST 125
--- NOTE | 2021-12-13 15:30 | NUR ---
PHYSICAL THERAPY CO-SIGN The Physical Therapy Progress Notes documented by Brine Maker have been reviewed. Reviewed/Co-Signed by: Sascha Randhawa Documentation Done by: UMESH LUTZ LIPCOAT SPRAYER Addendum: 12/13/21 at 1530 by Sascha Randhawa PT Amended: Links added.
--- NOTE | 2021-12-13 18:40 | NUR ---
Note Pt was checked on q1' and PRN all shift for needs and care. Pt's bed is Bariatric bed - does not go down to low position. Bed rails were raised and pt instructed to call for any and all needs. Pt dioes self turn and pillows put behind pt for positioning. Flex seal was dc'd per MD order. Pt's Navarrete catheter and tele unit attached and intact all shift. POP PICC intact and patent infusing IVF's well. Pt has 3 friends and his father visiting since around 1800. No needs noted at this time. Call light within reach.
[2021-12-13 20:00] VITALS: BP_SYST 123
[2021-12-14] VITALS: BP_SYST 122
[2021-12-14] MEDS: 0.45% NACL 1,000 ML IV SCH ×2 (06:51→16:05)
[2021-12-14 08:00] VITALS: BP_SYST 129
[2021-12-14 08:18] LABS: BASOPHILS % (AUTO) 0.2 % (0.0-2.0); EOSINOPHILS # (AUTO) 0.6 K/uL (0.0-0.4); EOSINOPHILS % (AUTO) 4.6 % (0.0-4.0); HEMATOCRIT 37.4 % (36-54); LYMPHOCYTES # (AUTO) 1.1 K/uL (1.0-5.5); LYMPHOCYTES % (AUTO) 8.3 % (20.5-51.5); MEAN CORPUSCULAR HEMOGLOBIN 27 pg (27-31); MEAN CORPUSCULAR HGB CONC 32 % (32-36); MEAN CORPUSCULAR VOLUME 83 fL (79.0-98.0); MONOCYTES # (AUTO) 0.9 K/uL (0.0-1.0); MONOCYTES % (AUTO) 7.1 % (1.7-9.3); NEUTROPHILS # (AUTO) 10.6 K/uL (1.8-7.7); NEUTROPHILS % (AUTO) 79.8 % (40.0-70.0); PLATELET COUNT (AUTO) 184 K/uL (130-430); RED BLOOD CELL COUNT(AUTO) 4.52 MIL/uL (4.2-6.2); RED CELL DISTRIBUTION WIDTH 16.6 % (9.0-15.0); WHITE BLOOD COUNT (AUTO) 13.3 K/uL (4.8-10.8)
[2021-12-14 08:31] VITALS: BP_SYST 122
[2021-12-14 08:52] LABS: ALBUMIN 2.5 g/dL (3.4-4.8); CREATININE 0.74 mg/dL (0.55-1.30); POTASSIUM 3.3 mmol/L (3.5-5.1); TOTAL BILIRUBIN 0.8 mg/dL (0.0-1.0)
[2021-12-14] MEDS: ENOXAPARIN SODIUM 40 MG/0.4 ML SYRINGE SUBCUT SCH (09:07)
[2021-12-14] MEDS: predniSONE 20 MG TABLET PO SCH ×2 (09:07→17:35)
[2021-12-14] MEDS: traMADol HCL HCL 50 MG TABLET (ULTRAM) PO PRN (09:08)
[2021-12-14] MEDS: ASCORBIC ACID 500 MG TABLET PO SCH ×2 (09:08→20:20)
[2021-12-14] MEDS: CHOLECALCIFEROL (VITAMIN D3) 5,000 UNIT TABLET PO SCH (09:09)
[2021-12-14] MEDS: CLOTRIMAZOLE/BETAMETHASONE 45 GM TOPICAL CREAM TP SCH ×2 (09:12→20:23)
[2021-12-14] MEDS: FUROSEMIDE 20 MG/2 ML VIAL IVP SCH ×2 (09:12→20:21)
[2021-12-14 11:25] VITALS: BP_SYST 135
[2021-12-14 15:10] VITALS: BP_SYST 113
--- NOTE | 2021-12-14 15:23 | NUR ---
PHYSICAL THERAPY CO-SIGN The Physical Therapy Progress Notes documented by Oyster Tonger have been reviewed. Reviewed/Co-Signed by: Elicia Funes PT Documentation Done by:ELISSA DIAZ SUPERVISOR COMMERCIAL FISH HATCHERY Addendum: 12/14/21 at 1523 by Elicia Funes PT Amended: Links added.
--- NOTE | 2021-12-14 19:17 | NUR ---
HIGH ALERT NOTE: Called Dr. Kitchen back at [phone] identified within the medical roster to verify physician authenticity.
[2021-12-14] MEDS ORDERED: POTASSIUM CHLORIDE 20 MEQ TAB.PRT.SR PO ONE (19:30)
[2021-12-14 20:05] VITALS: BP_SYST 142
--- NOTE | 2021-12-14 20:05 | NUR ---
Opening notes Late entry due to pt care: Pt AAOx4, VSS, afebrile. No c/o pain or SOB. O2 3L via NC 93-96%. Pt on regular diet, tolerating well. IVF infusing at ordered rate POP PICC line double lumen, dressing C/D/I. Navarrete catheter draining to gravity with clear, yellow urine. Call light/items within reach. To monitor.
[2021-12-15 00:15] VITALS: BP_SYST 140
[2021-12-15] MEDS: 0.45% NACL 1,000 ML IV SCH ×2 (04:01→10:56)
[2021-12-15 08:00] VITALS: BP_SYST 146
[2021-12-15] MEDS: predniSONE 20 MG TABLET PO SCH ×2 (09:31→17:13)
[2021-12-15] MEDS: traMADol HCL HCL 50 MG TABLET (ULTRAM) PO PRN (09:31)
[2021-12-15] MEDS: ASCORBIC ACID 500 MG TABLET PO SCH ×2 (09:31→21:02)
[2021-12-15] MEDS: FUROSEMIDE 20 MG/2 ML VIAL IVP SCH ×2 (09:33→21:03)
[2021-12-15] MEDS: CHOLECALCIFEROL (VITAMIN D3) 5,000 UNIT TABLET PO SCH (09:33)
[2021-12-15] MEDS: CLOTRIMAZOLE/BETAMETHASONE 45 GM TOPICAL CREAM TP SCH ×2 (09:34→21:03)
[2021-12-15] MEDS: ENOXAPARIN SODIUM 40 MG/0.4 ML SYRINGE SUBCUT SCH (09:34)
[2021-12-15 11:28] VITALS: BP_SYST 134
[2021-12-15 15:29] VITALS: BP_SYST 109
[2021-12-15 20:05] VITALS: BP_SYST 139
[2021-12-16] VITALS: BP_SYST 129
[2021-12-16] MEDS: 0.45% NACL 1,000 ML IV SCH ×3 (03:44→21:39)
--- NOTE | 2021-12-16 05:25 | NUR ---
Closing notes Pt asleep, no s/s distress noted. Pt on O2 3L via NC O2 sat 91-96%. IVF infusing at ordered rate POP PICC line double lumen, dressing C/D/I. Navarrete catheter draining to drainage, with clear yellow urine. Call light/items within reach. To endorse to AM nurse.
[2021-12-16 08:18] LABS: CALCIUM 9.2 mg/dL (8.4-11.0); CREATININE 0.83 mg/dL (0.55-1.30); POTASSIUM 3.2 mmol/L (3.5-5.1)
[2021-12-16 08:52] LABS: BASOPHILS # (AUTO) 0.1 K/uL (0.0-0.2); BASOPHILS % (AUTO) 0.6 % (0.0-2.0); EOSINOPHILS # (AUTO) 0.8 K/uL (0.0-0.4); EOSINOPHILS % (AUTO) 5.1 % (0.0-4.0); HEMATOCRIT 37.6 % (36-54); LYMPHOCYTES # (AUTO) 1.1 K/uL (1.0-5.5); LYMPHOCYTES % (AUTO) 7.1 % (20.5-51.5); MEAN CORPUSCULAR HEMOGLOBIN 27 pg (27-31); MEAN CORPUSCULAR HGB CONC 32 % (32-36); MEAN CORPUSCULAR VOLUME 83 fL (79.0-98.0); MONOCYTES % (AUTO) 6.7 % (1.7-9.3); NEUTROPHILS # (AUTO) 12.6 K/uL (1.8-7.7); NEUTROPHILS % (AUTO) 80.5 % (40.0-70.0); PLATELET COUNT (AUTO) 191 K/uL (130-430); RED BLOOD CELL COUNT(AUTO) 4.53 MIL/uL (4.2-6.2); RED CELL DISTRIBUTION WIDTH 15.9 % (9.0-15.0); WHITE BLOOD COUNT (AUTO) 15.6 K/uL (4.8-10.8)
[2021-12-16] MEDS ORDERED: POTASSIUM CHLORIDE 20 MEQ TAB.PRT.SR PO ONE (09:00)
[2021-12-16] MEDS: predniSONE 20 MG TABLET PO SCH ×2 (10:00→17:26)
[2021-12-16] MEDS: CLOTRIMAZOLE/BETAMETHASONE 45 GM TOPICAL CREAM TP SCH ×2 (10:00→21:39)
[2021-12-16] MEDS: CHOLECALCIFEROL (VITAMIN D3) 5,000 UNIT TABLET PO SCH (11:06)
[2021-12-16] MEDS: ASCORBIC ACID 500 MG TABLET PO SCH ×2 (11:06→21:36)
[2021-12-16] MEDS: ENOXAPARIN SODIUM 40 MG/0.4 ML SYRINGE SUBCUT SCH (11:09)
[2021-12-16 12:23] VITALS: BP_SYST 133
--- NOTE | 2021-12-16 15:03 | NUR ---
PHYSICAL THERAPY CO-SIGN The Physical Therapy Progress Notes documented by Emissions Engineer have been reviewed. Reviewed/Co-Signed by: Sascha Randhawa Documentation Done by: UMESH GREENE PTA Addendum: 12/16/21 at 1506 by Sascha Randhawa PT Amended: Links added.
--- NOTE | 2021-12-16 15:09 | NUR ---
CM: Per JOSE MANUEL Shen, pt was on O2 3l nc , he was desat to 80% last night and continue sat 90% on her shift. I updated and faxed the clinicals to Millicent[facility]. Per Millicent, she will get and approval from [facility] for admission but still pending bariatric bed delivery and room assignment. Millicent made aware that the pt is cleared to transfer once bed is available. __ JOSE MANUEL Shen made aware.
--- NOTE | 2021-12-16 16:03 | NUR ---
Patient was seen for OT treatment, tolerated tx with rest in between and breathing ex. Denies any pain during and after tx. Pls see OT daily tx notes in chat for more details. Nursing notified.
[2021-12-16 16:48] VITALS: BP_SYST 135
[2021-12-16 20:00] VITALS: BP_SYST 129
--- NOTE | 2021-12-16 20:00 | NUR ---
RECEIVED PT FROM AM NURSE AOX4, NO S/S OF DISTRESS OR DISCOMFORT NOTED, BREATHING EVEN AND UNLABORED, 3L NC NOTED, VSS, CALL LIGHT WITHIN REACH,PEREZ CATH NOTED DRAINING CLEAR YELLOW URINE,PICC NOTED POP INFUSING 1/2 NS AT 100ML/HR, PT DENIES PAIN, BED IN LOWEST POSITION, REPOSITIONED SELF PER COMFORT, SIDE RAILS UP X2, WHEELS LOCKED, WILL CONTINUE TO MONITOR.
--- NOTE | 2021-12-17 00:36 | NUR ---
PEREZ CATH DISCONTINUED PER MD ORDER, WILL CONTINUE TO MONITOR.
[2021-12-17 01:12] VITALS: BP_SYST 130
[2021-12-17] MEDS: 0.45% NACL 1,000 ML IV SCH ×2 (06:16→17:39)
--- NOTE | 2021-12-17 06:19 | NUR ---
NO S/S OF DISTRESS OR DISCOMFORT NOTED, PT RESTING QUIETLY IN BED, REPOSITIONED PER COMFORT, ALL FALL PROTOCOLS IN PLACE, WILL CONTINUE TO MONITOR. Addendum: 12/17/21 at 0620 by Aliya Smallwood RN NO S/S OF DISTRESS OR DISCOMFORT NOTED, PT RESTING QUIETLY IN BED, REPOSITIONED SELF PER COMFORT, STILL ON 3L NASAL CANNULA SATURATING AROUND 90-92%, ALL FALL PROTOCOLS IN PLACE, WILL CONTINUE TO MONITOR.
--- NOTE | 2021-12-17 07:25 | NUR ---
SHIFT REPORT REPORT GIVEN TO JOSE MANUEL IRIZARRY FOR CONTINUITY OF CARE, ALL QUESTIONS WERE ANSWERED AND RN VERBALIZED UNDERSTANDING.
[2021-12-17 08:00] VITALS: BP_SYST 127
[2021-12-17 08:19] VITALS: BP_SYST 135
[2021-12-17] MEDS: ASCORBIC ACID 500 MG TABLET PO SCH ×2 (09:33→22:20)
[2021-12-17] MEDS: predniSONE 20 MG TABLET PO SCH ×2 (09:33→17:39)
[2021-12-17] MEDS: ENOXAPARIN SODIUM 40 MG/0.4 ML SYRINGE SUBCUT SCH (09:33)
[2021-12-17] MEDS: CHOLECALCIFEROL (VITAMIN D3) 5,000 UNIT TABLET PO SCH (09:33)
--- NOTE | 2021-12-17 10:25 | NUR ---
Physical Therapist was present to co-treat with the THERAPY COORDINATOR. Patient was able to start gait training today. See the THERAPY COORDINATOR's Acute daily flowsheet for treatment details. Patient's strength, balance, and endurance are gradually improving. Plan: Advance functional mobility activities as tolerated. 2 person assist for safety at this time.
--- NOTE | 2021-12-17 11:43 | NUR ---
PHYSICAL THERAPY CO-SIGN The Physical Therapy Progress Notes documented by Food And Beverage Attendant have been reviewed. Reviewed/Co-Signed by: Sascha Randhawa Documentation Done by: UMESH GREENE PTA Addendum: 12/17/21 at 1143 by Sascha Randhawa PT Amended: Links added.
[2021-12-17 12:29] VITALS: BP_SYST 147
[2021-12-17] MEDS: CLOTRIMAZOLE/BETAMET DIPROP 15 GM TUBE TP SCH ×2 (12:30→22:21)
--- NOTE | 2021-12-17 13:00 | NUR ---
CM: Updated and faxed PT, Progress notes to Millicent, [facility] , made aware that the pt agreed with the [place] or [place] locations. Millicent is working on get the bed to either facility. CM to f/u.
--- NOTE | 2021-12-17 17:01 | NUR ---
Patient was seen for OT tx, alert and cooperative. tolerated tx without complain of pain. Pls see OT tx notes in chart for more details.
[2021-12-17 17:15] VITALS: BP_SYST 136
[2021-12-17 20:00] VITALS: BP_SYST 132
--- NOTE | 2021-12-17 20:00 | NUR ---
RECEIVED PT FROM AM NURSE AOX4, NO S/S OF DISTRESS OR DISCOMFORT NOTED, BREATHING EVEN AND UNLABORED, 3L NC NOTED, VSS, CALL LIGHT WITHIN REACH,PICC NOTED POP INFUSING 1/2 NS AT 100ML/HR, PT DENIES PAIN, URINAL WITH IMMEDIATE REACH, BED IN LOWEST POSITION, REPOSITIONED SELF PER COMFORT, SIDE RAILS UP X2, WHEELS LOCKED, WILL CONTINUE TO MONITOR.
--- NOTE | 2021-12-18 | NUR ---
NO S/S OF DISTRESS OR DISCOMFORT NOTED, PT RESTING QUIETLY IN BED, REPOSITIONED SELF PER COMFORT, STILL ON 3L NASAL CANNULA SATURATING AROUND 90-95%, ALL FALL PROTOCOLS IN PLACE, WILL CONTINUE TO MONITOR.
[2021-12-18 00:16] VITALS: BP_SYST 129
[2021-12-18] MEDS: 0.45% NACL 1,000 ML IV SCH ×3 (01:00→21:00)
--- NOTE | 2021-12-18 06:39 | NUR ---
NO ACUTE DISTRESS OR DISCOMFORT NOTED, WILL CONTINUE TO MONITOR.
--- NOTE | 2021-12-18 07:21 | NUR ---
SHIFT REPORT REPORT GIVEN TO JOSE MANUEL IRIZARRY FOR CONTINUITY OF CARE, ALL QUESTIONS WERE ANSWERED AND RN VERBALIZED UNDERSTANDING.
[2021-12-18 07:25] LABS: CREATININE 0.82 mg/dL (0.55-1.30); POTASSIUM 3.7 mmol/L (3.5-5.1)
[2021-12-18 08:00] VITALS: BP_SYST 130
[2021-12-18] MEDS: ASCORBIC ACID 500 MG TABLET PO SCH ×2 (09:31→22:42)
[2021-12-18] MEDS: predniSONE 20 MG TABLET PO SCH ×2 (09:31→17:52)
[2021-12-18] MEDS: levoFLOXacin 500 MG TABLET PO SCH (09:31)
[2021-12-18] MEDS: CHOLECALCIFEROL (VITAMIN D3) 5,000 UNIT TABLET PO SCH (09:31)
[2021-12-18] MEDS: ENOXAPARIN SODIUM 40 MG/0.4 ML SYRINGE SUBCUT SCH (09:33)
[2021-12-18] MEDS: CLOTRIMAZOLE/BETAMET DIPROP 15 GM TUBE TP SCH ×2 (09:33→21:00)
--- NOTE | 2021-12-18 09:37 | NUR ---
Nutrition F/U: Admitting Diagnosis: SOB Medical History Comment: COVID-19, Hypoxic Respiratory Failure, Obesity, unvaccinated status per MD notes. Pt also w/ renal failure which has improved. SARS-CoV-2 Ag (Rapid) 11/03 Positive, 2 Negative Subjective Information: RD bedside visit deferred d/t covid isolation. 11/30 S/P extubation 12/02 ST swallow eval recommended oral diet of pureed and thin liquids with 1:1 assistance and full aspiration precautions. Per EMR reviewed, ST swallow evaluation completed on 12/11 recommended regular/thin liquid diet. distant supervision for aspiration precautions. Diet advanced to regular diet on 12/11. PO intake is fair w/ 75% average intake x6 meals. Last BM x3 12/16. Pts weakness is improving. Abdomen is soft, non-distended w/ active BS. Skin risk score of 15 noted, edema has improved as well. Pt on 2 L NC x1 days, down from 4 L. Noted that pt has rectal tube inserted, not needed per MD note. Current Diet Order/Nutrition Support: Regular diet x7 days. Pertinent Medications: propofol PRN, zinc, VIT C, VIT D, lovenox, prednisone. Pertinent Labs: (12/16) WBC 15.6 H, K 3.2 L, BUN 25 H, BG 115 H, Alb 2.5 L Height (Feet) 5 feet Height (Inches) 11.00 inches Weight (Pounds) 300 pounds -- stable since 11/05 Weight (Calculated Kilograms) 136.905115 kilograms Patient Weight 136.078 kg Body Mass Index 41.84 kg/m2 %IBW 174 [place]/Adjusted Body Weight 172#/ 78kg; Adj IBW Obesity: 204#/ 93kg Recent Weight Change Unknown Weight Status Morbidly Obese Estimated Energy Expenditure (kcals/day) 7820-1708 kcals/day (30-35 g/kg IBW d/t critical illness) Estimated Protein Required (g/day) 117-156 (1.5-2 gm/kg IBW for acute illness/obesity) Estimated Fluid Required (l/day) 2.5 (1 ml/kcal/day for maintenance) Problem/Etiology/Signs/Symptoms Altered nutrition related labs r/t medication interaction AEB elevated BG, on steroid therapy. (*seemingly improving, ongoing) Inadequate PO intake r/t oxygen desaturation AEB current PO intake <80% of calorie needs. (*ongoing) Expected Outcomes/Goals - Monitor PO intake and tolerance w/ goal of pt meeting >80% of estimated nutritional needs, labs trending WNL, normal GI function, skin integrity/wt maintenance Dietitian Recommendations * Continue with Regular diet. Consider adding Glucerna TID if intake does not improve (Provided additional of 660 kcal, 30g protein) Follow Up Low Risk: F/U in 5-7 days
--- NOTE | 2021-12-18 12:00 | NUR ---
CRITICAL LAB: from Laboratory called with critical lab value D dimer 2420. Medical record number and patient name verified. Read back of values done. notified of value. medication orders eliquis given at this time.
--- NOTE | 2021-12-18 12:29 | NUR ---
Discharge Planning: DCP faxed pt D-Dimer results results to Millicent [phone] [facility].
[2021-12-18 12:50] VITALS: BP_SYST 124
[2021-12-18 16:39] VITALS: BP_SYST 111
--- NOTE | 2021-12-18 17:48 | NUR ---
Patient was seen for OT tx, tolerated tx well with rest in between and breathing ex. Denies any pain during and after tx. Pls. see Ot tx notes in chart for more details.
--- NOTE | 2021-12-18 20:25 | NUR ---
BED CHANGED: PT CALLED AND COMPLAINED THAT HE IS LYING DOWN ON A METAL BAR , TRIED TO INFLATE THE BED, NOTICED THAT THE MIDSECTION THE HIGHEST NO IS 10 AND NOT INCREASING ANYMORE . PT REQUESTED TO CHANGE BED , ( PT IS ON [facility] BED WITH AIR MATTRESS). ALSO EXPLAINED TO HIM WHY IS ON THIS BED. PT STATED" YOU WANT ME TO LYING DOWN ON THIS F.... BED , I AM TIRED OF THIS, THIS IS BEEN GOING ON , I AM SUFFERED A LOT AND YOU WANT ME TO SUFFER MORE ,YOU DONT CARE ABOUT IT ,I AM THE ONE WHO IS SUFFERING , I WANT YOU TO MOVE ME TO A REGULAR BED , I AM ABLE TO MOVE NOW . I WANT YOU TO CHANGE TO A REGULAR BED NOW ." PT IS SCREAMING AT ME , RTS WERE ON THE BEDSIDE TOO. CHECKED PTS WEIGHT -306.5 LBS, OUT HOSPITAL BED CAN HOLD UPTO 500LBS ; SO MOVED PT TO REGULAR HOSPITAL BED NOTIFIED PRIMARY RN . ALSO CALLED AND NOTIFIED CEREAL CHEMIST SO THEY CAN CALL [facility] AND NOTIFY .
--- NOTE | 2021-12-18 20:28 | NUR ---
Airflow bed lost air flotation. Transferred to regular bed.
[2021-12-18] MEDS: APIXABAN 2.5 MG TABLET PO SCH (22:45)
[2021-12-19 00:20] VITALS: BP_SYST 146
[2021-12-19] MEDS: 0.45% NACL 1,000 ML IV SCH ×2 (07:00→10:55)
--- NOTE | 2021-12-19 07:30 | NUR ---
Restful night. Denies pain thru out noc. No observable distress noted. Awake and alertx4 this a.m. Good night. Verbal report to on-coming nurse. Relinquished care of pt at this time.
[2021-12-19 08:00] VITALS: BP_SYST 140
[2021-12-19] MEDS: CHOLECALCIFEROL (VITAMIN D3) 5,000 UNIT TABLET PO SCH (08:48)
[2021-12-19] MEDS: predniSONE 20 MG TABLET PO SCH ×2 (08:48→17:41)
[2021-12-19] MEDS: ASCORBIC ACID 500 MG TABLET PO SCH (08:48)
[2021-12-19] MEDS: APIXABAN 2.5 MG TABLET PO SCH (08:48)
[2021-12-19] MEDS: CLOTRIMAZOLE/BETAMET DIPROP 15 GM TUBE TP SCH (08:49)
--- NOTE | 2021-12-19 10:13 | NUR ---
Patient was seen for OT tx, tolerated tx without complain of pain. Pls see OT tx notes in chart for more details.
[2021-12-19] MEDS: levoFLOXacin 500 MG TABLET PO SCH (10:54)
[2021-12-19 13:05] VITALS: BP_SYST 127
--- NOTE | 2021-12-19 14:44 | NUR ---
CM: f/u with Millicent this am , still has not received the approval from her administration and insurance, Uzma, director spoke with Millicent , requesting to expedite the process. Meanwhile, black faxed the referral to [facility] for adm. reconsideration fax # [phone]. tel [phone] attn Misti.
[2021-12-19 17:04] VITALS: BP_SYST 138
--- NOTE | 2021-12-19 19:30 | NUR ---
REPORT RECEIVED FROM OFF GOING RN WITH POSSIBLE PLANS FOR D/C TO [facility] PENDING INSURANCE ARRANGEMENTS. PT AWAKE IN BED WITHOUT COMPLAINTS. DENIES NEED FOR PAIN MED PRESENTLY. STATED ENJOYING REGULAR BED VERY MUCH. CONTINUE TO MONITOR AND ASSIST NEEDED.
[2021-12-20] MEDS: ASCORBIC ACID 500 MG TABLET PO SCH ×3 (00:41→21:12)
[2021-12-20 00:45] VITALS: BP_SYST 147
[2021-12-20] MEDS: APIXABAN 2.5 MG TABLET PO SCH ×3 (00:49→21:14)
[2021-12-20] MEDS: CLOTRIMAZOLE/BETAMET DIPROP 15 GM TUBE TP SCH ×3 (00:51→21:22)
[2021-12-20] MEDS: 0.45% NACL 1,000 ML IV SCH ×2 (03:10→13:03)
[2021-12-20 07:09] LABS: BASOPHILS # (AUTO) 0.1 K/uL (0.0-0.2); BASOPHILS % (AUTO) 0.4 % (0.0-2.0); EOSINOPHILS # (AUTO) 0.3 K/uL (0.0-0.4); EOSINOPHILS % (AUTO) 2.6 % (0.0-4.0); HEMATOCRIT 34.4 % (36-54); HEMOGLOBIN 11.3 g/dL (14.0-18.0); LYMPHOCYTES % (AUTO) 7.9 % (20.5-51.5); MEAN CORPUSCULAR HEMOGLOBIN 27 pg (27-31); MEAN CORPUSCULAR HGB CONC 33 % (32-36); MEAN CORPUSCULAR VOLUME 82 fL (79.0-98.0); MONOCYTES # (AUTO) 0.7 K/uL (0.0-1.0); MONOCYTES % (AUTO) 5.5 % (1.7-9.3); NEUTROPHILS % (AUTO) 83.6 % (40.0-70.0); PLATELET COUNT (AUTO) 184 K/uL (130-430); RED BLOOD CELL COUNT(AUTO) 4.17 MIL/uL (4.2-6.2); RED CELL DISTRIBUTION WIDTH 16.2 % (9.0-15.0); WHITE BLOOD COUNT (AUTO) 13.2 K/uL (4.8-10.8)
--- NOTE | 2021-12-20 07:30 | NUR ---
UNEVENTFUL NIGHT. NO CHANGES. REPORT TO ONCOMING NURSE GIVEN. RELINQUISHED CARE OF PT AT THIS TIME.
[2021-12-20 07:47] LABS: CALCIUM 8.5 mg/dL (8.4-11.0); CREATININE 0.81 mg/dL (0.55-1.30); POTASSIUM 3.4 mmol/L (3.5-5.1)
[2021-12-20 08:24] VITALS: BP_SYST 146
--- NOTE | 2021-12-20 10:15 | NUR ---
Patient was seen for OT treatment, tolerated tx with rest and breathing ex in between. Denies any pain during and after tx. Pls see OT tx notes in chart for more details.
[2021-12-20] MEDS: CHOLECALCIFEROL (VITAMIN D3) 5,000 UNIT TABLET PO SCH (10:43)
[2021-12-20] MEDS: predniSONE 20 MG TABLET PO SCH ×2 (10:44→18:00)
[2021-12-20] MEDS: levoFLOXacin 500 MG TABLET PO SCH (10:44)
[2021-12-20 12:27] VITALS: BP_SYST 136
--- NOTE | 2021-12-20 14:51 | NUR ---
PHYSICAL THERAPY CO-SIGN The Physical Therapy Progress Notes documented by Assistant Food Service Manager have been reviewed. Reviewed/Co-Signed by: Sascha Randhawa Documentation Done by: UMESH GREENE PTA Addendum: 12/20/21 at 1457 by Sascha Randhawa PT Amended: Links added.
--- NOTE | 2021-12-20 14:57 | NUR ---
PHYSICAL THERAPY CO-SIGN The Physical Therapy Progress Notes documented by Abstract Manager have been reviewed. Reviewed/Co-Signed by: Sascha Randhawa Documentation Done by: UMESH GREENE PTA Addendum: 12/20/21 at 1457 by Sascha Randhawa PT Amended: Links added.
--- NOTE | 2021-12-20 14:57 | NUR ---
PHYSICAL THERAPY CO-SIGN The Physical Therapy Progress Notes documented by Client Service Supervisor have been reviewed. Reviewed/Co-Signed by: Sascha Randhawa Documentation Done by: UMESH GREENE PTA Addendum: 12/20/21 at 1457 by Sascha Randhawa PT Amended: Links added.
[2021-12-20 15:36] VITALS: BP_SYST 138
--- NOTE | 2021-12-20 16:02 | NUR ---
CM: late entry: Ruth at [facility] came in to evaluate the pt yesterday. The pt is accepted but no authorization from insurance yet. CM f/u with her again today , said still has not received the auth. She will call back once insurance give approval. -- Patient made aware.
[2021-12-20 16:27] VITALS: BP_SYST 132
[2021-12-20 20:00] VITALS: BP_SYST 133
--- NOTE | 2021-12-21 | NUR ---
PICC LINE DRESSING CHANGED. PT. LEA WELL.
[2021-12-21] MEDS: 0.45% NACL 1,000 ML IV SCH ×3 (00:21→21:18)
[2021-12-21 00:40] VITALS: BP_SYST 144
--- NOTE | 2021-12-21 07:30 | NUR ---
VERBAL REPORT TO ONCOMING NURSE. PICC LINE DRSG CHANGE COMPLETED. DENIED NEED FOR PAIN MED DURING NOC SHIFT. RELINQUISHED CARE OF PT AT THIS TIME.
[2021-12-21] MEDS: CHOLECALCIFEROL (VITAMIN D3) 5,000 UNIT TABLET PO SCH (09:00)
[2021-12-21] MEDS: ASCORBIC ACID 500 MG TABLET PO SCH ×2 (09:00→21:07)
[2021-12-21] MEDS: APIXABAN 2.5 MG TABLET PO SCH ×2 (09:00→21:15)
[2021-12-21] MEDS: CLOTRIMAZOLE/BETAMET DIPROP 15 GM TUBE TP SCH ×2 (09:00→21:07)
[2021-12-21 09:07] VITALS: BP_SYST 136
[2021-12-21] MEDS ORDERED: DILTIAZEM HCL 120 MG CAP.SR.24H PO ONE (10:00)
[2021-12-21] MEDS: levoFLOXacin 500 MG TABLET PO SCH (11:07)
[2021-12-21 12:00] VITALS: BP_SYST 126
[2021-12-21 16:00] VITALS: BP_SYST 119
[2021-12-21] MEDS: predniSONE 20 MG TABLET PO SCH (18:00)
--- NOTE | 2021-12-21 19:30 | NUR ---
CHANGE OF SHIFT; endorsed by day shift. no distress. call light within reach.
--- NOTE | 2021-12-21 21:00 | NUR ---
NOTES: Dr. Chan came and seen pt. wants O2 to taper down to 1 liter to keep O2 sat around 93 %. O2 at 2 liters per nc, O2 sat 95%. HOB elewvated, still with occ. jennifer ofough. instructed on use of IS. PICC line on rt. upper arm IVF infusing. using urinal. needs attended. call light at bedside. Addendum: 12/22/21 at 0659 by Ila Dubois RN noted scab on left side of nose and multiple scars on left leg/rt. dry .
--- NOTE | 2021-12-22 00:20 | NUR ---
NOTES: pt. sleeping when checked. IV bag changed.
[2021-12-22 01:21] VITALS: BP_SYST 134
--- NOTE | 2021-12-22 04:04 | NUR ---
NOTES: condition unchanged. IVF infusing. remain sleeping.
[2021-12-22] MEDS: 0.45% NACL 1,000 ML IV SCH ×2 (05:00→15:00)
--- NOTE | 2021-12-22 06:56 | NUR ---
CLOSING NOTES; IVF continuous, will endorse to titrate O2 down to 1 liter as ordered. pt. voided per urinal. needs attended. for further care and observation.
[2021-12-22 08:00] VITALS: BP_SYST 141
[2021-12-22] MEDS: predniSONE 20 MG TABLET PO SCH ×3 (08:00→17:08)
[2021-12-22] MEDS: CLOTRIMAZOLE/BETAMET DIPROP 15 GM TUBE TP SCH ×2 (09:00→20:35)
[2021-12-22] MEDS: ASCORBIC ACID 500 MG TABLET PO SCH ×2 (09:19→20:30)
[2021-12-22] MEDS: DILTIAZEM HCL 120 MG CAP.SR.24H PO SCH (09:20)
[2021-12-22] MEDS: CHOLECALCIFEROL (VITAMIN D3) 5,000 UNIT TABLET PO SCH (09:21)
[2021-12-22] MEDS: APIXABAN 2.5 MG TABLET PO SCH ×2 (09:21→20:34)
[2021-12-22] MEDS: levoFLOXacin 500 MG TABLET PO SCH (09:22)
[2021-12-22 16:00] VITALS: BP_SYST 138
--- NOTE | 2021-12-22 19:15 | NUR ---
CHANGE OF SHIFT; no distress. endorsed by day shift, O2 @ 1 liter per nc, O2 sat 95% as endorsed. call light within reach.
--- NOTE | 2021-12-22 20:30 | NUR ---
NOTES: pt. pretty awake, feeling much better. O2 @ 1 liter per nc. O2 sat 935. IVF infusing via PICC line on rt. upper arm. some swelling noted on lower extremity. instructed on use of IS. occ. bouts of non productive cough heard. call light within reach.
[2021-12-22 21:00] VITALS: BP_SYST 128
--- NOTE | 2021-12-22 22:17 | NUR ---
NOTES: pt. still awake, watching movie from his I pad. no complaints noted.
--- NOTE | 2021-12-22 23:04 | NUR ---
NOTES: DR. Soliz seen pt. at bedside, made aware pt. O2 @ 1 liter per nc. no new order.
[2021-12-23] VITALS (7 sets, daily range): BP systolic 53–153
[2021-12-23] MEDS: 0.45% NACL 1,000 ML IV SCH ×3 (01:00→20:31)
--- NOTE | 2021-12-23 03:00 | NUR ---
NOTES: pt. sleeping. no distress. using urinal to void. condition observed. continue to monitor.
--- NOTE | 2021-12-23 06:35 | NUR ---
CLOSING NOTES; pt. still asleep. IVF continuous. O2 kept @ 1 liter per nc. manpower development advisor distress. needs attended. call light at bedisde. will endorse to incoming shift, no distress.
[2021-12-23] MEDS: predniSONE 20 MG TABLET PO SCH ×2 (08:53→17:35)
[2021-12-23] MEDS: CHOLECALCIFEROL (VITAMIN D3) 5,000 UNIT TABLET PO SCH (08:54)
[2021-12-23] MEDS: ASCORBIC ACID 500 MG TABLET PO SCH ×2 (08:54→20:29)
[2021-12-23] MEDS: levoFLOXacin 500 MG TABLET PO SCH (08:54)
[2021-12-23] MEDS: APIXABAN 2.5 MG TABLET PO SCH ×2 (08:55→20:28)
[2021-12-23] MEDS: DILTIAZEM HCL 120 MG CAP.SR.24H PO SCH (08:55)
[2021-12-23] MEDS: CLOTRIMAZOLE/BETAMET DIPROP 15 GM TUBE TP SCH ×2 (08:56→20:30)
--- NOTE | 2021-12-23 09:58 | NUR ---
alert, oriented, appropriate. doing well at one liter NC, sat 93%, up and about as he could tolerate, no sob noted, denied dyspnea
--- NOTE | 2021-12-23 16:58 | NUR ---
Patient was seen for OT treatment, able to tolerate tx without pain, rest in between and breathing ex. O2Sat 89-93% with 1L of O2 via Nasal canula. PLs see OT tx notes in chart for more details.
--- NOTE | 2021-12-23 19:30 | NUR ---
Opening Note Received report from dayshift nurse, patient awake and resting in bed. No S/S of respiratory distress, breathing even and unlabored. POP PICC line intact and patent, fluids running at ordered rate. Fall and safety precautions in place, bed in lowest position, bed alarm on and call light within reach.
[2021-12-24 00:26] VITALS: BP_SYST 140
[2021-12-24] MEDS: 0.45% NACL 1,000 ML IV SCH ×3 (06:58→22:12)
--- NOTE | 2021-12-24 07:10 | NUR ---
Closing Note Patient awake and resting in bed. No S/S of respiratory distress, breathing even and unlabored. POP PICC line intact and patent, fluids running at ordered rate. Fall and safety precautions in place, bed in lowest position, bed alarm on and call light within reach, all needs met throughout shift.
[2021-12-24 08:00] VITALS: BP_SYST 211
[2021-12-24] MEDS: DILTIAZEM HCL 120 MG CAP.SR.24H PO SCH (09:50)
[2021-12-24] MEDS: ASCORBIC ACID 500 MG TABLET PO SCH ×2 (09:50→22:01)
[2021-12-24] MEDS: predniSONE 20 MG TABLET PO SCH ×2 (09:51→19:38)
[2021-12-24] MEDS: CHOLECALCIFEROL (VITAMIN D3) 5,000 UNIT TABLET PO SCH (09:51)
[2021-12-24] MEDS: levoFLOXacin 500 MG TABLET PO SCH (09:52)
[2021-12-24] MEDS: APIXABAN 2.5 MG TABLET PO SCH ×2 (09:53→22:03)
[2021-12-24] MEDS: CLOTRIMAZOLE/BETAMET DIPROP 15 GM TUBE TP SCH ×2 (09:56→22:19)
--- NOTE | 2021-12-24 09:56 | NUR ---
Patient was seen for OT tx, tolerated tx with rest in betwen task. Denies any pain during and after tx. O2Sat 90-93% with 1L of O2 via nasal canula. Pls. see OT tx notes in chart for more details.
[2021-12-24 12:00] VITALS: BP_SYST 114
--- NOTE | 2021-12-24 14:55 | NUR ---
PHYSICAL THERAPY CO-SIGN The Physical Therapy Progress Notes documented by Cake Inspector have been reviewed. Reviewed/Co-Signed by: Sascha Randhawa Documentation Done by: ELISSA DIAZ PTA Addendum: 12/24/21 at 1456 by Sascha Randhawa PT Amended: Links added.
--- NOTE | 2021-12-24 14:56 | NUR ---
PHYSICAL THERAPY CO-SIGN The Physical Therapy Progress Notes documented by Brick Mason have been reviewed. Reviewed/Co-Signed by: Sascha Randhawa Documentation Done by: UMESH GREENE PTA Addendum: 12/24/21 at 1456 by Sascha Randhawa PT Amended: Links added.
--- NOTE | 2021-12-24 14:56 | NUR ---
PHYSICAL THERAPY CO-SIGN The Physical Therapy Progress Notes documented by Loan Interviewer Mortgage have been reviewed. Reviewed/Co-Signed by: Sascha Randhawa Documentation Done by: UMESH GREENE PTA Addendum: 12/24/21 at 1456 by Sascha Randhawa PT Amended: Links added.
[2021-12-24 16:00] VITALS: BP_SYST 142
--- NOTE | 2021-12-24 23:00 | NUR ---
ROUNDS PATIENT SLEEPING, NO S/S OF ACUTE DISTRESS, FALL AND SAFETY CHECKS IN PLACE, CALL LIGHT WITHIN REACH.
[2021-12-25 00:48] VITALS: BP_SYST 136
--- NOTE | 2021-12-25 03:30 | NUR ---
ROUNDS PATIENT STILL SLEEPING, NO S/S OF ACUTE DISTRESS, FALL AND SAFETY CHECKS IN PLACE, BED IN LOWEST POSITION, CALL LIGHT WITHIN REACH.
[2021-12-25] MEDS: 0.45% NACL 1,000 ML IV SCH ×2 (05:03→23:00)
--- NOTE | 2021-12-25 06:38 | NUR ---
CLOSING NOTE PATIENT AWAKE AND RESTING IN BED, NO S/S OF ACUTE DISTRESS, FLUIDS RUNNING AT ORDERED RATE, FALL AND SAFETY CHECKS IN PLACE, BED AT LOWEST POSITION, CALL LIGHT WITHIN REACH.
[2021-12-25] MEDS: CHOLECALCIFEROL (VITAMIN D3) 5,000 UNIT TABLET PO SCH (09:21)
[2021-12-25] MEDS: APIXABAN 2.5 MG TABLET PO SCH ×2 (09:22→21:45)
[2021-12-25] MEDS: DILTIAZEM HCL 120 MG CAP.SR.24H PO SCH (09:22)
[2021-12-25] MEDS: CLOTRIMAZOLE/BETAMET DIPROP 15 GM TUBE TP SCH ×2 (09:23→21:45)
[2021-12-25] MEDS: ASCORBIC ACID 500 MG TABLET PO SCH ×2 (09:23→21:45)
[2021-12-25] MEDS: predniSONE 20 MG TABLET PO SCH ×2 (09:23→17:54)
--- NOTE | 2021-12-25 10:09 | NUR ---
Nutrition F/U: Admitting Diagnosis: SOB Medical History Comment: COVID-19, Hypoxic Respiratory Failure, Obesity, unvaccinated status per MD notes. Pt also w/ renal failure which has improved. SARS-CoV-2 Ag (Rapid) 2 Positive, 22 Negative, (PCR) Negative 12/09 Subjective Information: RD bedside visit deferred d/t covid isolation. 11/30 S/P extubation 12/02 ST swallow eval recommended oral diet of pureed and thin liquids with 1:1 assistance and full aspiration precautions. 12/11 - ST swallow eval recommended oral diet regular/thin liquid diet Per EMR reviewed, pt continues on regular diet with PO intake is fair w/ 75% average intake x 11 meals. Last BM x1 12/23. Pts weakness is improving per MD note, ambulating w/ assistance. Abdomen is soft, non-distended w/ active BS. Skin risk score of 20 noted, no skin issues noted. Pt on 1 L NC x2 days, down from 2 L. Current Diet Order/Nutrition Support: Regular diet x13 days. Pertinent Medications: zinc, VIT C, VIT D, prednisone, Cardizem. Pertinent Labs: (12/20) K 3.4L, BG 117H Height (Feet) 5 feet Height (Inches) 11.00 inches Weight (Pounds) 300 pounds -- stable since 11/05 Weight (Calculated Kilograms) 136.525535 kilograms Patient Weight 136.078 kg Body Mass Index 41.84 kg/m2 %IBW 174 [place]/Adjusted Body Weight 172#/ 78kg; Adj IBW Obesity: 204#/ 93kg Recent Weight Change Unknown Weight Status Morbidly Obese Estimated Energy Expenditure (kcals/day) 6845-3309 kcals/day (30-35 g/kg IBW d/t critical illness) Estimated Protein Required (g/day) 117-156 (1.5-2 gm/kg IBW for acute illness/obesity) Estimated Fluid Required (l/day) 2.5 (1 ml/kcal/day for maintenance) Problem/Etiology/Signs/Symptoms Altered nutrition related labs r/t medication interaction AEB elevated BG, on steroid therapy. (*seemingly improving, ongoing) Inadequate PO intake r/t oxygen desaturation AEB current PO intake <80% of calorie needs. (*ongoing) Expected Outcomes/Goals - Monitor PO intake and tolerance w/ goal of pt meeting >75% of estimated nutritional needs, labs trending WNL, normal GI function, skin integrity/wt maintenance Dietitian Recommendations * Continue with Regular diet. Follow Up Low Risk: F/U in 5-7 days RU, RD
[2021-12-25 11:30] VITALS: BP_SYST 154
[2021-12-25 15:45] VITALS: BP_SYST 155
--- NOTE | 2021-12-25 16:26 | NUR ---
0800: AWAKE, ALERT, ORIENTED X 4 TO NAME, PERSON, PLACE, AND TIME. RESPIRATION EVEN AND UNLABORED NO S/S OF ANY ACUTE DISTRESS NOTED. ABLE TO VERBALIZE NEEDS NO C/O ANY PAIN OR DISCOMFORT NOTED. ABDOMEN SOFT AND NON-DISTENDED, POSITIVE BOWEL SOUND X 4 NO N/V OR DIARRHEA NOTED. SKIN WARM AND DRY INTACT W/O ANY REDNESS OR EDEMA NOTED. WILL CONTINUE TO REASSESS PATIENT PRN. 1600: REMAIN STABLE W/O ANY CHANGE IN LOC.
--- NOTE | 2021-12-25 17:45 | NUR ---
Pt. was seen for OT tx, tolerated tx without complain of pain. O2Sat 90-94% with 1L of O2 via nasal canula. Pls. see OT tx notes for more details.
--- NOTE | 2021-12-25 19:18 | NUR ---
NO CHANGE FROM INITIAL ASSESSMENT, PATIENT REMAIN COMFORTABLE AND PAINFREE WILL ENDORSE PATIENT TO PM SHIFT NURSE.
[2021-12-25 20:00] VITALS: BP_SYST 125
[2021-12-26 00:30] VITALS: BP_SYST 143
--- NOTE | 2021-12-26 07:08 | NUR ---
PHYSICAL THERAPY CO-SIGN The Physical Therapy Progress Notes documented by Java Performance Engineer have been reviewed. Reviewed/Co-Signed by: Sascha Randhawa Documentation Done by: JAYLON AVELAR PTA Addendum: 12/26/21 at 0709 by Sascha Randhawa PT Amended: Links added.
--- NOTE | 2021-12-26 08:00 | NUR ---
Received report from TARAS RN. Pt is in bed resting with no s/s of distress. Pt has a PICC line in place on right upper arm that is intact. No medications infusing at this time. Pt is A&Ox4. Has a NC running at 1L. Pt states he does not want the NC to go above 1L. O2 saturation is at 95%, all other vitals stable. No chest pain and no sob. Denies n/v. Bed in lowest position and call light is within reach. Educated pt on the use of call light and to press call light for assistance and to not get out of bed without assistance due to preventing pt from falling. Pt states he understands with no further questions. Urinals at bedside as well.
[2021-12-26] MEDS: CLOTRIMAZOLE/BETAMET DIPROP 15 GM TUBE TP SCH (09:05)
[2021-12-26] MEDS: predniSONE 20 MG TABLET PO SCH ×2 (09:05→18:05)
[2021-12-26] MEDS: ASCORBIC ACID 500 MG TABLET PO SCH ×2 (09:05→23:58)
[2021-12-26] MEDS: DILTIAZEM HCL 120 MG CAP.SR.24H PO SCH (09:05)
[2021-12-26] MEDS: 0.45% NACL 1,000 ML IV SCH (09:05)
[2021-12-26] MEDS: CHOLECALCIFEROL (VITAMIN D3) 5,000 UNIT TABLET PO SCH (09:05)
[2021-12-26] MEDS: APIXABAN 2.5 MG TABLET PO SCH ×2 (09:08→23:59)
[2021-12-26 11:38] VITALS: BP_SYST 164
--- NOTE | 2021-12-26 12:12 | NUR ---
All scheduled medications have been given at this time. Pt is A&Ox4. Bed in lowest position and call light is within reach. No c/o from pt. VSS.
[2021-12-26 16:20] VITALS: BP_SYST 167
--- NOTE | 2021-12-26 17:02 | NUR ---
Physical therapist with pt. Pt using walker with assistance and has no c/o. A&Ox4. Skin intact, VSS. No chest pain and no sob. Denies n/v. fresh water at bedside. Bed in lowest position and call light within reach.
--- NOTE | 2021-12-26 17:13 | NUR ---
Patient was seen for OT tx, tolerated tx without complain of pain, O2Sat 89-94% with 1L of O2 via nasal canula. Needs rst in between task and breathing ex. Pls. see OT tx notes in chart for more details.
[2021-12-27] VITALS (7 sets, daily range): BP systolic 126–160
[2021-12-27] MEDS: CLOTRIMAZOLE/BETAMET DIPROP 15 GM TUBE TP SCH ×3 (00:01→20:52)
--- NOTE | 2021-12-27 08:00 | NUR ---
Initial Note Patient sitting up on edge of bed. Awake, alert, and oriented x 4. No pain or distress noted. Saturating 95% on 1 L O2 via N/C. Patient ambulatory with assist and assistive device. Call light and bedside table in reach, bed in lowest position. Encouraged to call.
[2021-12-27] MEDS: APIXABAN 2.5 MG TABLET PO SCH ×2 (08:51→20:53)
[2021-12-27] MEDS: CHOLECALCIFEROL (VITAMIN D3) 5,000 UNIT TABLET PO SCH (08:51)
[2021-12-27] MEDS: predniSONE 20 MG TABLET PO SCH ×2 (08:52→17:20)
[2021-12-27] MEDS: DILTIAZEM HCL 120 MG CAP.SR.24H PO SCH (08:52)
[2021-12-27] MEDS: ASCORBIC ACID 500 MG TABLET PO SCH ×2 (08:52→20:52)
[2021-12-27] MEDS: hydrALAZINE HCL 20 MG/ML VIAL IVP PRN (12:19)
--- NOTE | 2021-12-27 12:47 | NUR ---
PHYSICAL THERAPY CO-SIGN The Physical Therapy Progress Notes documented by Feeder Switchboard Operator have been reviewed. Reviewed/Co-Signed by: Sascha Randhawa Documentation Done by: JAYLON AVELAR PTA Addendum: 12/27/21 at 1248 by Sascha Randhawa PT Amended: Links added.
--- NOTE | 2021-12-27 12:47 | NUR ---
PHYSICAL THERAPY CO-SIGN The Physical Therapy Progress Notes documented by Ceo & Board Director have been reviewed. Reviewed/Co-Signed by: Sascha Randhawa Documentation Done by: JAYLON AVELAR PTA Addendum: 12/27/21 at 1248 by Sascha Randhawa PT Amended: Links added.
--- NOTE | 2021-12-27 14:38 | NUR ---
Spoke to [facility]-they do not have authorization from Insurance, the patient cannot be accepted until [facility] has authorization. Patient is aware he will probably transfer to [facility] next week.
--- NOTE | 2021-12-27 16:39 | NUR ---
OT at bedside No pain or distress observed or reported. Ambulating with OT. Will continue to monitor.
--- NOTE | 2021-12-27 17:21 | NUR ---
Patient was seen for OT tx. Tolerated tx without pain, O2Sat 90-94% with 1 L of O2 via nasal canula, HR 112-124 during activity, 112bpm at rest. Pls see OT tx notes in chart for more details.
--- NOTE | 2021-12-27 18:57 | NUR ---
Closing Note Patient resting in bed, no pain or distress. Patient using oxygen on and off. O2 saturation 95% with 1 L via N/C. Call light in reach, bed locked in lowest position. Will monitor and endorse to night nurse.
--- NOTE | 2021-12-27 20:00 | NUR ---
pt.assessed.v/.s assesse values wnl.no c/o pain,nausea.i have apprised the pt.that snacks/beverages are available w/in the shift.pt.presents snacks per home.no requests [email or web address] [email or web address].[email or web address] to reposition self.pt.ambulation w nsg utilizing the [email or web address].presents picc line location:rt.bicept intact;iv lock.call light/telephone w/in access of the pt.
--- NOTE | 2021-12-28 | NUR ---
pt.assessed.v/s assessed values wnl.no c/o pain,nausea.no requests [email or web address] hour.pt.capable to reposition self.urinal w/in access of the pt.call light/telephone w/in access of the pt.
[2021-12-28 00:48] VITALS: BP_SYST 147
--- NOTE | 2021-12-28 04:00 | NUR ---
pt.assessed.pt.presents quiescent affect calm,somnolent.per flacc pain mgx pt.absent facial grimaces/body posturing. pt.capable to reposition self.urinal w/in access of the pt.call light/telephone w/in access of the pt.
--- NOTE | 2021-12-28 07:50 | NUR ---
Initial Note Patient sitting up at edge of bed awake, alert, and oriented x 4. Family at bedside. No pain or distress. Elevated BP 161/103. Will review antihypertensive medications and administer as ordered. Call light in reach, bed in lowest position. Encouraged to call.
[2021-12-28 08:00] VITALS: BP_SYST 161
[2021-12-28] MEDS: ASCORBIC ACID 500 MG TABLET PO SCH ×2 (08:31→21:22)
[2021-12-28] MEDS: DILTIAZEM HCL 120 MG CAP.SR.24H PO SCH (08:32)
[2021-12-28] MEDS: predniSONE 20 MG TABLET PO SCH (08:32)
[2021-12-28] MEDS: CHOLECALCIFEROL (VITAMIN D3) 5,000 UNIT TABLET PO SCH (08:32)
[2021-12-28] MEDS: hydrALAZINE HCL 20 MG/ML VIAL IVP PRN (08:33)
[2021-12-28] MEDS: APIXABAN 2.5 MG TABLET PO SCH ×2 (08:34→21:25)
[2021-12-28] MEDS: CLOTRIMAZOLE/BETAMET DIPROP 15 GM TUBE TP SCH ×2 (08:35→21:24)
[2021-12-28 11:34] VITALS: BP_SYST 125
--- NOTE | 2021-12-28 12:15 | NUR ---
Notes Patient sitting up on edge of bed. Family at bedside. No pain or distress. Call light in reach, bed in lowest position. Encouraged to call.
--- NOTE | 2021-12-28 15:15 | NUR ---
PICC Line Dressing Change Changed PICC line dressing with sterile, aseptic technique. Site scrubbed with chlorhexidine and covered with transparent dressing. Patient tolerated procedure well. Call light in reach, bed locked in lowest position. Encouraged to call.
[2021-12-28 15:19] VITALS: BP_SYST 159
--- NOTE | 2021-12-28 16:33 | NUR ---
Notes Patient sitting up on edge of bed, no pain or distress. Patient accidentally peeled off dry scab on nose. Red abrasion noted. Area cleansed with NS, pat dry, and covered with bandage. Patient tolerated well. Call light in reach, encouraged to call.
[2021-12-28] MEDS: predniSONE 5 MG TABLET PO SCH (17:07)
--- NOTE | 2021-12-28 18:44 | NUR ---
Closing Note Patient resting in bed, no pain or distress. Awaiting dinner from family; only ate peaches and drank Glucerna from dinner tray. Patient saturating 96% on 1 L of O2 via N/C. Patient will occasionally remove O2. Respirations even and nonlabored. Dyspnea on exertion. Encouraged use of incentive spirometer every one hour. Able to ambulate with assistive device and one person assist. Call light in reach, bed locked in lowest position. Will monitor and endorse to night nurse.
[2021-12-28 20:00] VITALS: BP_SYST 130
[2021-12-28] MEDS ORDERED: predniSONE 20 MG TABLET PO SCH (21:00)
[2021-12-29 01:25] VITALS: BP_SYST 169
[2021-12-29 07:43] LABS: ALBUMIN 2.9 g/dL (3.4-4.8); CREATININE 0.83 mg/dL (0.55-1.30); POTASSIUM 3.3 mmol/L (3.5-5.1); TOTAL BILIRUBIN 0.2 mg/dL (0.0-1.0)
[2021-12-29 07:44] LABS: BASOPHILS # (AUTO) 0.1 K/uL (0.0-0.2); BASOPHILS % (AUTO) 0.4 % (0.0-2.0); EOSINOPHILS # (AUTO) 0.2 K/uL (0.0-0.4); EOSINOPHILS % (AUTO) 1.4 % (0.0-4.0); HEMATOCRIT 36.9 % (36-54); LYMPHOCYTES # (AUTO) 1.3 K/uL (1.0-5.5); LYMPHOCYTES % (AUTO) 9.4 % (20.5-51.5); MEAN CORPUSCULAR HEMOGLOBIN 27 pg (27-31); MEAN CORPUSCULAR HGB CONC 32 % (32-36); MEAN CORPUSCULAR VOLUME 83 fL (79.0-98.0); MONOCYTES # (AUTO) 0.8 K/uL (0.0-1.0); MONOCYTES % (AUTO) 5.6 % (1.7-9.3); NEUTROPHILS # (AUTO) 11.9 K/uL (1.8-7.7); PLATELET COUNT (AUTO) 234 K/uL (130-430); RED BLOOD CELL COUNT(AUTO) 4.46 MIL/uL (4.2-6.2); RED CELL DISTRIBUTION WIDTH 17.4 % (9.0-15.0); WHITE BLOOD COUNT (AUTO) 14.3 K/uL (4.8-10.8)
--- NOTE | 2021-12-29 08:00 | NUR ---
PATIENT AAOX 4. HAS BAND AID ON HIS NOSE. NO BLEEDING NOR DRAINAGE NOTED. VITALS SIGNS STABLE. AFEBRILE. LUNGS BILATERALLY CLEAR. ABDOMEN SOFT AND NON DISTENDED. HAS OXYGEN OF 1 TO 2 LITERS VIA NC. NO SOB NOTED. HAS IV ACCESS ON THE POP PICC LINE. SALINE LOCKED. PATENT/DRY. CALL LIGHTS WITHIN REACH. BED LOW POSITION, ALARMED AND LOCKED. WILL CONTINUE TO MONITOR
[2021-12-29 08:09] VITALS: BP_SYST 144
[2021-12-29 09:45] VITALS: BP_SYST 144
[2021-12-29] MEDS: predniSONE 5 MG TABLET PO SCH ×2 (09:49→17:43)
[2021-12-29] MEDS: CHOLECALCIFEROL (VITAMIN D3) 5,000 UNIT TABLET PO SCH (09:49)
[2021-12-29] MEDS: ASCORBIC ACID 500 MG TABLET PO SCH ×2 (09:49→21:23)
[2021-12-29] MEDS: DILTIAZEM HCL 120 MG CAP.SR.24H PO SCH (09:50)
[2021-12-29] MEDS: APIXABAN 2.5 MG TABLET PO SCH ×2 (09:52→21:25)
[2021-12-29] MEDS: CLOTRIMAZOLE/BETAMET DIPROP 15 GM TUBE TP SCH ×2 (09:53→21:28)
--- NOTE | 2021-12-29 10:00 | NUR ---
DUE MEDS GIVEN. ASSISTS ON ADLS.
[2021-12-29] MEDS: hydrALAZINE HCL 20 MG/ML VIAL IVP PRN (10:07)
[2021-12-29] MEDS ORDERED: hydrALAZINE HCL 25 MG TABLET PO ONE (10:30)
[2021-12-29 11:31] VITALS: BP_SYST 165
[2021-12-29 12:40] LABS: NEUTROPHILS % (AUTO) 83.2 % (40.0-70.0)
--- NOTE | 2021-12-29 14:48 | NUR ---
PATIENT RESTING AT THIS TIME. NO S/S SYMPTOMS OF DISTRESS NOR PAIN NOTES.
[2021-12-29 15:50] VITALS: BP_SYST 135
--- NOTE | 2021-12-29 16:00 | NUR ---
RENEE AND HYGIENE CARE DONE.
--- NOTE | 2021-12-29 18:48 | NUR ---
DUE MEDS GIVEN. MADE COMFORTABLE.
--- NOTE | 2021-12-29 19:30 | NUR ---
Patient received from AM shift. Patient is AA&ox4 able to make needs, denies chest pain or SOB. Chest rise is even and unlabored with CTA on 1-2L via NC. BS are active x4 on auscultation, ABD is soft and non distended, denies pain with palpation, Patient voids freely and denies pain with urination. Band aid is ntoed to the bridge of the nose, no bleeding or drainage is noted. PICC Line is noted to POP, C/D/I patent, flushes, no s/s of arm swelling or infection at the insertion site. Safety protocols remain in place such as: Call light within reach, bed locked, in the lowest position. Will monitor the patine tthroughout the shift.
[2021-12-29 20:00] VITALS: BP_SYST 148
[2021-12-29] MEDS ORDERED: hydrALAZINE HCL 25 MG TABLET PO SCH (21:00)
[2021-12-30 00:53] VITALS: BP_SYST 165
[2021-12-30] MEDS: hydrALAZINE HCL 20 MG/ML VIAL IVP PRN (00:57)
--- NOTE | 2021-12-30 06:26 | NUR ---
Patient is in bed resting no s/s of distress at this time. Patient is able to verbalize needs and denies any pain or discomfort at this time. Chest rise is even and unlabored and remains on O2 via NC at 1.2L. All current shift needs have been met and safety protocols are in place. Patient has call light within reach. Will differ further care to AM shift for continuity of care.
--- NOTE | 2021-12-30 07:35 | NUR ---
PHYSICAL THERAPY CO-SIGN The Physical Therapy Progress Notes documented by Ep Tech have been reviewed. Reviewed/Co-Signed by: Sascha Randhawa Documentation Done by: ELISSA DIAZ PTA Addendum: 12/30/21 at 0735 by Sascha Randhawa PT Amended: Links added.
[2021-12-30 08:00] VITALS: BP_SYST 146
[2021-12-30] MEDS: DILTIAZEM HCL 120 MG CAP.SR.24H PO SCH (10:06)
[2021-12-30] MEDS: APIXABAN 2.5 MG TABLET PO SCH (10:07)
[2021-12-30] MEDS: ASCORBIC ACID 500 MG TABLET PO SCH (10:08)
[2021-12-30] MEDS: predniSONE 5 MG TABLET PO SCH (10:14)
[2021-12-30] MEDS: CHOLECALCIFEROL (VITAMIN D3) 5,000 UNIT TABLET PO SCH (10:14)
[2021-12-30] MEDS: CLOTRIMAZOLE/BETAMET DIPROP 15 GM TUBE TP SCH (10:15)
--- NOTE | 2021-12-30 10:50 | NUR ---
Spoke with Jyoti Bell at [facility]-[phone] Auth # [id number] for 7 days for rehab. She was given the number for [facility]-contact Ruth for authorization to be given. We are waiting for bed assignment from [facility].
[2021-12-30 11:30] VITALS: BP_SYST 160
--- NOTE | 2021-12-30 12:01 | NUR ---
Discharge Planning: DCP arranged with [facility] [phone] bariatric 5:00pm to [facility] [phone]. DCP made nurse aware and patient packet to nurse station. Disposition 03
[2021-12-30] MEDS ORDERED: PRED5TAB PO (14:38)
[2021-12-30] MEDS ORDERED: HYDR-4038 PO (14:38)
[2021-12-30] MEDS ORDERED: APIX2.5T PO (14:38)
[2021-12-30] MEDS ORDERED: DILT120C89 PO (14:38)
[2021-12-30 15:36] VITALS: BP_SYST 122
[2021-12-30 17:14] VITALS: BP_SYST 122
--- NOTE | 2021-12-30 17:20 | NUR ---
Patient was seen for OT tx, patient was agreeable to tx. tolerated tx well without SOB, O2Sat 89-94% at room air. PLs see OT tx notes in chart for more details. Nursing notified about pt's performance.
--- NOTE | 2021-12-30 18:30 | NUR ---
Patient d/c at this time. [facility] Picc line d/c. Catheter intact. Vitals Stable. No complaints of pain, dizziness or shortness of breath.
[2021-12-30] MEDS ORDERED: hydrALAZINE HCL 25 MG TABLET PO SCH (21:00)
== END 2021-12-30 18:52 | DRG 207 ==
LOC: SED 14:36 → SIC 17:10 → STU 12-02 18:55 → SMU 12-15 10:57
PROVIDERS: ADMIT Internal Medicine; ATTEND Internal Medicine
PROC: 5A0935A Assistance with Respiratory Ventilation, Less than 24 Consecutive Hours, High Flow/Velocity Cannula (ICD-10-PCS; 2021-11-05)
PROC: 5A1955Z Respiratory Ventilation, Greater than 96 Consecutive Hours (ICD-10-PCS; principal; 2021-11-06)
PROC: 0BH17EZ Insertion of Endotracheal Airway into Trachea, Via Natural or Artificial Opening (ICD-10-PCS; 2021-11-06)
PROC: 02HV33Z Insertion of Infusion Device into Superior Vena Cava, Percutaneous Approach (ICD-10-PCS; 2021-11-06)
PROC: B548ZZA Ultrasonography of Superior Vena Cava, Guidance (ICD-10-PCS; 2021-11-06)
PROC: 5A09457 Assistance with Respiratory Ventilation, 24-96 Consecutive Hours, Continuous Positive Airway Pressure (ICD-10-PCS; 2021-12-10)
DX: U07.1 COVID-19 (principal); J96.01 Acute respiratory failure with hypoxia; J96.02 Acute respiratory failure with hypercapnia; J12.82 Pneumonia due to coronavirus disease 2019; E43 Unspecified severe protein-calorie malnutrition; E87.2 Acidosis; N39.0 Urinary tract infection, site not specified; Z68.41 Body mass index [BMI] 40.0-44.9, adult; E78.5 Hyperlipidemia, unspecified; I45.10 Unspecified right bundle-branch block; B36.9 Superficial mycosis, unspecified; S01.81XA Laceration without foreign body of other part of head, initial encounter; X58.XXXA Exposure to other specified factors, initial encounter; E66.01 Morbid (severe) obesity due to excess calories; B96.20 Unspecified Escherichia coli [E. coli] as the cause of diseases classified elsewhere; I11.0 Hypertensive heart disease with heart failure; I50.9 Heart failure, unspecified; Z93.1 Gastrostomy status; Z87.01 Personal history of pneumonia (recurrent); Y93.89 Activity, other specified; Y92.89 Other specified places as the place of occurrence of the external cause; Y99.8 Other external cause status
CPT/HCPCS: 36415; 36600; 71045; 71275; 76376; 80048; 80053; 80202; 81000; 82728; 82803-TC; 82962; 83605; 83615; 83735; 83880; 84066; 84100; 84484; 85007; 85025; 85027; 85379; 85610-TC; 85651-TC; 85730-TC; 86140; 86710; 87040; 87070-TC; 87081; 87086; 87205-TC; 87230-TC; 92610-GN; 93005; 94002; 94003; 94010; 94640; 94660; 94760; 96365; 96366; 96367; 96375; 97110-GO; 97110-GP; 97112-GO; 97112-GP; 97116-GP; 97163-GP; 97530-GO; 97530-GP; 97535-GO; 99285; G0378; J0360; J0456; J0610; J0696; J1100; J1200; J1650; J1940; J2060; J2270; J2543; J2704; J2765; J2930; J3262; J3370; J3480; J3490; J7050; J7060; J7512; Q9967; U0003

== ENCOUNTER 2022-01-29 16:47 | Inpatient (IN) | payer BC, SELFPAY ==
[~2022-01-29] VITALS: Ht 177.8 cm; Wt 145.1 kg
[~2022-01-29 16:47] MED LIST: APIX2.5T PO; DILT120C89 PO; HYDR-4038 PO; PRED5TAB PO
[2022-01-29 16:53] VITALS: BP_SYST 123
[2022-01-29 17:37] LABS: HEMATOCRIT 35.1 % (36-54); HEMOGLOBIN 11.7 g/dL (14.0-18.0); MEAN CORPUSCULAR HEMOGLOBIN 28 pg (27-31); MEAN CORPUSCULAR HGB CONC 33 % (32-36); MEAN CORPUSCULAR VOLUME 85 fL (79.0-98.0); PLATELET COUNT (AUTO) 351 K/uL (130-430); RED BLOOD CELL COUNT(AUTO) 4.15 MIL/uL (4.2-6.2); RED CELL DISTRIBUTION WIDTH 18.3 % (9.0-15.0); WHITE BLOOD COUNT (AUTO) 11.5 K/uL (4.8-10.8)
[2022-01-29 17:45] LABS: ANION GAP 10 (5-15); CHLORIDE 104 mmol/L (98-107); CREATININE 1.07 mg/dL (0.55-1.30); GLUCOSE 115 mg/dL (70-99); SODIUM SERUM 141 mmol/L (136-145); UREA NITROGEN, BLOOD 12 mg/dL (8-21)
[2022-01-29 17:49] LABS: GFR AFRICAN AMERICAN 97 mL/min (>90)
[2022-01-29 18:00] LABS: ALANINE AMINOTRANSFERASE 33 U/L (12-78); ALBUMIN 3.2 g/dL (3.4-4.8); ASPARTATE AMINOTRANSFERASE 17 U/L (10-37); TOTAL BILIRUBIN 0.5 mg/dL (0.0-1.0)
[2022-01-29 18:02] LABS: ATYPICAL LYMPHOCYTES % 3 % (0-0); BAND % (MANUAL) 3 % (0-6); BASOPHILS % (MANUAL) 0 % (0-2); EOSINOPHILS % (MANUAL) 2 % (0-7); LYMPHOCYTES % (MANUAL) 13 % (20-46); MONOCYTES % (MANUAL) 6 % (0-11)
[2022-01-29] MEDS ORDERED: IOHEXOL 350 mgI/mL, 150 ML INFUS..BTL IV ONE (18:14)
[2022-01-29] MEDS ORDERED: CEFEPIME 1 GM in D5W 50 ML IV ONE (19:30)
[2022-01-29] MEDS ORDERED: VANCOMYCIN HCL 1,000 MG in NS 250 ML IV ONE (19:30)
[2022-01-29] MEDS ORDERED: CARV3.1246 PO (19:37)
[2022-01-29] MEDS ORDERED: HYDR-4037 PO (19:41)
[2022-01-29] MEDS ORDERED: DILT30TA36 PO (19:41)
[2022-01-29] MEDS ORDERED: CEFEPIME 1 GM/VIAL (MAXIPIME) ONE ×2 (21:31→21:40)
[2022-01-29] MEDS ORDERED: VANCOMYCIN HCL 1000 MG/VIAL IV ONE (21:31)
[2022-01-29] MEDS: LEVOFLOXACIN IN DEXTROSE 5 % 100 ML IV SCH (22:53)
[2022-01-29] MEDS: D5/0.45 NS 1,000 ML IV SCH (23:00)
[2022-01-29] MEDS: FAMOTIDINE PF 20 MG/2 ML VIAL IVP SCH (23:30)
[2022-01-29] MEDS: IPRATROPIUM/ALBUTEROL SULFATE 3 ML AMPUL.NEB (DUONEB) INH SCH (23:33)
[2022-01-29 23:41] VITALS: BP_SYST 123
[2022-01-30] MEDS ORDERED: PIPERACILLIN/TAZOBACTAM 3.375 GM/VIAL (ZOSYN) IV ONE ×2 (01:14→06:31)
[2022-01-30] MEDS: PIPERACILLIN/TAZO 3.375/DEX-IS 50 ML IV SCH ×4 (01:27→17:03)
[2022-01-30] MEDS ORDERED: NS 500 ML IV ONE (02:36)
[2022-01-30] MEDS ORDERED: IPRATROPIUM/ALBUTEROL SULFATE 3 ML AMPUL.NEB (DUONEB) INH ONE (02:45)
[2022-01-30] MEDS ORDERED: ACETAMINOPHEN 325 MG TABLET ONE (02:47)
[2022-01-30] MEDS: ACETAMINOPHEN 325 MG TABLET PO PRN ×2 (02:50→17:19)
[2022-01-30] MEDS ORDERED: IBUPROFEN 600 MG TABLET ONE (04:00)
[2022-01-30] MEDS ORDERED: IBUPROFEN 600 MG TABLET PO PRN (04:30)
[2022-01-30 05:52] VITALS: BP_SYST 109
[2022-01-30] MEDS ORDERED: MORPHINE 2 MG/ML INJ. SYRINGE ONE (06:08)
[2022-01-30 07:00] LABS: HEMATOCRIT 33.6 % (36-54); HEMOGLOBIN 10.9 g/dL (14.0-18.0); MEAN CORPUSCULAR HEMOGLOBIN 28 pg (27-31); MEAN CORPUSCULAR HGB CONC 32 % (32-36); MEAN CORPUSCULAR VOLUME 85 fL (79.0-98.0); PLATELET COUNT (AUTO) 284 K/uL (130-430); RED BLOOD CELL COUNT(AUTO) 3.96 MIL/uL (4.2-6.2); RED CELL DISTRIBUTION WIDTH 18.2 % (9.0-15.0); WHITE BLOOD COUNT (AUTO) 12.2 K/uL (4.8-10.8)
[2022-01-30 07:18] LABS: CALCIUM 8.2 mg/dL (8.4-11.0); CREATININE 1.52 mg/dL (0.55-1.30)
[2022-01-30 07:29] LABS: ALBUMIN 2.7 g/dL (3.4-4.8); TOTAL BILIRUBIN 0.5 mg/dL (0.0-1.0)
[2022-01-30] MEDS: IPRATROPIUM/ALBUTEROL SULFATE 3 ML AMPUL.NEB (DUONEB) INH SCH ×5 (07:50→23:00)
[2022-01-30 08:00] VITALS: BP_SYST 104
[2022-01-30] MEDS ORDERED: VANCOMYCIN HCL 1,000 MG in NS 250 ML IV SCH (09:00)
[2022-01-30] MEDS ORDERED: POTASSIUM CHLORIDE 20 MEQ TAB.PRT.SR PO ONE (10:45)
[2022-01-30 12:05] VITALS: BP_SYST 117
[2022-01-30 12:16] LABS: BAND % (MANUAL) 3 % (0-6); BASOPHILS % (MANUAL) 0 % (0-2); EOSINOPHILS % (MANUAL) 1 % (0-7); LYMPHOCYTES % (MANUAL) 6 % (20-46); MONOCYTES % (MANUAL) 4 % (0-11)
[2022-01-30] MEDS: VANCOMYCIN HCL 1,000 MG in NS 250 ML IV SCH ×2 (15:11→21:40)
[2022-01-30 16:00] VITALS: BP_SYST 128
[2022-01-30] MEDS: D5/0.45 NS 1,000 ML IV SCH (17:02)
[2022-01-30 21:13] VITALS: BP_SYST 103
[2022-01-30] MEDS: VORICONAZOLE IV SCH (22:07)
[2022-01-30] MEDS: NS IV SCH (22:07)
[2022-01-31] MEDS: PIPERACILLIN/TAZO 3.375/DEX-IS 50 ML IV SCH ×4 (00:40→17:04)
[2022-01-31] MEDS: FAMOTIDINE PF 20 MG/2 ML VIAL IVP SCH ×2 (00:40→21:54)
[2022-01-31 00:44] VITALS: BP_SYST 102
[2022-01-31] MEDS: IPRATROPIUM/ALBUTEROL SULFATE 3 ML AMPUL.NEB (DUONEB) INH SCH ×6 (03:00→23:32)
[2022-01-31] MEDS: VANCOMYCIN HCL 1,000 MG in NS 250 ML IV SCH ×3 (05:52→23:55)
[2022-01-31 06:26] LABS: CALCIUM 8.3 mg/dL (8.4-11.0); CREATININE 1.53 mg/dL (0.55-1.30); POTASSIUM 3.6 mmol/L (3.5-5.1)
[2022-01-31 07:24] LABS: BASOPHILS % (AUTO) 0.1 % (0.0-2.0); EOSINOPHILS # (AUTO) 0.4 K/uL (0.0-0.4); EOSINOPHILS % (AUTO) 3.8 % (0.0-4.0); HEMATOCRIT 33.6 % (36-54); HEMOGLOBIN 10.9 g/dL (14.0-18.0); LYMPHOCYTES # (AUTO) 0.7 K/uL (1.0-5.5); LYMPHOCYTES % (AUTO) 7.2 % (20.5-51.5); MEAN CORPUSCULAR HEMOGLOBIN 28 pg (27-31); MEAN CORPUSCULAR HGB CONC 33 % (32-36); MEAN CORPUSCULAR VOLUME 85 fL (79.0-98.0); MONOCYTES # (AUTO) 0.4 K/uL (0.0-1.0); MONOCYTES % (AUTO) 4.2 % (1.7-9.3); NEUTROPHILS # (AUTO) 8.8 K/uL (1.8-7.7); NEUTROPHILS % (AUTO) 84.7 % (40.0-70.0); PLATELET COUNT (AUTO) 278 K/uL (130-430); RED BLOOD CELL COUNT(AUTO) 3.95 MIL/uL (4.2-6.2); RED CELL DISTRIBUTION WIDTH 18.4 % (9.0-15.0); WHITE BLOOD COUNT (AUTO) 10.3 K/uL (4.8-10.8)
[2022-01-31 08:03] VITALS: BP_SYST 147
[2022-01-31 08:52] VITALS: BP_SYST 97
[2022-01-31] MEDS: NS IV SCH (08:55)
[2022-01-31] MEDS: VORICONAZOLE IV SCH (08:55)
[2022-01-31] MEDS: hydrALAZINE HCL 25 MG TABLET PO SCH ×2 (09:00→21:57)
[2022-01-31] MEDS: DILTIAZEM HCL 240 MG CAP.SR.24H PO SCH (09:00)
[2022-01-31] MEDS: D5/0.45 NS 1,000 ML IV SCH (13:58)
[2022-01-31 16:30] VITALS: BP_SYST 124
[2022-01-31] MEDS: LEVOFLOXACIN IN DEXTROSE 5 % 100 ML IV SCH (21:44)
[2022-01-31] MEDS: VORICONAZOLE 200 MG TABLET PO SCH (21:54)
[2022-02-01 00:01] VITALS: BP_SYST 92
[2022-02-01] MEDS: PIPERACILLIN/TAZO 3.375/DEX-IS 50 ML IV SCH ×5 (00:01→22:52)
[2022-02-01 00:54] VITALS: BP_SYST 99
[2022-02-01] MEDS: IPRATROPIUM/ALBUTEROL SULFATE 3 ML AMPUL.NEB (DUONEB) INH SCH ×5 (03:00→20:16)
[2022-02-01 05:43] VITALS: BP_SYST 101
[2022-02-01] MEDS: DILTIAZEM HCL 240 MG CAP.SR.24H PO SCH (09:20)
[2022-02-01] MEDS: hydrALAZINE HCL 25 MG TABLET PO SCH ×2 (09:21→21:08)
[2022-02-01 11:16] LABS: ALBUMIN 2.7 g/dL (3.4-4.8); CALCIUM 8.6 mg/dL (8.4-11.0); CREATININE 1.54 mg/dL (0.55-1.30); POTASSIUM 3.6 mmol/L (3.5-5.1); TOTAL BILIRUBIN 0.2 mg/dL (0.0-1.0)
[2022-02-01] MEDS: VORICONAZOLE 200 MG TABLET PO SCH ×2 (11:59→21:07)
[2022-02-01 13:00] VITALS: BP_SYST 125
[2022-02-01] MEDS: VANCOMYCIN HCL 1,500 MG in NS 250 ML IV SCH (13:12)
[2022-02-01 16:52] VITALS: BP_SYST 118
[2022-02-01 21:03] VITALS: BP_SYST 91
[2022-02-01] MEDS: LEVOFLOXACIN IN DEXTROSE 5 % 100 ML IV SCH (21:06)
[2022-02-01] MEDS: FAMOTIDINE PF 20 MG/2 ML VIAL IVP SCH (21:25)
[2022-02-02] MEDS: VANCOMYCIN HCL 1,500 MG in NS 250 ML IV SCH ×2 (00:37→12:12)
[2022-02-02 00:38] VITALS: BP_SYST 94
[2022-02-02] MEDS: IPRATROPIUM/ALBUTEROL SULFATE 3 ML AMPUL.NEB (DUONEB) INH SCH ×7 (03:00→23:48)
[2022-02-02] MEDS: D5/0.45 NS 1,000 ML IV SCH ×3 (03:12→23:45)
[2022-02-02] MEDS: PIPERACILLIN/TAZO 3.375/DEX-IS 50 ML IV SCH ×4 (06:04→23:33)
[2022-02-02 06:37] LABS: ALBUMIN 2.6 g/dL (3.4-4.8); CALCIUM 8.4 mg/dL (8.4-11.0); CREATININE 1.47 mg/dL (0.55-1.30); POTASSIUM 3.3 mmol/L (3.5-5.1); TOTAL BILIRUBIN 0.2 mg/dL (0.0-1.0)
[2022-02-02 07:54] LABS: BASOPHILS % (AUTO) 0.1 % (0.0-2.0); EOSINOPHILS # (AUTO) 0.4 K/uL (0.0-0.4); EOSINOPHILS % (AUTO) 5.9 % (0.0-4.0); HEMATOCRIT 30.3 % (36-54); HEMOGLOBIN 9.8 g/dL (14.0-18.0); LYMPHOCYTES # (AUTO) 0.7 K/uL (1.0-5.5); LYMPHOCYTES % (AUTO) 9.5 % (20.5-51.5); MEAN CORPUSCULAR HEMOGLOBIN 28 pg (27-31); MEAN CORPUSCULAR HGB CONC 32 % (32-36); MEAN CORPUSCULAR VOLUME 86 fL (79.0-98.0); MONOCYTES # (AUTO) 0.6 K/uL (0.0-1.0); MONOCYTES % (AUTO) 7.5 % (1.7-9.3); NEUTROPHILS # (AUTO) 5.7 K/uL (1.8-7.7); PLATELET COUNT (AUTO) 213 K/uL (130-430); RED BLOOD CELL COUNT(AUTO) 3.53 MIL/uL (4.2-6.2); RED CELL DISTRIBUTION WIDTH 18.4 % (9.0-15.0)
[2022-02-02 08:15] VITALS: BP_SYST 120
[2022-02-02 08:31] LABS: WHITE BLOOD COUNT (AUTO) 7.4 K/uL (4.8-10.8)
[2022-02-02] MEDS: hydrALAZINE HCL 25 MG TABLET PO SCH ×2 (09:04→22:34)
[2022-02-02] MEDS: DILTIAZEM HCL 240 MG CAP.SR.24H PO SCH (09:04)
[2022-02-02] MEDS: VORICONAZOLE 200 MG TABLET PO SCH ×2 (09:05→22:33)
[2022-02-02 12:24] VITALS: BP_SYST 136
[2022-02-02] MEDS ORDERED: KCL 40 mEq in 100 mL (PREMIX) 100 ML IV ONE (14:00)
[2022-02-02] MEDS ORDERED: POTASSIUM CHLORIDE 40 MEQ in NS 250 ML IV ONE (15:00)
[2022-02-02] MEDS ORDERED: POTASSIUM CHLORIDE 20 MEQ TAB.PRT.SR PO ONE (16:00)
[2022-02-02 16:41] VITALS: BP_SYST 131
[2022-02-02 20:00] VITALS: BP_SYST 130
[2022-02-02] MEDS: FAMOTIDINE PF 20 MG/2 ML VIAL IVP SCH (22:15)
[2022-02-02] MEDS: LEVOFLOXACIN IN DEXTROSE 5 % 100 ML IV SCH (22:40)
[2022-02-03] VITALS: BP_SYST 106
[2022-02-03] MEDS: IPRATROPIUM/ALBUTEROL SULFATE 3 ML AMPUL.NEB (DUONEB) INH SCH ×6 (03:00→23:13)
[2022-02-03] MEDS: PIPERACILLIN/TAZO 3.375/DEX-IS 50 ML IV SCH ×3 (06:00→17:37)
[2022-02-03 08:00] VITALS: BP_SYST 121; BP_SYST 124
[2022-02-03] MEDS: VORICONAZOLE 200 MG TABLET PO SCH ×2 (09:10→21:57)
[2022-02-03] MEDS: DILTIAZEM HCL 240 MG CAP.SR.24H PO SCH (09:10)
[2022-02-03] MEDS: hydrALAZINE HCL 25 MG TABLET PO SCH ×2 (09:10→21:57)
[2022-02-03 12:29] VITALS: BP_SYST 124
[2022-02-03 16:55] VITALS: BP_SYST 120
[2022-02-03] MEDS: FAMOTIDINE PF 20 MG/2 ML VIAL IVP SCH (21:56)
[2022-02-03] MEDS: D5/0.45 NS 1,000 ML IV SCH (21:57)
[2022-02-03] MEDS: LEVOFLOXACIN IN DEXTROSE 5 % 100 ML IV SCH (21:57)
[2022-02-04] MEDS: IPRATROPIUM/ALBUTEROL SULFATE 3 ML AMPUL.NEB (DUONEB) INH SCH ×6 (03:00→23:20)
[2022-02-04] MEDS: PIPERACILLIN/TAZO 3.375/DEX-IS 50 ML IV SCH ×4 (06:48→17:21)
[2022-02-04 07:10] LABS: BASOPHILS % (AUTO) 0.3 % (0.0-2.0); EOSINOPHILS # (AUTO) 0.5 K/uL (0.0-0.4); EOSINOPHILS % (AUTO) 7.2 % (0.0-4.0); HEMOGLOBIN 10.6 g/dL (14.0-18.0); LYMPHOCYTES # (AUTO) 1.1 K/uL (1.0-5.5); LYMPHOCYTES % (AUTO) 16.4 % (20.5-51.5); MEAN CORPUSCULAR HEMOGLOBIN 27 pg (27-31); MEAN CORPUSCULAR HGB CONC 32 % (32-36); MEAN CORPUSCULAR VOLUME 85 fL (79.0-98.0); MONOCYTES # (AUTO) 0.5 K/uL (0.0-1.0); MONOCYTES % (AUTO) 7.5 % (1.7-9.3); NEUTROPHILS # (AUTO) 4.4 K/uL (1.8-7.7); NEUTROPHILS % (AUTO) 68.6 % (40.0-70.0); PLATELET COUNT (AUTO) 230 K/uL (130-430); RED BLOOD CELL COUNT(AUTO) 3.87 MIL/uL (4.2-6.2); RED CELL DISTRIBUTION WIDTH 17.6 % (9.0-15.0); WHITE BLOOD COUNT (AUTO) 6.4 K/uL (4.8-10.8)
[2022-02-04 07:36] LABS: CALCIUM 8.8 mg/dL (8.4-11.0); CREATININE 1.22 mg/dL (0.55-1.30); POTASSIUM 3.3 mmol/L (3.5-5.1); TOTAL BILIRUBIN 0.2 mg/dL (0.0-1.0)
[2022-02-04 07:37] LABS: ALBUMIN 2.8 g/dL (3.4-4.8); C-REACTIVE PROTEIN QUANT 3.5 mg/dL (0-0.5)
[2022-02-04 08:00] VITALS: BP_SYST 129
[2022-02-04] MEDS: DILTIAZEM HCL 240 MG CAP.SR.24H PO SCH (09:01)
[2022-02-04] MEDS: hydrALAZINE HCL 25 MG TABLET PO SCH ×2 (09:01→22:54)
[2022-02-04] MEDS: VORICONAZOLE 200 MG TABLET PO SCH ×2 (09:01→21:00)
[2022-02-04 11:52] VITALS: BP_SYST 126
[2022-02-04 16:00] VITALS: BP_SYST 141
[2022-02-04] MEDS: D5/0.45 NS 1,000 ML IV SCH (17:18)
[2022-02-04 20:00] VITALS: BP_SYST 136
[2022-02-04] MEDS: LEVOFLOXACIN IN DEXTROSE 5 % 100 ML IV SCH (22:45)
[2022-02-04] MEDS: FAMOTIDINE PF 20 MG/2 ML VIAL IVP SCH ×2 (22:54→23:02)
[2022-02-05 00:07] LABS: ASPERGILLUS FLAVUS Negative (Neg:<1:1); ASPERGILLUS FUMIGATUS Negative (Neg:<1:1)
[2022-02-05] MEDS: PIPERACILLIN/TAZO 3.375/DEX-IS 50 ML IV SCH ×4 (00:43→17:18)
[2022-02-05 02:12] VITALS: BP_SYST 131
[2022-02-05] MEDS: IPRATROPIUM/ALBUTEROL SULFATE 3 ML AMPUL.NEB (DUONEB) INH SCH ×5 (03:00→23:22)
[2022-02-05 06:33] LABS: BASOPHILS % (AUTO) 0.2 % (0.0-2.0); EOSINOPHILS # (AUTO) 0.6 K/uL (0.0-0.4); EOSINOPHILS % (AUTO) 7.6 % (0.0-4.0); HEMATOCRIT 33.8 % (36-54); HEMOGLOBIN 10.9 g/dL (14.0-18.0); LYMPHOCYTES # (AUTO) 1.5 K/uL (1.0-5.5); LYMPHOCYTES % (AUTO) 19.9 % (20.5-51.5); MEAN CORPUSCULAR HEMOGLOBIN 27 pg (27-31); MEAN CORPUSCULAR HGB CONC 32 % (32-36); MEAN CORPUSCULAR VOLUME 85 fL (79.0-98.0); MONOCYTES # (AUTO) 0.5 K/uL (0.0-1.0); MONOCYTES % (AUTO) 6.6 % (1.7-9.3); NEUTROPHILS # (AUTO) 4.8 K/uL (1.8-7.7); NEUTROPHILS % (AUTO) 65.7 % (40.0-70.0); PLATELET COUNT (AUTO) 268 K/uL (130-430); RED BLOOD CELL COUNT(AUTO) 3.98 MIL/uL (4.2-6.2); RED CELL DISTRIBUTION WIDTH 17.7 % (9.0-15.0); WHITE BLOOD COUNT (AUTO) 7.4 K/uL (4.8-10.8)
[2022-02-05 06:55] LABS: CALCIUM 8.6 mg/dL (8.4-11.0); CREATININE 1.23 mg/dL (0.55-1.30); POTASSIUM 3.2 mmol/L (3.5-5.1)
[2022-02-05 08:00] VITALS: BP_SYST 140
[2022-02-05] MEDS: DILTIAZEM HCL 240 MG CAP.SR.24H PO SCH (11:02)
[2022-02-05] MEDS: hydrALAZINE HCL 25 MG TABLET PO SCH ×2 (11:03→22:04)
[2022-02-05] MEDS: VORICONAZOLE 200 MG TABLET PO SCH ×2 (11:09→21:00)
[2022-02-05 11:36] VITALS: BP_SYST 127
[2022-02-05] MEDS: D5/0.45 NS 1,000 ML IV SCH ×2 (11:45→17:15)
[2022-02-05 15:35] VITALS: BP_SYST 135
[2022-02-05 20:00] VITALS: BP_SYST 148
[2022-02-05] MEDS: LEVOFLOXACIN IN DEXTROSE 5 % 100 ML IV SCH (22:04)
[2022-02-06] MEDS: PIPERACILLIN/TAZO 3.375/DEX-IS 50 ML IV SCH ×4 (01:06→17:11)
[2022-02-06 01:18] VITALS: BP_SYST 150
[2022-02-06] MEDS: IPRATROPIUM/ALBUTEROL SULFATE 3 ML AMPUL.NEB (DUONEB) INH SCH ×5 (03:00→23:42)
[2022-02-06 08:00] VITALS: BP_SYST 121
[2022-02-06] MEDS: hydrALAZINE HCL 25 MG TABLET PO SCH ×2 (09:12→21:23)
[2022-02-06] MEDS: DILTIAZEM HCL 240 MG CAP.SR.24H PO SCH (09:12)
[2022-02-06] MEDS: VORICONAZOLE 200 MG TABLET PO SCH ×2 (09:12→21:26)
[2022-02-06 11:51] LABS: MYCOPLASMA PNEUMONIAE IgG 175 U/mL (0-99)
[2022-02-06 12:00] VITALS: BP_SYST 125
[2022-02-06 15:58] VITALS: BP_SYST 127
[2022-02-06 19:45] VITALS: BP_SYST 153
[2022-02-06] MEDS: FAMOTIDINE PF 20 MG/2 ML VIAL IVP SCH (21:21)
[2022-02-06 23:58] VITALS: BP_SYST 138
[2022-02-07] MEDS: PIPERACILLIN/TAZO 3.375/DEX-IS 50 ML IV SCH ×3 (00:37→11:14)
[2022-02-07] MEDS: D5/0.45 NS 1,000 ML IV SCH (00:37)
[2022-02-07] MEDS: IPRATROPIUM/ALBUTEROL SULFATE 3 ML AMPUL.NEB (DUONEB) INH SCH ×3 (03:00→11:40)
[2022-02-07 05:52] LABS: CREATININE 1.13 mg/dL (0.55-1.30)
[2022-02-07 06:16] LABS: POTASSIUM 2.9 mmol/L (3.5-5.1)
[2022-02-07 07:04] LABS: BASOPHILS % (AUTO) 0.4 % (0.0-2.0); EOSINOPHILS # (AUTO) 0.8 K/uL (0.0-0.4); EOSINOPHILS % (AUTO) 8.3 % (0.0-4.0); HEMOGLOBIN 11.3 g/dL (14.0-18.0); LYMPHOCYTES # (AUTO) 1.7 K/uL (1.0-5.5); LYMPHOCYTES % (AUTO) 17.3 % (20.5-51.5); MEAN CORPUSCULAR HEMOGLOBIN 27 pg (27-31); MEAN CORPUSCULAR HGB CONC 32 % (32-36); MEAN CORPUSCULAR VOLUME 85 fL (79.0-98.0); MONOCYTES # (AUTO) 0.6 K/uL (0.0-1.0); MONOCYTES % (AUTO) 6.4 % (1.7-9.3); NEUTROPHILS # (AUTO) 6.5 K/uL (1.8-7.7); NEUTROPHILS % (AUTO) 67.6 % (40.0-70.0); PLATELET COUNT (AUTO) 300 K/uL (130-430); RED BLOOD CELL COUNT(AUTO) 4.23 MIL/uL (4.2-6.2); RED CELL DISTRIBUTION WIDTH 17.9 % (9.0-15.0); WHITE BLOOD COUNT (AUTO) 9.6 K/uL (4.8-10.8)
[2022-02-07] MEDS ORDERED: POTASSIUM CHLORIDE 20 MEQ/PKT PACKET PO ONE (07:30)
[2022-02-07 07:53] VITALS: BP_SYST 138
[2022-02-07] MEDS: DILTIAZEM HCL 240 MG CAP.SR.24H PO SCH (08:46)
[2022-02-07] MEDS: hydrALAZINE HCL 25 MG TABLET PO SCH (08:47)
[2022-02-07 12:00] VITALS: BP_SYST 135
[2022-02-07] MEDS ORDERED: AUG875 PO (13:38)
[2022-02-07 14:25] VITALS: BP_SYST 140
[2022-02-07] MEDS ORDERED: POTASSIUM CHLORIDE 20 MEQ TAB.PRT.SR PO SCH (21:00)
[2022-02-07 22:06] LABS: MYCOPLASMA PNEUMONIAE IgM <770 U/mL (0-769)
== END 2022-02-07 15:00 | disposition home or self-care (01) | DRG 871 ==
LOC: SED 16:47 → STU 19:42 → SMU 02-04 14:56
PROVIDERS: ADMIT Internal Medicine; ATTEND Internal Medicine
DX: A41.9 Sepsis, unspecified organism (principal); J96.01 Acute respiratory failure with hypoxia; J18.9 Pneumonia, unspecified organism; R65.21 Severe sepsis with septic shock; E44.0 Moderate protein-calorie malnutrition; J94.2 Hemothorax; I42.9 Cardiomyopathy, unspecified; Z68.42 Body mass index [BMI] 45.0-49.9, adult; E66.01 Morbid (severe) obesity due to excess calories; G47.30 Sleep apnea, unspecified; Z20.822 Contact with and (suspected) exposure to COVID-19; I11.0 Hypertensive heart disease with heart failure; I50.9 Heart failure, unspecified; Z86.16 Personal history of COVID-19; I25.2 Old myocardial infarction; Z79.01 Long term (current) use of anticoagulants; Z79.899 Other long term (current) drug therapy; Z87.01 Personal history of pneumonia (recurrent)
CPT/HCPCS: 0241U; 36415; 36600; 71045; 71250-TC; 71275; 76376; 80048; 80053; 80202; 82803-TC; 83605; 83880; 84484; 85007; 85025; 85027; 85379; 85651-TC; 86140; 86480; 86606; 86635; 86738; 87040; 87081; 87116; 87305; 87449; 93306; 94640; 94760; 96365; 96366; 96367; 99291; G0378; J0692; J1956; J2270; J2543; J3370; J3465; J3480; J3490; J7050; Q9967